=== PATIENT | female | born 1975 | race Caucasian/White ===

== ENCOUNTER 2019-05-13 12:29 | Inpatient (IN) | payer MEDICAID, SELFPAY ==
[2019-05-13 12:35] VITALS: BP 124/79; PULSE 85; RESP 16; TEMP 36.9; O2SAT 98; BMI 20.5
--- NOTE | 2019-05-13 12:40 | ECG_ITS ---
Measurements Intervals [place] Rate: 69 P: 50 CT: 126 QRS: 69 QRSD: 85 T: 42 QT: 409 QTc: 439 SINUS RHYTHM No previous ECG available for comparison Electronically Signed On 05-14-2019 9:01:07 CDT by Andreas Chowdary M.D. [email or web address]
--- NOTE | 2019-05-13 12:44 | ED_ITS ---
Entered by Lizy Lawrence, acting as scribe for Alyssa Caballero [place] May 13, 2019 12:29 HPI - Psych General: Chief Complaint: Psychiatric Symptoms Stated Complaint: mhe Time Seen by Provider: 05/13/19 12:38 Source: patient Mode of arrival: ambulatory Limitations: no limitations History of Present Illness: HPI Narrative: 44 yo Female presents to ED with complaints of darrel and suicidal ideation. Pt states that she has not been taking psychiatric medications because she didn't feel like her medications were correct before. Pt states that she has been thinking about killing herself recently. Pt states that she would like to come into the [facility] to get some help and get put on the correct medications. MD complaint: suicidal ideation Onset (ago): week(s) Duration: constant History of same: Yes Relieving factors: none Exacerbating factors: none Context: not taking psychiatric medications Associated psychiatric symptoms: suicidal ideation and other (manic episodes) Associated symptoms: Reports suicidal ideation and other (manic episodes) Treatments prior to arrival: none If self harm: admits thoughts of self harm Review of Systems General: Reports: other (negative unless marked) Const: Denies: fever, chills, body aches, fatigue, malaise or diaphoresis Eyes: Denies: change in vision or blurry vision ENMT: Denies: throat pain, painful swallowing, hoarseness, ear pain, ear discharge, Change in hearing or nasal discharge Card: Denies: chest pain, palpitations, irregular heart rhythm, syncope, pre- syncope, shortness of breath on exertion or shortness of breath when lying down Resp: Denies: shortness of breath, productive cough, non-productive cough, wheezing, coughing up blood or chest congestion GI: Denies: abdominal pain, nausea, vomiting, vomiting blood, coffee grounds in vomit, diarrhea, constipation, cramping, blood in stool or black tarry stool : Denies: flank pain, painful urination, urinary frequency, urinary urgency, decreased urine ouput, urinary incontinence or blood in urine Musc: Denies: neck pain, back pain, extremity pain, extremity swelling, joint pain, joint swelling, joint warmth or joint stiffness Skin/Breast: Denies: rash, skin tenderness or yellow skin Neuro: Denies: headache, numbness in extremities, weakness in extremities, changes in sensation, lack of coordination, difficulty walking, dizziness, vertigo or confusion Psych: Reports: suicidal ideation and other (manic episodes) Endo: Denies: excessive thirst, tired all the time, cold intolerance, excessive sweating, flushing or hot flashes Jacky/Lymph: Denies: easy bruising, easy bleeding, petechiae or enlarged lymph nodes All/Imm: Denies: hives, throat swelling, tongue swelling, facial swelling or acute wheezing PFSH ED PFSH: Medical History (Updated 05/13/19 @ 13:25 by Alyssa Caballero) Bipolar disorder Social History Smoking and tobacco status: current every day smoker Female Reproductive History: Date of last menstrual period: 04/28/19 Physical Exam Const: COMMON NORMALS: no apparent distress, oriented x3, no limitations, healthy appearing and well nourished EXAM LIMITATIONS: no altered mental status GENERAL APPEARANCE: cooperative, well kempt and well developed ORIENTATION/CONSCIOUSNESS: Yes awake HENMT: COMMON NORMALS: normocephalic, head/scalp atraumatic, hearing grossly normal bilaterally, external ears normal, EAC's normal, external nose normal and moist oral mucous membranes HEAD & SCALP: normal to inspection, normocephalic and atraumatic FACE & SINUS: normal facial exam and face symmetric NOSE: external nose normal and nares normal EXTERNAL EAR: Yes external ears normal EXTERNAL AUDITORY CANAL: EAC's normal MOUTH: oral and palatal mucosa normal and tongue normal Eye: COMMON NORMALS: PERRL, EOMs intact bilaterally, conjunctivae normal and no scleral icterus GENERAL EYE: normal appearance of both eyes and normal light reflex CONJUNCTIVA: Yes conjunctivae normal SCLERA: sclerae normal CORNEA: Yes corneas normal PUPIL: Yes PERRL DIRECT OPHTHALMOSCOPY: Yes normal light reflex Neck/C-Spine: COMMON NORMALS: full ROM, no lymphadenopathy, supple, no meningeal signs and no JVD GENERAL: Yes normal visual inspection and Yes trachea midline CERVICAL SPINE: Yes cervical ROM normal Chest: COMMONS NORMALS: inspection of chest normal and palpation of chest normal Resp: COMMON NORMALS: normal respiratory effort, no retractions, no use of accessory muscles and clear to auscultation bilaterally EFFORT & INSPECTION: Yes able to speak in complete sentences AUSCULTATION: clear to auscultation bilaterally Cardio: COMMON NORMALS: no JVD, regular rate, regular rhythm, S1 normal heart sound, S2 normal heart sound, no gallops, no clicks, no murmurs and no rub JUGULAR VENOUS DISTENTION: no JVD RATE: regular rate RHYTHM: regular rhythm HEART SOUNDS: S1 normal and S2 normal GI: COMMON NORMALS: soft to palpation, non-tender, no hepatosplenomegaly and no masses INSPECTION: Yes normal to inspection PALPATION: Yes soft and Yes no hepatosplenomegaly : COMMON NORMALS: Yes no CVA tenderness BLADDER/KIDNEY EXAM: Yes no CVA tenderness Back/Pelvis: COMMON NORMALS: no CVA tenderness, thoracic and lumbar spine normal to inspection, no thoracic nor lumbar tenderness and thoraco-lumbar ROM normal Extremity: COMMON NORMALS: normal to inspection, full ROM, normal capillary refill, no joint enlargement, no clubbing, cyanosis or edema and no calf tenderness Neuro: COMMON NORMALS: oriented x3, CN's II-XII intact bilaterally, moves all extremities, no focal motor deficits and no sensory deficits noted MENINGEAL SIGNS: Yes no meningeal signs Psych: COMMON NORMALS: mental status grossly normal, thought process normal, cooperative, affect normal, speech normal and activity/motor behavior normal APPEARANCE: Yes well kempt SPEECH: Yes normal speech THOUGHT PROCESS: normal thought process Skin: COMMON NORMALS: no rashes or lesions noted, skin turgor normal, no jaundice, no petechiae and no mottling GENERAL SKIN EXAM: no rashes or lesions noted and turgor normal MDM - Psych MDM Narrative: Medical decision making narrative: The case was reviewed with Dr. Potts, he agrees to admission for a voluntary evaluation for suicidal ideation. Lab Data: Labs: Lab Results 05/13/19 05/13/19 05/13/19 Range/Units 12:54 12:54 12:54 WBC 6.4 (4.0-10.0) 10^3/ uL RBC 4.16 (4.1-5.3) 10^6/u L Hgb 11.8 (11.5-15.3) g/dL Hct 36.9 L (37.0-47.0) % MCV 88.7 (81-99) fL MCH 28.4 (28.0-34.0) pg MCHC 32.0 (30.0-36.0) g/dL RDW 14.2 (12.1-15.1) % Plt Count 353 (130-400) 10^3/c mm MPV 10.2 (7.4-10.4) fL Neut % (Auto) 47.0 % Lymph % (Auto) 42.5 % Roane % (Auto) 8.3 % Eos % (Auto) 1.4 % Baso % (Auto) 0.8 % Neut # (Auto) 3.0 (1.8-7.7) 10^3/u L Lymph # (Auto) 2.7 (0.8-4.8) 10^3/u L Roane # (Auto) 0.5 (0.2-0.9) 10^3/u L Eos # (Auto) 0.1 (0.0-0.8) 10^3/u L Baso # (Auto) 0.1 (0.0-0.1) 10^3/u L Nucleated RBC % (a uto) 0 % Nucleated RBCs # 0.0 /100WBC Sodium 136 (136-145) mmol/L Potassium 4.4 (3.5-5.1) mmol/L Chloride 102 (98-107) mmol/L Carbon Dioxide 22 (22-29) mmol/L Anion Gap 16.4 (5-19) BUN 10 (6-20) mg/dL Creatinine 0.7 (0.5-0.9) mg/dL GFR Calculation 90.9 (90-130) mL/min Glucose 100 (65-115) mg/dL Calculated Osmolal ity 278 L (285-295) mOsm/k g Calcium 9.6 (8.5-10.5) mg/dL Total Bilirubin 0.4 (0.15-1.2) mg/dL AST 38 H (0-32) U/L ALT 42 H (0-33) U/L Alkaline Phosphata se 52 (35-105) IU/L Total Protein 7.8 (6.6-8.7) g/dL Albumin 4.1 (3.5-5.2) g/dL Globulin 3.7 (1.3-4.6) g/dL TSH 0.36 (0.27-4.20) uIU/ mL HCG, Qual (Negative) Salicylates < 0.3 L (3-10) mg/dL Acetaminophen < 5.0 L (10-30) ug/mL Phenytoin 0.8 L (10-20) ug/mL Valproic Acid 2.8 L (50-100) mcg/mL Carbamazepine 2.0 L (4.0-12.0) ug/mL [place] 0.1 L (0.6-1.2) mmol/L Ethyl Alcohol < 10 (0-10) mg/dL 05/13/19 Range/Units 13:19 WBC (4.0-10.0) 10^3/ uL RBC (4.1-5.3) 10^6/u L Hgb (11.5-15.3) g/dL Hct (37.0-47.0) % MCV (81-99) fL MCH (28.0-34.0) pg MCHC (30.0-36.0) g/dL RDW (12.1-15.1) % Plt Count (130-400) 10^3/c mm MPV (7.4-10.4) fL Neut % (Auto) % Lymph % (Auto) % Roane % (Auto) % Eos % (Auto) % Baso % (Auto) % Neut # (Auto) (1.8-7.7) 10^3/u L Lymph # (Auto) (0.8-4.8) 10^3/u L Roane # (Auto) (0.2-0.9) 10^3/u L Eos # (Auto) (0.0-0.8) 10^3/u L Baso # (Auto) (0.0-0.1) 10^3/u L Nucleated RBC % (a uto) % Nucleated RBCs # /100WBC Sodium (136-145) mmol/L Potassium (3.5-5.1) mmol/L Chloride (98-107) mmol/L Carbon Dioxide (22-29) mmol/L Anion Gap (5-19) BUN (6-20) mg/dL Creatinine (0.5-0.9) mg/dL GFR Calculation (90-130) mL/min Glucose (65-115) mg/dL Calculated Osmolal ity (285-295) mOsm/k g Calcium (8.5-10.5) mg/dL Total Bilirubin (0.15-1.2) mg/dL AST (0-32) U/L ALT (0-33) U/L Alkaline Phosphata se (35-105) IU/L Total Protein (6.6-8.7) g/dL Albumin (3.5-5.2) g/dL Globulin (1.3-4.6) g/dL TSH (0.27-4.20) uIU/ mL HCG, Qual Negative (Negative) Salicylates (3-10) mg/dL Acetaminophen (10-30) ug/mL Phenytoin (10-20) ug/mL Valproic Acid (50-100) mcg/mL Carbamazepine (4.0-12.0) ug/mL [place] (0.6-1.2) mmol/L Ethyl Alcohol (0-10) mg/dL EKG Data^: EKG 1: Attestation: I personally reviewed and interpreted this EKG as follows: EKG interpretation date: 05/13/19 EKG interpretation time: 13:22 Interpretation: Normal sinus rhythm at 69 beats a minute, normal intervals, no blocks. No acute changes. Discharge Plan Discharge Patient Disposition: Placed in Observation Admit Provider: Yohan Potts Clinical Impression: Suicidal ideation Condition: Stable Discharge Date/Time: 05/13/19 17:24 Coding Level of Care Code ED Welt Wheeler for Chg Fwd Exam Comprehensive The documentation recorded by the Melinda campbell Carmen, accurately reflects the service I personally performed and the decisions made by Ada joyner Eli N May 13, 2019 12:29
--- NOTE | 2019-05-13 13:12 | PC.PHAR ---
pt states she has been out of celexa,seroquel,and ativan for a month
[2019-05-13 13:14] LABS: Basophils # 0.1 10^3/uL (0.0-0.1); Basophils % 0.8 %; Eosinophils # 0.1 10^3/uL (0.0-0.8); Eosinophils % 1.4 %; Hematocrit 36.9 % (37.0-47.0); Hemoglobin 11.8 g/dL (11.5-15.3); Lymphocytes # 2.7 10^3/uL (0.8-4.8); Lymphocytes % 42.5 %; Mean Corpuscular Hemoglobin 28.4 pg (28.0-34.0); Mean Corpuscular Volume 88.7 fL (81-99); Mean Platelet Volume 10.2 fL (7.4-10.4); Monocytes # 0.5 10^3/uL (0.2-0.9); Monocytes % 8.3 %; Nucleated Red Blood Cells % 0 %; Platelet Count 353 10^3/cmm (130-400); Red Blood Count 4.16 10^6/uL (4.1-5.3); Red Cell Distribution Width 14.2 % (12.1-15.1); White Blood Count 6.4 10^3/uL (4.0-10.0)
[2019-05-13 13:26] LABS: Lithium 0.1 mmol/L (0.6-1.2)
[2019-05-13 13:38] LABS: Alanine Aminotransferase 42 U/L (0-33); Albumin Level 4.1 g/dL (3.5-5.2); Alkaline Phosphatase 52 IU/L (35-105); Anion Gap 16.4 (5-19); Aspartate Amino Transferase 38 U/L (0-32); Blood Urea Nitrogen 10 mg/dL (6-20); Calcium 9.6 mg/dL (8.5-10.5); Carbon Dioxide 22 mmol/L (22-29); Chloride 102 mmol/L (98-107); Globulin 3.7 g/dL (1.3-4.6); Glomerular Filtration Rate 90.9 mL/min (90-130); Glucose 100 mg/dL (65-115); Osmolality Calculated 278 mOsm/kg (285-295); Phenytoin Dilantin 0.8 ug/mL (10-20); Potassium 4.4 mmol/L (3.5-5.1); Sodium 136 mmol/L (136-145); Thyroid Stimulating Hormone 0.36 uIU/mL (0.27-4.20); Total Bilirubin 0.4 mg/dL (0.15-1.2); Total Protein 7.8 g/dL (6.6-8.7); Valproic Acid Level 2.8 mcg/mL (50-100)
[2019-05-13 13:41] LABS: Acetaminophen < 5.0 ug/mL (10-30); Alcohol Level < 10 mg/dL (0-10); Salicylate < 0.3 mg/dL (3-10)
[2019-05-13 14:03] LABS: HCG Qualitative Urine. Negative (Negative)
[2019-05-13 16:00] VITALS: BP 117/79; PULSE 67; RESP 15; TEMP 37.1; O2SAT 98
--- NOTE | 2019-05-13 16:04 | PC.NURSE ---
pateint sleeping quietly no problems at all
[2019-05-13 16:21] VITALS: BP 113/82; PULSE 81; RESP 18; TEMP 37; O2SAT 99
[2019-05-13 16:56] VITALS: BP 113/82; PULSE 81; RESP 18; TEMP 37; O2SAT 99
[2019-05-13] MEDS: hyDROXYzine 25 mg Capsule 50 MG PO (17:18)
--- NOTE | 2019-05-13 17:18 | PC.NURSE ---
Addendum entered by Roshni Cosby LPN 05/13/19 18:52: prn med effective no further c/o anxiety pt asleep in bed in room Original Note: PRN VISTARIL 50 MG GIVEN PO PER PT C/O INCREASED ANXIETY. PT SPECIFICALLY ASKING FOR ATIVAN WILL CONT TO MONITOR
[2019-05-13] MEDS: nicotine 2 mg Gum BUCCAL (18:02)
[2019-05-13] MEDS: OLANZapine ODT 5 MG TABLET PO (18:02)
--- NOTE | 2019-05-13 18:02 | PC.NURSE ---
PRN ZYPREXA ZIDUS 5 MG i FOR AGITATION, AGGRESSION AND VERBAL ALTERCATION WITH ANOTHER PATIENT.
[2019-05-13 19:03] LABS: Amphetamines Screen Urine Negative (Negative); Barbiturates Screen Urine Negative (Negative); Benzodiazepines Screen Urine Negative (Negative); Cocaine Screen Urine Negative (Negative); Opiate Screen Urine Negative (Negative); PCP Screen Urine Negative (Negative); THC Screen Urine Negative (Negative)
[2019-05-13 20:58] VITALS: BP 111/63; PULSE 76; RESP 22; TEMP 36.8; O2SAT 97
[2019-05-13 22:00] VITALS: BP 111/63; PULSE 76; RESP 22; TEMP 36.8; O2SAT 97
[2019-05-14 06:00] VITALS: BP 107/63; PULSE 64; RESP 17; TEMP 36.7; O2SAT 100
--- NOTE | 2019-05-14 10:48 | PM.NHP ---
Providers/Chief Complaint Admitting Physician: Yohan Potts MD Chief Complaint: mhe HPI [facility] History of Present Illness Tamie Mathew is a 44 year old female who presented to the emergency room reporting that she was suicidal and had been off of her medication. She endorsed that her medications had not been effective and so she had stopped taking them. She was admitted to the neuropsychiatric unit for definitive treatment. She presents as a willing patient but a poor historian. Most of her answers were some version of I do not know. We reviewed her charts and we discussed the risks benefits and alternatives of restarting medications based on her reports and she understood and agreed to proceed as is documented in the note. We started Seroquel 100 mg p.o. nightly which she reports has been extremely effective in stabilizing her. We also started or agreed to start Celexa 20 mg p.o. every morning. Given her propensity to answer I will no we reviewed her most recent psychiatric evaluation from an inpatient stay. She endorsed that the substance of it was accurate and represented to her reality at that time as she was denying any significant changes at this time. Per most recent [facility] [place]: History of Present Illness Date of Service: Oct 28, 2015 Chief Complaint: I don't care anymore HPI: Ms. Mathew is a 40-year-old female who is well known to a behavioral health services who was brought to the emergency department for worsening suicidal ideation in the context of recent family conflict. It appears that within the past 2 days associates had a conflict with her mother and her sister and they kicked me out of the house . Patient reports that she was doing fine until this incident, reporting good mood, but low appetite, but experiencing the usual life conflicts. She states that she chronically struggles with suicidal ideation. Patient does have a history of substance use and reports that she used amphetamines and opioids 2 days ago. She also reports that she drank some alcohol. She was quite vague about amounts. She does admit to intravenous drug use, has a diagnosis of hepatitis C, states that she was tested for HIV in September was negative. She smokes 3 cigarettes per day She denies any symptoms consistent with darrel, hypomania, psychosis. With regard to anxiety symptoms and she states I am too tired to care . She is hoping to get help with her suicidal ideation and also safely detox from her substances. Allergies: Coded Allergies: NAPROXEN (Unverified Allergy, Unknown, 10/18/13) Meds NPU Allergies Allergy/AdvReac Type Severity Reaction Status Date / Time lithium AdvReac Severe Unknown Verified 05/15/19 18:48 PFSH N[facility] PFSH: Medical History (Updated 06/04/19 @ 08:05 by Yohan Potts MD) Bipolar 1 disorder, mixed, moderate Bipolar disorder Family History (Updated 05/15/19 @ 09:22 by Kenneth Cooper) Denies family history of Dementia Psychiatric illness Suicide Social History Smoking and tobacco status: current every day smoker Mental Status Exam MSE Comments: This is a slender/underweight white female with adequate dress grooming and eye contact. No abnormal movements. Cooperative with exam in no acute distress. Speech was normal rate and volume mood described as manic affect slightly subdued. Thought process organized. Thought content: Patient denied any suicidal or homicidal ideation at this moment, there were no delusions reported or noted, she denies any auditory or visual hallucinations. Attention and concentration are intact and memory is unreliable but none were formally tested. She is alert and oriented x3. Insight and judgment are limited. Vitals/I&O/Wt Last Vital Signs Temp 99.1 F 05/16/19 16:32 Pulse 90 05/16/19 16:32 Resp 20 H 05/16/19 16:32 BP 111/65 05/16/19 16:32 Pulse Ox 96 05/16/19 16:32 Data NPU : 05/13/19 12:54 05/13/19 12:54 A&P Assessment and plan (1) Bipolar 1 disorder, mixed, moderate: This is a 44-year-old white female with history of bipolar disorder recently off of medication presenting to the emergency room with suicidal thoughts and desiring to be admitted in restart her medications. 1. Continue current medication. Except: 2. Start Celexa 20 mg p.o. every morning and Seroquel 100 mg p.o. nightly. 3. Encourage individual, group and milieu therapy. 4. Continue to 15-minute checks for safety. Status: Acute Involuntary Hold Information 96 Hour Hold: 96 Hour Involuntary Admission: No Attestations [facility] Medical Necessity Statement*: Inpatient hospitalization is medically necessary and the clinically appropriate intervention at this time. We will monitor medications and adjust as indicated. Likely length of stay 3-5 days. Coding Level of Care Code Acute Agricultural Sales Representative for Chg Fwd Diagnoses Bipolar 1 disorder, mixed, moderate F31.62
[2019-05-14 13:45] VITALS: BP 95/58; PULSE 77; RESP 16; TEMP 36.3; O2SAT 98
[2019-05-14 14:00] VITALS: BP 95/58; PULSE 77; RESP 16; TEMP 36.3; O2SAT 98
[2019-05-14] MEDS: citalopram 20 mg Tablet PO (17:55)
[2019-05-14] MEDS: OLANZapine ODT 5 MG TABLET PO (17:55)
--- NOTE | 2019-05-14 17:55 | PC.NURSE ---
Addendum entered by Lisset Ambrose LPN 05/14/19 18:46: medication effective. patient is lying in bed resting, respiration even and unlabored. Original Note: PRN ZYPREXA ZYDIS ZYPREXA ZYDIS 5MG PO PER PATIENT C/O AGITATION/ANXIETY. WILL CONTINUE TO MONITOR FOR MEDICATION EFFECTIVENESS.
[2019-05-14] MEDS: quetiapine 100 mg Tablet PO (20:28)
--- NOTE | 2019-05-14 20:28 | PC.NURSE ---
HS MED GIVEN, SLEEPING MED OFFERED BUT REFUSED AT THIS TIME.
[2019-05-14 21:53] VITALS: BP 86/51; PULSE 70; RESP 16; TEMP 36.8; O2SAT 99
[2019-05-15 06:00] VITALS: BP 104/72; PULSE 86; RESP 16; TEMP 36.8; O2SAT 95
--- NOTE | 2019-05-15 08:56 | PM.NHP ---
Providers/Chief Complaint Admitting Physician: Yohan Potts MD Primary Care Provider: Unknown Chief Complaint: mhe HPI NPU History of Present Illness Tamie Mathew is a 44 year old female with a known history of bipolar disorder. She complains of racing thoughts, flight of ideas, impulsiveness, decreased need for sleep agitation and suicidal ideation. The patient reports she was diagnosed with bipolar disorder (unknown type) ever since I was an adult. She was taking medications but stopped them because she didn't feel like they were helping her. When she is depressed she has no motivation, but calms reclusive, likes to sleep all the time and is afflicted with suicidal ideation. At times she has symptoms pertinent to darrel and depression and probably has mixed episodes. The patient has been thinking about killing herself recently. She seeks admission to get help and receive the correct medications. She says that quetiapine 100 mg p.o. nightly smooths out her mood swings and citalopram 40 mg p.o. daily is effective for her depressive episodes. She says the reason she quit is that she is not on Medicaid and cannot afford these medicines. She says she was tried on lithium long ago and developed an allergic reaction. She is not able at this time to clarify further. Review of Systems Narrative: General: Reports: other (negative unless marked) Const: Denies: fever, chills, body aches, fatigue, malaise or diaphoresis Eyes: Denies: change in vision or blurry vision ENMT: Denies: throat pain, painful swallowing, hoarseness, ear pain, ear discharge, Change in hearing or nasal discharge Card: Denies: chest pain, palpitations, irregular heart rhythm, syncope, pre-syncope, shortness of breath on exertion or shortness of breath when lying down Resp: Denies: shortness of breath, productive cough, non-productive cough, wheezing, coughing up blood or chest congestion GI: Denies: abdominal pain, nausea, vomiting, vomiting blood, coffee grounds in vomit, diarrhea, constipation, cramping, blood in stool or black tarry stool : Denies: flank pain, painful urination, urinary frequency, urinary urgency, decreased urine ouput, urinary incontinence or blood in urine Musc: Denies: neck pain, back pain, extremity pain, extremity swelling, joint pain, joint swelling, joint warmth or joint stiffness Skin/Breast: Denies: rash, skin tenderness or yellow skin Neuro: Denies: headache, numbness in extremities, weakness in extremities, changes in sensation, lack of coordination, difficulty walking, dizziness, vertigo or confusion Psych: Reports: suicidal ideation and other (manic episodes) Endo: Denies: excessive thirst, tired all the time, cold intolerance, excessive sweating, flushing or hot flashes Jacky/Lymph: Denies: easy bruising, easy bleeding, petechiae or enlarged lymph nodes All/Imm: Denies: hives, throat swelling, tongue swelling, facial swelling or acute wheezing. Meds NPU Home Medications Medication Instructions Recorded Confirmed Type diphenhydramine HCl [Benadryl] 50 mg PO BEDTIME PRN 05/13/19 05/13/19 History melatonin 10 mg PO BEDTIME PRN 05/13/19 05/13/19 History Allergies Allergy/AdvReac Type Severity Reaction Status Date / Time lithium AdvReac Severe Unknown Unverified 05/15/19 09:19 PFSH NPU PFSH: Medical History (Updated 05/15/19 @ 10:04 by Kenneth Cooper) Bipolar 1 disorder, mixed, moderate This is a longstanding diagnosis and her current crisis is the product of noncompliance with medications which she asserts are known to have stabilized her. Bipolar disorder Family History (Updated 05/15/19 @ 09:22 by Kenneth Cooper) Denies family history of Dementia Psychiatric illness Suicide Social History Smoking and tobacco status: current every day smoker Other Psychiatric History: Other Psychiatric History: Patient is unable to expand on her past history. To almost every question she answers, I do not know. NHANES Social Connection/Isolation: Are you now , , , , never or living with a partner?: In a typical week, how many times do you talk on the telephone with family, friends, or neighbors?: Three or More Times per Week (Patient lives with her mother and her 10- and 14-year-old children) How often do you get together with friends or relatives?: Three or More Times per Week Do you belong to any clubs or organizations such as quaker groups unions, fraternal or athletic groups, or school groups?: Decline to Answer Social isolation score (0-1 are the most socially isolated patients): 1 Social isolation score reviewed/action taken: Yes Mental Status Exam MSE Comments: This is a 44-year-old, thin, disheveled female who presents at her stated age. Mood is dysphoric and the patient reports suicidal ideation. Thought processes are scattered and speech is somewhat garbled and difficult to understand. It is pressured when she answers questions. At other times she says nothing. She makes no eye contact. Cognition: Patient Appearance: Disheveled/Poor Hygiene Level of Consciousness: Awake, Alert and Drowsy Attention Span Ability: Unable to Focus Level of Alertness: Alert, Sleepy, Unable to Remain Focused on Simple Task, Unable to Repeat Simple Word Forward and Backward and Unable to Repeat String of Integers Forward and Backward Patient Cognition Impaired: Yes (Her innate intelligence is not commensurate with her current performance, possibly reflecting her depressed, suicidal state.) Ability to Follow Directions: Fair Executive Function Ability: Unable to Hold Focus Patient Orientation (long list): Person, Place, Time, Name, Age, Birthday, Month and Year Comprehension Ability: Mild Impairment Memory Description: Intact and Working Intact Perception: None Receptive Language Skills Age Appropriate: Yes Hallucination Type: None Delusion Description: Not Present Thought Process: Disorganized and Flight of Ideas Thought Content: Flight of Ideas, Disorganized and Racing Anxiety: Anxiety Level: Experiencing a Lot of Symptoms and Sensations Precipitating Stress Factors: Environmental Anxiety Triggers: Loss of Coping Ability Affect: Mood Description: Guarded Affect Description: Guarded Depressive Symptoms: Changes in Appetite, Difficulty Concentrating, Difficulty Making Decisions, Hopelessness, Increased Fatigue, Loss of Energy, Loss of Interest in Activities, Low Self Esteem, Recurrent Thoughts of or Suicide, Sleeping More Than Usual and Unhappiness Behavior: Patient Behavior: Appropriate Attitude Description: Passive and Guarded Emotional State Description: Distressed and Sleepy Speech Pattern: Garbled Voice Loudness: Normal Restraint Use Risk: Mental Disorder and Suicidal Thoughts Vitals/I&O/Wt Last Vital Signs Temp 98.3 F 05/15/19 06:00 Pulse 86 05/15/19 06:00 Resp 16 05/15/19 06:00 BP 104/72 05/15/19 06:00 Pulse Ox 95 05/15/19 06:00 Weight last 48 hrs Weight 135 lb Physical Exam Narrative: EXAM NARRATIVE: Skin: Unremarkable Head: Normocephalic. There is no evidence of trauma. Eyes: Pupils equal round regular reactive to light and accommodation. ENT: No inflammation or drainage. Neck: Supple no bruits no thyromegaly. Chest: Clear to auscultation.. Heart: Normal sinus rhythm. Neurologic: No cerebellar, sensory or motor deficit noted. Data NPU : 05/13/19 12:54 05/13/19 12:54 A&P Assessment and plan (1) Bipolar 1 disorder, mixed, moderate: Patient has symptoms of suicidal ideation and manic symptoms. A mixed episode is at hand. The patient has known pharmacotherapy which she asserts has been effective in stabilizing her mood. It should be reinstated as described above. She should be involved in [facility] and healthcare social worker needs to effectuate follow-up care through our [facility] [place] clinic. If possible Medicaid application should be effectuated. Status: Acute Code(s): F31.62 - Bipolar disorder, current episode mixed, moderate (2) Suicidal ideation: This is an acute diagnosis which is the product of noncompliance with medications which she asserts are known to have stabilized her. The patient has known pharmacotherapy which she asserts has been effective in stabilizing her mood. It should be reinstated as described above. She should be involved in [facility] and healthcare social worker needs to effectuate follow-up care through our [facility] clinic. If possible Medicaid application should be effectuated. Status: Acute Code(s): R45.851 - Suicidal ideations Involuntary Hold Information 96 Hour Hold: 96 Hour Involuntary Admission: No Attestations NPU Medical Necessity Statement*: The patient is newly admitted with unstable mood disorder and suicidal ideation. I anticipate 5-7 midnights additional stay. Time Spent in Patient Care: Greater than 35 minutes (>than 50% of time spent in counselling and/or direct pt care on unit). Coding Level of Care Code Acute Silver Solderer for [facility] Fwd Diagnoses Bipolar 1 disorder, mixed, moderate F31.62 Suicidal ideation R45.851
[2019-05-15] MEDS: citalopram 20 mg Tablet PO (09:45)
[2019-05-15 14:00] VITALS: BP 106/59; PULSE 84; RESP 18; TEMP 36.8; O2SAT 98
[2019-05-15] MEDS: OLANZapine ODT 5 MG TABLET PO (18:26)
[2019-05-15] MEDS: nicotine 2 mg Gum BUCCAL (18:26)
--- NOTE | 2019-05-15 18:26 | PC.NURSE ---
PRN ZYPREXA ZYDIS ZYPREXA ZYDIS 5MG PO PER PT C/O AGITATION/ANXIETY. WILL CONTINUE TO MONITOR FOR MEDIATION EFFECTIVENESS.
[2019-05-15] MEDS: quetiapine 100 mg Tablet PO (20:08)
--- NOTE | 2019-05-15 20:11 | PC.NURSE ---
HS meds given at this time.
[2019-05-15 21:27] VITALS: BP 94/59; PULSE 83; RESP 19; TEMP 37.1; O2SAT 100
[2019-05-16 06:00] VITALS: BP 112/70; PULSE 74; RESP 18; TEMP 36.6
[2019-05-16] MEDS: citalopram 20 mg Tablet 40 MG PO (09:03)
[2019-05-16] MEDS: nicotine 2 mg Gum BUCCAL (09:18)
[2019-05-16] MEDS: hyDROXYzine 25 mg Capsule 50 MG PO (10:09)
--- NOTE | 2019-05-16 10:09 | PC.NURSE ---
PRN VISTARIL VISTARIL 50MG PO PER PT C/O ANXIETY. WILL CONTINUE TO MONITOR FOR MEDICATION EFFECTIVENESS.
[2019-05-16 14:00] VITALS: BP 111/65; PULSE 90; RESP 20; TEMP 37.3; O2SAT 96
--- NOTE | 2019-05-16 16:25 | PM.NDC ---
Diagnoses at Discharge Discharge Diagnosis (1) Bipolar 1 disorder, mixed, moderate: Status: Inactive Problem details: This is a longstanding diagnosis and her current crisis is the product of noncompliance with medications which she asserts are known to have stabilized her. (2) Suicidal ideation: Status: Resolved Reason for Visit Reason for Visit: Reason For Visit: [facility] Hospital Course Hospital Course This 44-year-old female came to us complaining of racing thoughts, flight of ideas, impulsiveness, decreased need for sleep agitation and suicidal ideation. The patient reports she was diagnosed with bipolar disorder (unknown type) ever since I was an adult. She was taking medications but stopped them because she didn't feel like they were helping her. When she is depressed she has no motivation, but calms reclusive, likes to sleep all the time and is afflicted with suicidal ideation. At times she has symptoms pertinent to darrel and depression and probably has mixed episodes. The patient has been thinking about killing herself recently. She seeks admission to get help and receive the correct medications. She says that quetiapine 100 mg p.o. nightly smooths out her mood swings and citalopram 40 mg p.o. daily is effective for her depressive episodes. She says the reason she quit is that she is not on Medicaid and cannot afford these medicines. She was profoundly obtunded and could hardly speak. She had obviously been on some intoxicant and was coming off of it. We do not have confirmation from her urine drug screen. She indicated that she had been on citalopram 40 mg p.o. daily and quetiapine 100 mg p.o. nightly, which was initiated immediately. This plus the absence of her suspected intoxicant yielded an overnight massive improvement. Her current mental status is within the normal range in all parameters and she denies suicidal or homicidal ideation, plan or intent. Involuntary Hold Information 96 Hour Hold: 96 Hour Involuntary Admission: No Mental Status Exam MSE Comments: This is a 44-year-old, thin, female who presents at her stated age. She is now organized and well-groomed. Mood is far brighter and the patient denies suicidal and homicidal ideation, plan or intent. Thought processes are organized and free of blocking, racing or looseness of association. Speech is of normal rate and volume, without dysarthria, aprosody or pressure. She is responsive to inquiry and makes good eye contact. Cognition: Level of Consciousness: Awake, Alert and no longer drowsy Attention Span Ability: Able to Focus Level of Alertness: Alert, without impairment. Patient Cognition Impaired: No (Her innate intelligence is now commensurate with her current performance.) Ability to Follow Directions: Good Executive Function Ability: Able to Hold Focus Patient Orientation (long list): Person, Place, Time, Name, Age, Birthday, Month and Year Comprehension Ability: No impairment Memory Description: Intact and Working Intact Perception: No impairment Receptive Language Skills Age Appropriate: Yes Hallucination Type: None Delusion Description: Not Present Thought Process: Organized and free of looseness of association, racing or blocking. Thought Content: No flight of ideas. Stream of thought is coherent. Anxiety: Calm and relaxed. Precipitating Stress Factors: Environmental Anxiety Triggers: Loss of Coping Ability Affect: Appropriate Affect Description: Euthymic Depressive Symptoms: None in evidence today Behavior: Appropriate Attitude Description: Cooperative and upbeat. Emotional State Description: Content and looking forward to a recovery meeting Speech Pattern: Normal rate and volume. Easily understandable. Restraint Use Risk: None Discharge Data Vitals: Last Vital Signs Temp 99.1 F 05/16/19 14:00 Pulse 90 05/16/19 14:00 Resp 20 H 05/16/19 14:00 BP 111/65 05/16/19 14:00 Pulse Ox 96 05/16/19 14:00 Discharge Plan Discharge Patient Disposition: Home, Self-Care Condition: Stable Prescriptions: New quetiapine 100 mg Tablet 100 mg PO BEDTIME Qty: 30 RF: 1 citalopram 20 mg Tablet 40 mg PO DAILY Qty: 60 RF: 1 Discontinued diphenhydramine HCl [Benadryl] 25 mg Capsule 50 mg PO BEDTIME PRN (Reason: Sleep) RF: 0 melatonin 10 mg Tablet 10 mg PO BEDTIME PRN (Reason: Sleep) RF: 0 Discharge Orders: Discharge Order (Routine); Ordered 05/16/19 Ordered By: Kenneth Cooper Discharge Diet: Usual diet Discharge Activity: Resume usual activity Patient Instructions: Quetiapine (By mouth), Citalopram (By mouth) Activity Restrictions/Additional Instructions: [facility] at [facility] [address] [facility]. [address] [address] walk-in hours 7:30 a.m.-2:30 p.m. go some time within the walk-in hours and request initial intake in order to get established with outpatient mental health services. Possible primary care services: [facility], [place] Address: [address] [place] [address], [address], [place] [address] Hours 8 a.m. -5 p.m., Sunday-Sunday Discharge Attestations NPU Time Spent in Discharge Care*: greater than 30 min Specific Discharge Activities: Specific discharge activities: educating patient, discussing with pcp/other providers, discussing with immigration case worker/social workers/dc planners, documenting/other paperwork and evaluating patient/reviewing data Time Spent in Smoking Cessation: Time spent discussing smoking cessation with patient: 3 to 10 minutes Status at Discharge: Cognitive status at discharge: cognitively intact, Behavioral status at discharge: cooperative, Functional status at discharge: independent ambulation Overall status at discharge: patient is back to baseline Coding Level of Care Code Acute Hospital Unit Clerk for [facility] Fwd Diagnoses Bipolar 1 disorder, mixed, moderate F31.62 Suicidal ideation R45.851
[2019-05-16 16:32] VITALS: BP 111/65; PULSE 90; RESP 20; TEMP 37.3; O2SAT 96
--- NOTE | 2019-07-05 11:24 | PM.PN ---
Subjective Subjective: Interval history: Patient called having run out of her medication asking if we get help her with a refill. Vitals/I&O/Wt Last Vital Signs Temp 99.1 F 05/16/19 16:32 Pulse 90 05/16/19 16:32 Resp 20 H 05/16/19 16:32 BP 111/65 05/16/19 16:32 Pulse Ox 96 05/16/19 16:32 Data : 05/13/19 12:54 05/13/19 12:54 A&P Additional A&P Information Patient called the unit and was running out of medication. Given the condition of the outpatient services in their inability to CV: Get her medications refilled fast enough we agreed to call in medication for her until the outpatient services can take over. Seroquel 100 mg by mouth daily at bedtime a 30 day supply with one refill. Celexa 40 mg by mouth every morning a 38 supply with 1 refill. Attestations Medical Necessity Statement*: There was no patient contact and patient denied any urgent needs other than her medications being refilled no need for inpatient services. Coding Level of Care Code Acute Highway Traffic Control Technician for [facility]
== END 2019-05-16 17:04 | disposition home or self-care (01) | DRG 885 ==
LOC: ER 13:25 → NP 15:11
PROVIDERS: Admitting Provider Psychiatry & Neurology Psychiatry; Emergency Provider Emergency Medicine; Visit Provider Psychiatry & Neurology Psychiatry
DX: F31.62 Bipolar disorder, current episode mixed, moderate (principal); R45.851 Suicidal ideations; F17.210 Nicotine dependence, cigarettes, uncomplicated
CPT/HCPCS: 12345; 36415; 80053; 80156; 80164; 80178; 80185; 80307; 81025; 84443; 85025; 93005; 99284; A9270

== ENCOUNTER 2019-09-09 09:27 | Emergency (ER) | payer MEDICAID, SELFPAY | END 2019-09-09 12:24 | disposition admitted as inpatient to this hospital (09) | LOC: ER 09-11 21:22 | PROVIDERS: Emergency Provider Physician Assistant | DX: R45.851 Suicidal ideations (principal); F31.89 Other bipolar disorder; F17.210 Nicotine dependence, cigarettes, uncomplicated | CPT/HCPCS: 36415; 80053; 80306; 80307; 84703; 85025; 99284; 99285 ==

== ENCOUNTER 2019-09-09 09:27 | Inpatient (IN) | payer MEDICAID, SELFPAY ==
[2019-09-09] VITALS (7 sets, daily range): BP systolic 100–134; BP diastolic 65–96; PULSE 71–85; RESP 14–18; TEMP 36.5–37; O2SAT 98–100; BMI 20.7
--- NOTE | 2019-09-09 09:35 | W.ED.PSYCH ---
HPI - Psych General: Chief Complaint: Psychiatric Symptoms Stated Complaint: ASKING TO GO TO NPU Time Seen by Provider: 09/09/19 09:35 Source: patient Mode of arrival: EMS Limitations: no limitations History of Present Illness: HPI Narrative: Patient is a 44-year-old female with a history of bipolar here for complaints of suicidal ideations and feelings of darrel. Patient tells me yesterday she got into an argument with her mother who has guardianship of her two children and is fearful that the mother will kick her out and she will not be able to see her kids. She tells me she has not slept over the past 2 days and feels extremely anxious and irritable. Patient has no specific plan for suicide. She denies homicidal ideations. She denies visual or auditory hallucinations. She denies drug or alcohol use. MD complaint: suicidal ideation and feels depressed Onset (ago): hour(s) History of same: Yes Context: significant life stressor Associated psychiatric symptoms: depression, suicidal ideation and racing thoughts Associated symptoms: Reports depression and suicidal ideation; Deny auditory hallucinations, visual hallucinations or homicidal ideation Treatments prior to arrival: none If self harm: admits thoughts of self harm Review of Systems Const: Denies: fever(s) or chills Card: Denies: chest pain, palpitations, lightheadedness or syncope Resp: Denies: dyspnea GI: Denies: abdominal pain, nausea, vomiting or diarrhea Skin/Breast: Denies: rash Neuro: Denies: headache(s) Psych: Reports: anxiety, depression, mood swings, irritability and suicidal ideation; Denies: visual hallucinations, auditory hallucinations or homicidal ideation [facility] PFSH: Medical History (Updated 09/09/19 @ 10:41 by JOCELYNN Hernandez) Bipolar 1 disorder, mixed, moderate Bipolar disorder Borderline personality disorder History of concussion Family History (Updated 05/15/19 @ 09:22 by Kenneth Cooper) Denies family history of Dementia Psychiatric illness Suicide Social History (Updated 09/09/19 @ 09:38 by Niesha Dill RN) Smoking and tobacco status: current every day smoker Current gender identity: Female Female Reproductive History: Date of last menstrual period: 09/09/19 Physical Exam Const: COMMON NORMALS: no acute distress, patient oriented x3, alert and well nourished GENERAL APPEARANCE: cooperative ORIENTATION/CONSCIOUSNESS: Yes oriented to person, Yes oriented to place and Yes oriented to time Resp: COMMON NORMALS: normal respiratory effort and clear to auscultation bilaterally AUSCULTATION: clear to auscultation bilaterally Cardio: COMMON NORMALS: regular rate and regular rhythm RATE: regular rate RHYTHM: regular rhythm Neuro: COMMON NORMALS: patient oriented x3 SENSORIUM/ORIENTATION: Yes alert, Yes oriented to person, Yes oriented to place and Yes oriented to time Psych: COMMON NORMALS: mental status grossly normal, Normal thought process present, cooperative, normal affect, speech normal and activity/motor behavior normal APPEARANCE: Yes grossly normal ATTITUDE: Yes calm ACTIVITY/MOTOR BEHAVIOR: Yes appropriate eye contact and No psychomotor agitation SPEECH: Yes normal speech MOOD & AFFECT: Yes euthymic mood THOUGHT PROCESS: Normal thought process present THOUGHT CONTENT: Yes Suicidality present ATTENTION/CONCENTRATION: Yes attention grossly intact and Yes concentration grossly intact MEMORY/COGNITION: Yes memory grossly intact and Yes cognition grossly intact INSIGHT: Good insight present (Psych) JUDGEMENT: Good judgement present (Psych) MDM - Psych Lab Data: Labs: Lab Results 09/09/19 09/09/19 09/09/19 Range/Units 09:45 09:45 09:45 WBC 10.8 H (4.0-10.0) 10^3/ uL RBC 4.12 (4.1-5.3) 10^6/u L Hgb 11.8 (11.5-15.3) g/dL Hct 37.1 (37.0-47.0) % MCV 90.0 (81-99) fL MCH 28.6 (28.0-34.0) pg MCHC 31.8 (30.0-36.0) g/dL RDW 14.0 (12.1-15.1) % Plt Count 384 (130-400) 10^3/c mm MPV 9.7 (7.4-10.4) fL Neut % (Auto) 77.1 % Lymph % (Auto) 17.2 % [place] % (Auto) 4.7 % Eos % (Auto) 0.2 % Baso % (Auto) 0.5 % Neut # (Auto) 8.4 H (1.8-7.7) 10^3/u L Lymph # (Auto) 1.9 (0.8-4.8) 10^3/u L [place] # (Auto) 0.5 (0.2-0.9) 10^3/u L Eos # (Auto) 0.0 (0.0-0.8) 10^3/u L Baso # (Auto) 0.1 (0.0-0.1) 10^3/u L Nucleated RBC % (a uto) 0 % Nucleated RBCs # 0.0 /100WBC Sodium 138 (136-145) mmol/L Potassium 3.8 (3.5-5.1) mmol/L Chloride 101 (98-107) mmol/L Carbon Dioxide 27 (22-29) mmol/L Anion Gap 13.8 (5-19) BUN 10 (6-20) mg/dL Creatinine 0.7 (0.5-0.9) mg/dL GFR Calculation 90.9 (90-130) mL/min Glucose 100 (65-115) mg/dL Calculated Osmolal ity 282 L (285-295) mOsm/k g Calcium 9.2 (8.5-10.5) mg/dL Total Bilirubin 0.6 (0.15-1.2) mg/dL AST 23 (0-32) U/L ALT 17 (0-33) U/L Alkaline Phosphata se 62 (35-105) IU/L Total Protein 7.8 (6.6-8.7) g/dL Albumin 4.4 (3.5-5.2) g/dL Globulin 3.4 (1.3-4.6) g/dL HCG, Qual Negative (Negative) Salicylates < 0.3 L (3-10) mg/dL Acetaminophen < 5.0 L (10-30) ug/mL Ethyl Alcohol < 10 (0-10) mg/dL Discharge Plan Discharge Patient Disposition: Admitted As Inpatient Clinical Impression: Bipolar 1 disorder, mixed, moderate, Suicidal ideation Condition: Stable Coding Level of Care Code ED Breaker Mechanic for [facility] Fwd Exam Expanded Problem Focused
--- NOTE | 2019-09-09 09:44 | PC.NURSE ---
Pt states upon assessment that she is having issues with her family and does not want to be at home, she states that she does however want to see her children and she is struggling with what to do. She states she was very manic last night and she began to have suicidal ideations.
[2019-09-09 09:52] LABS: Basophils # 0.1 10^3/uL (0.0-0.1); Basophils % 0.5 %; Eosinophils % 0.2 %; Hematocrit 37.1 % (37.0-47.0); Hemoglobin 11.8 g/dL (11.5-15.3); Lymphocytes # 1.9 10^3/uL (0.8-4.8); Lymphocytes % 17.2 %; Mean Corpuscular HGB Conc 31.8 g/dL (30.0-36.0); Mean Corpuscular Hemoglobin 28.6 pg (28.0-34.0); Mean Platelet Volume 9.7 fL (7.4-10.4); Monocytes # 0.5 10^3/uL (0.2-0.9); Monocytes % 4.7 %; Neutrophils # 8.4 10^3/uL (1.8-7.7); Neutrophils % 77.1 %; Nucleated Red Blood Cells % 0 %; Platelet Count 384 10^3/cmm (130-400); Red Blood Count 4.12 10^6/uL (4.1-5.3); White Blood Count 10.8 10^3/uL (4.0-10.0)
[2019-09-09 10:07] LABS: HCG, Serum Qual Negative (Negative)
[2019-09-09 10:13] LABS: Alanine Aminotransferase 17 U/L (0-33); Albumin Level 4.4 g/dL (3.5-5.2); Alkaline Phosphatase 62 IU/L (35-105); Anion Gap 13.8 (5-19); Aspartate Amino Transferase 23 U/L (0-32); Blood Urea Nitrogen 10 mg/dL (6-20); Calcium 9.2 mg/dL (8.5-10.5); Carbon Dioxide 27 mmol/L (22-29); Chloride 101 mmol/L (98-107); Globulin 3.4 g/dL (1.3-4.6); Glomerular Filtration Rate 90.9 mL/min (90-130); Glucose 100 mg/dL (65-115); Osmolality Calculated 282 mOsm/kg (285-295); Potassium 3.8 mmol/L (3.5-5.1); Sodium 138 mmol/L (136-145); Total Bilirubin 0.6 mg/dL (0.15-1.2); Total Protein 7.8 g/dL (6.6-8.7)
[2019-09-09 10:16] LABS: Acetaminophen < 5.0 ug/mL (10-30); Alcohol Level < 10 mg/dL (0-10); Salicylate < 0.3 mg/dL (3-10)
[2019-09-09 12:28] LABS: Amphetamines Screen Urine Negative (Negative); Barbiturates Screen Urine Negative (Negative); Benzodiazepines Screen Urine Negative (Negative); Cocaine Screen Urine Negative (Negative); Opiate Screen Urine Negative (Negative); PCP Screen Urine Negative (Negative); THC Screen Urine Positive (Negative)
[2019-09-09] MEDS: OLANZapine 5 mg ODT PO (13:19)
--- NOTE | 2019-09-09 13:19 | PC.NURSE ---
PRN ZYPREXA ZYDIS ZYPREXA ZYDIS 5MG PO PER PATIENT C/O ANXIETY. WILL CONTINUE TO MONITOR FOR MEDICATION EFFECTIVENESS.
--- NOTE | 2019-09-09 14:20 | PC.NURSE ---
PRN ZYPREXA ZYDIS FOLLOW UP MEDICATION EFFECTIVENESS. NO FURTHER C/O ANXIETY. PATIENT LYING IN BED RESTING, RESPIRATIONS EVEN AND UNLABORED.
[2019-09-09] MEDS: doxycycline 100 mg Tablet PO (18:13)
[2019-09-09] MEDS: gabapentin 300 mg Capsule PO (20:25)
[2019-09-09] MEDS: quetiapine 100 mg Tablet PO (20:25)
[2019-09-10 06:00] VITALS: BP 117/75; PULSE 57; RESP 17; TEMP 36.5; O2SAT 98
[2019-09-10] MEDS: BuSPIRONE 5 mg Tablet PO (08:47)
[2019-09-10] MEDS: doxycycline 100 mg Tablet PO (08:47)
[2019-09-10] MEDS: meloxicam 7.5 mg tablet PO (08:48)
[2019-09-10] MEDS: gabapentin 300 mg Capsule PO ×2 (08:48→15:56)
--- NOTE | 2019-09-10 13:04 | PM.NHP ---
Providers/Chief Complaint Admitting Physician: Matthew Knowles MD Chief Complaint: ASKING TO GO TO NPU HPI NPU History of Present Illness Chief complaint: History of present illness:Tamie Mathew is a 44 year old female who was admitted to the adult psychiatric unit with the following chief complaint:HPI Patient is a 44-year-old female with a history of bipolar here for complaints of suicidal ideations and feelings of darrel. Patient tells me yesterday she got into an argument with her mother who has guardianship of her two children and is fearful that the mother will kick her out and she will not be able to see her kids. She tells me she has not slept over the past 2 days and feels extremely anxious and irritable. Patient has no specific plan for suicide. She denies homicidal ideations. She denies visual or auditory hallucinations. She denies drug or alcohol use. Discharge Diagnosis (1) Bipolar 1 disorder, mixed, moderate: Status: Inactive Problem details: This is a longstanding diagnosis and her current crisis is the product of noncompliance with medications which she asserts are known to have stabilized her. (2) Suicidal ideation: Status: Resolved Discharge medications: citalopram 40 mg (2 x 20 mg) PO DAILY quetiapine 100 mg PO BEDTIME Mental health history: This is her second hospitalization this year. Her hospitalization on 05/14/2019 give these details.HPI Narrative: Patient is a 44-year-old female with a history of bipolar here for complaints of suicidal ideations and feelings of darrel. Patient tells me yesterday she got into an argument with her mother who has guardianship of her two children and is fearful that the mother will kick her out and she will not be able to see her kids. She tells me she has not slept over the past 2 days and feels extremely anxious and irritable. Patient has no specific plan for suicide. She denies homicidal ideations. She denies visual or auditory hallucinations. She denies drug or alcohol use. According to her subsequent outpatient assessment on 06/19/2019: Suicide Ideation for the Past Month Have you wished you were or wished you could go to sleep and not wake up?: Yes Have you actually had any thoughts of killing yourself? (e.g., ?I?ve thought about killing myself?): Yes If YES to 2, ask questions 3, 4, 5, and 6. If NO to 2, go directly to question 6 Have you been thinking about how you might do this? ?I thought about taking an overdose but I never made a specific plan as to when where or how I would actually do it and I would never go through with it : Yes ( I have in the past ) I thought about taking an overdose but I never made a specific plan as to when, where, or how I would actually do it....and I would never go through with it Have you had these thoughts and had some intention of acting on them? As opposed to ?I have the thoughts but I definitely will not do anything about them.?: Yes (overdosed recently) As opposed to I have the thoughts but I definitely will not do anything about them. Have you started to work out or worked out the details of how to kill yourself and do you intend to carry out this plan?: Yes Have you done anything, started to do anything, or prepared to do anything to end your life?: Yes How long ago did you do any of these?: Within the last three months? - Last Reconciled 06/19/19 by Lupe Mueller Social history: Legal history: She has 4 arrests in the past 6 years, all for theft. Today she states that it is her understanding that she will be likely remanded for senior living time at her next court date. Past medical history: Please see emergency room notes. Meds NPU Home Medications Medication Instructions Recorded Confirmed Last Taken Type citalopram 40 mg tablet 40 mg PO DAILY 30 Days #30 tab 07/07/19 09/09/19 09/08/19 Rx Seroquel 100 mg PO BEDTIME 09/09/19 09/09/19 09/08/19 History baclofen 5 mg PO BEDTIME PRN 09/09/19 09/09/19 Unknown History buspirone 5 mg PO DAILY 09/09/19 09/09/19 Unknown History doxycycline hyclate 100 mg PO BID 09/09/19 09/09/19 Unknown History gabapentin 300 mg PO TID 09/09/19 09/09/19 Unknown History ibuprofen 200 - 800 mg PO PRN 09/09/19 09/09/19 Unknown History meloxicam 7.5 mg PO DAILY 09/09/19 09/09/19 Unknown History Allergies Allergy/AdvReac Type Severity Reaction Status Date / Time lithium AdvReac Severe Unknown Verified 09/09/19 09:37 PFSH NPU PFSH: Medical History (Updated 09/09/19 @ 10:41 by JOCELYNN Hernandez) Bipolar 1 disorder, mixed, moderate Bipolar disorder Borderline personality disorder History of concussion Family History (Updated 05/15/19 @ 09:22 by Kenneth Cooper) Denies family history of Dementia Psychiatric illness Suicide Social History (Updated 09/09/19 @ 09:38 by Niesha Dill RN) Smoking and tobacco status: current every day smoker Current gender identity: Female Mental Status Exam MSE Comments: Mental Status Exam: The patient is alert and interpersonally engaged female appearing younger than her stated age. Gait is unremarkable with no focal neurological signs. She is believed to be a reliable informant to the best of her ability. Appearance: hygiene is fair; no gross neurological deficits., gait is unremarkable; AIMS=0 Speech: Speech is of normal rate and rhythm and easily understood. Thought processes: Thought processes are abstract. Judgment is adequate for safety. Associations: intact Psychotic processes: There is no indication of guarding or paranoia. There is no attention to the internal stimuli. Auditory and visual hallucinations are denied. Judgment: Insight is fair. Problem solving skills are adequate for safety. Orientation: The patient is oriented to person, place time and situation. Memory: no deficits noted in immediate, intermediate, or remote spheres. Attention: The patient is alert and interpersonally engaged. Language: Verbalizations are coherent. Fund of knowledge: Fund of knowledge is adequate. Affect/Mood: Affect is tearful with a depressed mood. She denied suicidal ideation Affective range constricted Psychosis: perception unimpaired except through cognitive distortion; reality testing intact. Vitals/I&O/Wt Last Vital Signs Temp 97.7 F 09/10/19 06:00 Pulse 57 L 09/10/19 06:00 Resp 17 09/10/19 06:00 BP 117/75 09/10/19 06:00 Pulse Ox 98 09/10/19 06:00 Weight last 48 hrs Weight 61.689 kg Data NPU : 09/09/19 09:45 09/09/19 09:45 A&P Additional A&P Information Diagnoses: Adjustment disorder with disturbance of mood Borderline personality disorder Bipolar disorder?by history Assessment: The patient has an established pattern of utilizing of the inpatient service for crisis intervention. This appears to be consistent with those past utilizations. No medication changes will be performed at this time. Treatment plan: Patient was admitted to the adult psychiatric unit where she was entered into the full array of individual and group therapies as part of the adult psychiatric unit protocol. Due to the psychiatric conditions and treatment listed in the Assessment and Plan - the patient requires continued hospitalization. Will provide a safe and therapeutic environment for patient.. Will continue inpatient treatment to allow for medication adjustment and monitoring. Will continue q15 min safety checks. Will continue Seroquel 100 mg at bedtime and citalopram 40 mg daily. And monitor for medication side effects. Monitor patient's mood, sleep, appetite, and behavior closely. Encourage patient to participate in individual and group therapeutic sessions on the bustillos. Estimated length of stay 5 days The expected benefits and potential side effects of patient's psychiatric medications were discussed with the patient. The patient understands and consents to treatment.CRITERIA FOR DISCHARGE: stable on medications and no longer an im Involuntary Hold Information 96 Hour Hold: 96 Hour Involuntary Admission: No Attestations NPU Medical Necessity Statement*: Patient will remain in the hospital 3-4 nights for acute stabilization and crisis. 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
[2019-09-10] MEDS: citalopram 20 mg Tablet 40 MG PO (13:47)
[2019-09-10] MEDS: LORazepam 0.5 mg Tablet PO (13:51)
--- NOTE | 2019-09-10 13:52 | PC.NURSE ---
PT NOTE: PATIENT GIVEN ATIVAN 0.5MG PRN FOR ANXIETY.
--- NOTE | 2019-09-10 15:59 | PM.NDC ---
Diagnoses at Discharge Discharge Diagnosis (1) Suicidal ideation: Status: Resolved (2) Borderline personality disorder: Status: Chronic (3) Adjustment disorder with mixed disturbance of emotions and conduct: Status: Resolved Reason for Visit Reason for Visit: ASKING TO GO TO NPU Brief History: History of present illness:Tamie Mathew is a 44 year old female who was admitted to the adult psychiatric unit with the following chief complaint:HPI Patient is a 44-year-old female with a history of bipolar here for complaints of suicidal ideations and feelings of darrel. Patient tells me yesterday she got into an argument with her mother who has guardianship of her two children and is fearful that the mother will kick her out and she will not be able to see her kids. She tells me she has not slept over the past 2 days and feels extremely anxious and irritable. Patient has no specific plan for suicide. She denies homicidal ideations. She denies visual or auditory hallucinations. She denies drug or alcohol use. Discharge Diagnosis (1) Bipolar 1 disorder, mixed, moderate: Status: Inactive Problem details: This is a longstanding diagnosis and her current crisis is the product of noncompliance with medications which she asserts are known to have stabilized her. (2) Suicidal ideation: Status: Resolved Discharge medications: citalopram 40 mg (2 x 20 mg) PO DAILY quetiapine 100 mg PO BEDTIME Mental health history: This is her second hospitalization this year. Her hospitalization on 05/14/2019 give these details.HPI Narrative: Patient is a 44-year-old female with a history of bipolar here for complaints of suicidal ideations and feelings of darrel. Patient tells me yesterday she got into an argument with her mother who has guardianship of her two children and is fearful that the mother will kick her out and she will not be able to see her kids. She tells me she has not slept over the past 2 days and feels extremely anxious and irritable. Patient has no specific plan for suicide. She denies homicidal ideations. She denies visual or auditory hallucinations. She denies drug or alcohol use. According to her subsequent outpatient assessment on 06/19/2019: Suicide Ideation for the Past Month Have you wished you were or wished you could go to sleep and not wake up?: Yes Have you actually had any thoughts of killing yourself? (e.g., ?I?ve thought about killing myself?): Yes If YES to 2, ask questions 3, 4, 5, and 6. If NO to 2, go directly to question 6 Have you been thinking about how you might do this? ?I thought about taking an overdose but I never made a specific plan as to when where or how I would actually do it and I would never go through with it : Yes ( I have in the past ) I thought about taking an overdose but I never made a specific plan as to when, where, or how I would actually do it....and I would never go through with it Have you had these thoughts and had some intention of acting on them? As opposed to ?I have the thoughts but I definitely will not do anything about them.?: Yes (overdosed recently) As opposed to I have the thoughts but I definitely will not do anything about them. Have you started to work out or worked out the details of how to kill yourself and do you intend to carry out this plan?: Yes Have you done anything, started to do anything, or prepared to do anything to end your life?: Yes How long ago did you do any of these?: Within the last three months? - Last Reconciled 06/19/19 by Lupe Mueller Social history: Legal history: She has 4 arrests in the past 6 years, all for theft. Today she states that it is her understanding that she will be likely remanded for care home time at her next court date. Past medical history: Please see emergency room notes. Hospital Course Hospital Course Patient was admitted to the adult psychiatridc unit and entered into the full array of individual and group psychotherapies. She also recieved an assessment and support from the social work service. She had 24 hourt supervision and support from trained psychiatric nursing personnel. She utilized these services to address her acute situation and came to an acceptable resolution. She was advised to remain in the hospital for further assessment and treatment. She demanded discharge against medical advice. She was not deemed to be an imminent danger to self orothers and was permitted to sign out against medical advice. Involuntary Hold Information 96 Hour Hold: 96 Hour Involuntary Admission: No Mental Status Exam MSE Comments: Mental Status Exam: The patient is alert and interpersonally engaged female appearing younger than her stated age. Gait is unremarkable with no focal neurological signs. She is believed to be a reliable informant to the best of her ability. Appearance: hygiene is fair; no gross neurological deficits., gait is unremarkable; AIMS=0 Speech: Speech is of normal rate and rhythm and easily understood. Thought processes: Thought processes are abstract. Judgment is adequate for safety. Associations: intact Psychotic processes: There is no indication of guarding or paranoia. There is no attention to the internal stimuli. Auditory and visual hallucinations are denied. Judgment: Insight is fair. Problem solving skills are adequate for safety. Orientation: The patient is oriented to person, place time and situation. Memory: no deficits noted in immediate, intermediate, or remote spheres. Attention: The patient is alert and interpersonally engaged. Language: Verbalizations are coherent. Fund of knowledge: Fund of knowledge is adequate. Affect/Mood: Affect is sad with a euthymic mood. She denied suicidal ideation Affective range constricted Psychosis: perception unimpaired except through cognitive distortion; reality testing intact. Discharge Data Vitals: Last Vital Signs Temp 97.7 F 09/10/19 06:00 Pulse 57 L 09/10/19 06:00 Resp 17 09/10/19 06:00 BP 117/75 09/10/19 06:00 Pulse Ox 98 09/10/19 06:00 Discharge Plan Discharge Patient Disposition: Left Against Medical Advice Condition: Stable Prescriptions: Continued citalopram 40 mg tablet 40 mg PO DAILY 30 Days Qty: 30 RF: 2 doxycycline hyclate 100 mg capsule 100 mg PO BID RF: 0 meloxicam 7.5 mg tablet 7.5 mg PO DAILY RF: 0 ibuprofen 200 mg Tablet 200 - 800 mg PO PRN RF: 0 gabapentin 300 mg capsule 300 mg PO TID RF: 0 baclofen 5 mg tablet 5 mg PO BEDTIME PRN (Reason: unknown) RF: 0 Seroquel 100 mg tablet 100 mg PO BEDTIME RF: 0 buspirone 15 mg tablet 5 mg PO DAILY RF: 0 Discharge Orders: Discharge Order (Routine); Ordered 09/10/19 Ordered By: Matthew Knowles Discharge Attestations NPU Time Spent in Discharge Care*: less than 30 min Status at Discharge: Cognitive status at discharge: cognitively intact, Behavioral status at discharge: cooperative, Coding Level of Care Code Acute Stock Unloader for [facility] Fwd Diagnoses Suicidal ideation R45.851 Borderline personality disorder F60.3 Adjustment disorder with mixed disturbance of emotions and conduct F43.25
[2019-09-10 16:35] VITALS: BP 117/75; PULSE 57; RESP 17; TEMP 36.5; O2SAT 98
== END 2019-09-10 17:20 | disposition home or self-care (01) | DRG 882 ==
LOC: ER 10:53 → NP 11:47
PROVIDERS: Physician Assistant; Admitting Provider Psychiatry & Neurology Psychiatry; Visit Provider Psychiatry & Neurology Psychiatry
DX: F43.25 Adjustment disorder with mixed disturbance of emotions and conduct (principal); R45.851 Suicidal ideations; F60.3 Borderline personality disorder; Z53.29 Procedure and treatment not carried out because of patient's decision for other reasons; F17.210 Nicotine dependence, cigarettes, uncomplicated; F31.62 Bipolar disorder, current episode mixed, moderate
CPT/HCPCS: 12345; 36415; 80053; 80306; 80307; 84703; 85025; 99284

== ENCOUNTER 2019-09-14 12:29 | Emergency (ER) | payer MEDICAID, SELFPAY ==
[2019-09-14 12:44] VITALS: BP 130/82; PULSE 88; RESP 18; TEMP 36.8; O2SAT 99; BMI 20.5
--- NOTE | 2019-09-14 12:54 | ED_ITS ---
HPI - Recheck/Abnormal Lab/Rx General: Chief Complaint: Recheck/Abnormal Lab/Rx Stated Complaint: needs meds Time Seen by Provider: 09/14/19 12:46 History of Present Illness: HPI narrative: Patient lost medication after last discharge, requesting refills on antibiotic for infected right pointer finger. Patient also requesting a prescription for lorazepam, buspirone, Celexa, Seroquel. Patient has a lot of situational stress and feels very anxious and unable to cope. Patient is not suicidal at this time states that she only feels anxious and has been out of her medication for 4 days. She is established at [facility] [place], and will call and make an appointment Sunday morning. MD complaint: medication refill request Onset/Timin Initial visit (ago): day(s) Context: ran out of medication Associated symptoms: none Review of Systems General: Reports: 10 or more systems reviewed and unremarkable except in HPI and below Psych: Reports: anxiety and mood swings PFS ED PFSH: Medical History (Updated 09/11/19 @ 00:00 by ) Bipolar 1 disorder, mixed, moderate Bipolar disorder Borderline personality disorder History of concussion Family History (Updated 05/15/19 @ 09:22 by Kenneth Cooper) Denies family history of Dementia Psychiatric illness Suicide Social History (Updated 09/09/19 @ 09:38 by Niesha Dill RN) Smoking and tobacco status: current every day smoker Current gender identity: Female Female Reproductive History: Date of last menstrual period: 09/09/19 Physical Exam Const: COMMON NORMALS: no acute distress and patient oriented x3 GENERAL APPEARANCE: anxious and disheveled NUTRITIONAL APPEARANCE: thin ORIENTATION/CONSCIOUSNESS: Yes awake HENMT: COMMON NORMALS: normocephalic, atraumatic and Normal external nose present HEAD & SCALP: normocephalic and atraumatic FACE & SINUS: normal facial exam and face symmetric NOSE: Normal external nose present Eye: COMMON NORMALS: Equal, round and reactive pupils present PUPIL: Yes Equal, round and reactive pupils present Neck/C-Spine: COMMON NORMALS: full ROM and no lymphadenopathy Lymph: LYMPHATIC: no lymphadenopathy noted and no lymphedema noted Chest: COMMONS NORMALS: normal inspection of the chest and normal palpation of entire chest wall Resp: COMMON NORMALS: normal respiratory effort, No retractions, No use of accessory muscles and clear to auscultation bilaterally AUSCULTATION: clear to auscultation bilaterally Cardio: COMMON NORMALS: regular rhythm, S1 normal heart sound present and S2 normal heart sound present RHYTHM: regular rhythm HEART SOUNDS: S1 normal heart sound present and S2 normal heart sound present GI: COMMON NORMALS: Normal to inspection, nondistended, normoactive bowel sounds present : COMMON NORMALS: Yes no CVA tenderness BLADDER/KIDNEY EXAM: Yes no CVA tenderness Back/Pelvis: COMMON NORMALS: no CVA tenderness Neuro: COMMON NORMALS: patient oriented x3 Psych: COMMON NORMALS: Normal thought process present and speech normal APPEARANCE: Yes unkempt ATTITUDE: Yes agitated ACTIVITY/MOTOR BEHAVIOR: Yes appropriate eye contact SPEECH: Yes normal speech THOUGHT PROCESS: Normal thought process present THOUGHT CONTENT: Yes Normal thought content present ATTENTION/CONCENTRATION: Yes attention grossly intact MEMORY/COGNITION: Yes memory grossly intact INSIGHT: Fair insight present (Psych) JUDGEMENT: Fair judgement present (Psych) Skin: SKIN IMAGES (FEMALE): 1. Cellulitis of pointer finger from unknown source. Course ED course: Discussed need for close follow-up with [facility] [place] regarding her antidepressants and lorazepam use, discussed importance of compliance of medication regimen to control overall anxiety. Patient agrees to make follow-up appointment with PCP regarding cellulitis of her pointer finger along with follow-up appointment with [facility] [place] as she was recently discharged from the Neuropsych Unit on 09-08. Patient is adamant she is not suicidal today just feels anxious since she has been out of her medication. Vital Signs: Vital signs: Vital Signs Temperature 98.2 F 09/14/19 12:44 Pulse Rate 88 09/14/19 12:44 Respiratory Rate 18 09/14/19 12:44 Blood Pressure 130/82 09/14/19 12:44 Pulse Oximetry 99 09/14/19 12:44 Discharge Plan Discharge Patient Disposition: Home, Self-Care Condition: Stable Prescriptions: New buspirone 5 mg tablet 5 mg PO DAILY Qty: 30 RF: 0 citalopram 40 mg tablet 40 mg PO DAILY Qty: 30 RF: 0 quetiapine [Seroquel] 100 mg tablet 100 mg PO .HS Qty: 30 RF: 0 amoxicillin-pot clavulanate [Augmentin] 875-125 mg tablet 1 tab PO Q8H 5 Days Qty: 15 RF: 0 No Action citalopram 40 mg tablet 40 mg PO DAILY 30 Days Qty: 30 RF: 2 doxycycline hyclate 100 mg capsule 100 mg PO BID RF: 0 meloxicam 7.5 mg tablet 7.5 mg PO DAILY RF: 0 ibuprofen 200 mg Tablet 200 - 800 mg PO PRN RF: 0 gabapentin 300 mg capsule 300 mg PO TID RF: 0 baclofen 5 mg tablet 5 mg PO BEDTIME PRN (Reason: unknown) RF: 0 Seroquel 100 mg tablet 100 mg PO BEDTIME RF: 0 buspirone 15 mg tablet 5 mg PO DAILY RF: 0 Discharge Orders: Discharge Order (Routine); Ordered 09/14/19 Ordered By: Kyung Alba Referrals: Reagan Pollack [Primary Care Provider] - Discharge Diet: Usual diet Patient Instructions: Generalized Anxiety Disorder (ED) Activity Restrictions/Additional Instructions: Follow up with [facility] [place] as discussed, 1 month of antidepressants refilled as requested and further refills will need to come from [facility] [place]. Coding Level of Care Code ED Group Insurance Specialist for [facility]
[2019-09-14] MEDS: amoxicillin-clav 875-125 mg Tablet 1 TAB PO (13:11)
[2019-09-14] MEDS: LORazepam 1 mg Tablet PO (13:11)
[2019-09-14] MEDS: citalopram 20 mg Tablet 40 MG PO (13:11)
== END 2019-09-14 13:33 | disposition home or self-care (01) ==
PROVIDERS: Emergency Provider Nurse Practitioner Family; PCP Family Medicine
DX: Z76.0 Encounter for issue of repeat prescription (principal); F17.210 Nicotine dependence, cigarettes, uncomplicated
CPT/HCPCS: 12345; 99281; 99283

== ENCOUNTER 2019-10-24 15:03 | Emergency (ER) | payer MEDICAID, SELFPAY ==
[2019-10-24 15:04] VITALS: BP 119/75; PULSE 107; RESP 32; TEMP 36.9; O2SAT 100; BMI 19.8
--- NOTE | 2019-10-24 15:07 | ECG_ITS ---
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 Measurements Intervals [place] Rate: 117 P: -14 AR: 121 QRS: 78 QRSD: 90 T: -77 QT: 339 QTc: 473 Interpretive Statements [address]US T[address] DEVIATION AND MODERATE T-WAVE ABNORMALITY, CONSIDER INFERIOR ISCHEMIA [-0.1+ mV T WAVE IN II/aVF] Compared to ECG 05/13/2019 13:22:15 T-wave abnormality now present Possible ischemia now present Sinus rhythm no longer present Electronically Signed On 10-25-2019 19:34:15 CDT by Luis Sanderson M.D. [email or web address]
--- NOTE | 2019-10-24 15:17 | ED_ITS ---
HPI - Psych General: Chief Complaint: Psychiatric Symptoms Stated Complaint: ANXIETY/ METH USE/ AGITATED Time Seen by Provider: 10/24/19 15:05 Source: patient Mode of arrival: ambulatory Limitations: no limitations History of Present Illness: HPI Narrative: Tamie is a 44-year-old female who comes in with multiple complaints. Primarily she states that she shot methamphetamines an hour before coming to the hospital and she believes she got some bad product. Patient states she feels uneasy all over, anxious and she is afraid she has infection in her bloodstream. She believes that she may have used a dirty needle. Patient wants to relax but cannot do so. She is asking for help with her anxiety. Patient is a limited historian secondary to her anxiety. Review of Systems General: Reports: Other (ROS incomplete secondary to patient's uncooperation) [facility] ED PFSH: Medical History Bipolar 1 disorder, mixed, moderate Bipolar disorder Borderline personality disorder History of concussion Family History Denies family history of Dementia Psychiatric illness Suicide Social History Smoking and tobacco status: current every day smoker Current gender identity: Female Female Reproductive History: Date of last menstrual period: 09/09/19 Physical Exam Const: COMMON NORMALS: patient oriented x3 GENERAL APPEARANCE: anxious HENMT: COMMON NORMALS: normocephalic, atraumatic, external ears normal, EAC's normal and Normal external nose present HEAD & SCALP: normal to inspection, normocephalic and atraumatic FACE & SINUS: normal facial exam and face symmetric NOSE: Normal external nose present and Normal nares present EXTERNAL EAR: Yes external ears normal EXTERNAL AUDITORY CANAL: EAC's normal MOUTH: Normal oral and palatal mucosa present, lip normal and tongue normal Eye: COMMON NORMALS: Equal, round and reactive pupils present and conjunctivae normal GENERAL EYE: appearance normal, both eyes and all related structures ALIGNMENT: Yes alignment normal PERIORBITAL: periorbital findings normal EYELID: eyelids normal CONJUNCTIVA: Yes conjunctivae normal SCLERA: sclerae normal PUPIL: Yes Equal, round and reactive pupils present Neck/C-Spine: COMMON NORMALS: full ROM, no lymphadenopathy, supple, no meningeal signs and no JVD GENERAL: Yes normal visual inspection and Yes trachea midline Chest: COMMONS NORMALS: normal inspection of the chest and normal palpation of entire chest wall Resp: COMMON NORMALS: normal respiratory effort, No retractions, No use of accessory muscles and clear to auscultation bilaterally EFFORT & INSPECTION: Yes able to speak in complete sentences and Yes symmetric chest movement AUSCULTATION: clear to auscultation bilaterally, no crackles, no rales, no rhonchi and no wheezes Cardio: COMMON NORMALS: no JVD, regular rate, regular rhythm, S1 normal heart sound present and S2 normal heart sound present RATE: regular rate RHYTHM: regular rhythm HEART SOUNDS: S1 normal heart sound present, S2 normal heart sound present, no click, no gallops, no murmurs, no rubs and abnormal split S2 GI: COMMON NORMALS: Soft to palpation and No hepatosplenomegaly present PALPATION: Yes Soft to palpation, No Tenderness to palpation present (GI), No Guarding due to palpation present (GI), No Rigid due to palpation, Yes No hepatosplenomegaly present, No Hernia present, No Palpable mass present and No Pulsatile mass present : COMMON NORMALS: Yes no CVA tenderness BLADDER/KIDNEY EXAM: Yes no CVA tenderness EXTERNAL FEMALE EXAM: No Hernia present Back/Pelvis: COMMON NORMALS: no CVA tenderness, thoracic and lumbar spine normal to inspection, no thoracic nor lumbar tenderness and thoraco-lumbar ROM normal Extremity: COMMON NORMALS: normal to inspection, full ROM, capillary refill normal, no joint enlargement, no clubbing, cyanosis or edema and no calf tenderness Neuro: COMMON NORMALS: patient oriented x3, CN's II-XII intact bilaterally, moves all extremities, no focal motor deficits and no sensory deficits noted MENINGEAL SIGNS: Yes no meningeal signs SPEECH: speech normal Psych: COMMON NORMALS: mental status grossly normal, denies homicidal ideation and denies suicidal ideation MOOD & AFFECT: Yes anxious, Yes tearful, Yes fearful and Yes expansive affect Skin: COMMON NORMALS: no rashes or lesions noted, turgor normal, no jaundice, no petechiae and no mottling GENERAL SKIN EXAM: no rashes or lesions noted and turgor normal MDM - Psych MDM Narrative: Medical decision making narrative: 2036 -patient is up, active, has walked the floors to and from the bathroom without any signs of impairment or ataxia. She is now much less anxious and shows no sign of methamphetamine toxicity. She is requesting to go home. She denies any homicidal or suicidal ideations or intention of harming herself with this. Patient states she uses meth quite often and admits she probably got some bad drugs. I will treat her for a UTI. I have informed her she needs to follow-up for recheck of this as well as her anemia. She agrees to return should her symptoms change or worsen. Patient declines any pelvic exam or further evaluation at this time. Lab Data: Attestation: I reviewed the patient's lab results. Labs: Lab Results 10/24/19 10/24/19 10/24/19 Range/Units 15:38 15:38 15:38 WBC Cancelled Corrected WBC Cancelled RBC Cancelled Hgb Cancelled Hct Cancelled MCV Cancelled MCH Cancelled MCHC Cancelled RDW Cancelled Plt Count Cancelled MPV Cancelled Gran % Cancelled Neut % (Auto) Cancelled Lymph % (Auto) Cancelled [place] % (Auto) Cancelled Eos % (Auto) Cancelled Baso % (Auto) Cancelled Neut # (Auto) Cancelled Lymph # (Auto) Cancelled [place] # (Auto) Cancelled Eos # (Auto) Cancelled Baso # (Auto) Cancelled Absolute Gran (aut o) Cancelled Nucleated RBC % (a uto) Cancelled Nucleated RBCs # Cancelled Sodium 135 L (136-145) mmol/L Potassium 3.3 L (3.5-5.1) mmol/L Chloride 99 (98-107) mmol/L Carbon Dioxide 20 L (22-29) mmol/L Anion Gap 19.3 H (5-19) BUN 11 (6-20) mg/dL Creatinine 0.8 (0.5-0.9) mg/dL GFR Calculation 77.9 L (90-130) mL/min Glucose 87 (65-115) mg/dL Calculated Osmolal ity 275 L (285-295) mOsm/k g Calcium 9.3 (8.5-10.5) mg/dL Magnesium (1.7-2.3) mg/dL Total Bilirubin 1.3 H (0.15-1.2) mg/dL AST 29 (0-32) U/L ALT 17 (0-33) U/L Alkaline Phosphata se 69 (35-105) IU/L Creatine Kinase 180 (26-192) U/L Troponin T Baselin e (0-10) ng/L Total Protein 7.7 (6.6-8.7) g/dL Albumin 4.2 (3.5-5.2) g/dL Globulin 3.5 (1.3-4.6) g/dL HCG, Qual Negative (Negative) Urine Color (Yellow) Urine Appearance (CLEAR) Urine pH (5-7) Ur Specific Gravit y (1.005-1.030) Urine Protein (Negative) Urine Glucose (UA) (Normal) Urine Ketones (Negative) Urine Blood (Negative) Urine Nitrate (Negative) Urine Bilirubin (NEGATIVE) Urine Urobilinogen (Negative) mg/dL Ur Leukocyte Shahnaz ase (Negative) Urine RBC (0-2) /hpf Urine WBC (0-5) /hpf Ur Squamous Epith Cells (0-5) Amorphous Sediment Urine Bacteria (NONE) 10/24/19 10/24/19 10/24/19 Range/Units 15:38 16:56 16:56 WBC 11.3 H Corrected WBC RBC 3.49 L Hgb 10.3 L Hct 31.7 L MCV 90.8 MCH 29.5 MCHC 32.5 RDW 14.3 Plt Count 290 MPV 9.9 Gran % Neut % (Auto) 95.3 Lymph % (Auto) 3.6 [place] % (Auto) 0.4 Eos % (Auto) 0.0 Baso % (Auto) 0.3 Neut # (Auto) 10.75 H Lymph # (Auto) 0.4 L [place] # (Auto) 0.0 L Eos # (Auto) 0.0 Baso # (Auto) 0.0 Absolute Gran (aut o) Nucleated RBC % (a uto) 0 Nucleated RBCs # 0.0 Sodium (136-145) mmol/L Potassium (3.5-5.1) mmol/L Chloride (98-107) mmol/L Carbon Dioxide (22-29) mmol/L Anion Gap (5-19) BUN (6-20) mg/dL Creatinine (0.5-0.9) mg/dL GFR Calculation (90-130) mL/min Glucose (65-115) mg/dL Calculated Osmolal ity (285-295) mOsm/k g Calcium (8.5-10.5) mg/dL Magnesium 1.5 L (1.7-2.3) mg/dL Total Bilirubin (0.15-1.2) mg/dL AST (0-32) U/L ALT (0-33) U/L Alkaline Phosphata se (35-105) IU/L Creatine Kinase (26-192) U/L Troponin T Baselin e (0-10) ng/L Total Protein (6.6-8.7) g/dL Albumin (3.5-5.2) g/dL Globulin (1.3-4.6) g/dL HCG, Qual Cancelled (Negative) Urine Color (Yellow) Urine Appearance (CLEAR) Urine pH (5-7) Ur Specific Gravit y (1.005-1.030) Urine Protein (Negative) Urine Glucose (UA) (Normal) Urine Ketones (Negative) Urine Blood (Negative) Urine Nitrate (Negative) Urine Bilirubin (NEGATIVE) Urine Urobilinogen (Negative) mg/dL Ur Leukocyte Shahnaz ase (Negative) Urine RBC (0-2) /hpf Urine WBC (0-5) /hpf Ur Squamous Epith Cells (0-5) Amorphous Sediment Urine Bacteria (NONE) 10/24/19 10/24/19 Range/Units 16:56 19:12 WBC Corrected WBC RBC Hgb Hct MCV MCH MCHC RDW Plt Count MPV Gran % Neut % (Auto) Lymph % (Auto) [place] % (Auto) Eos % (Auto) Baso % (Auto) Neut # (Auto) Lymph # (Auto) [place] # (Auto) Eos # (Auto) Baso # (Auto) Absolute Gran (aut o) Nucleated RBC % (a uto) Nucleated RBCs # Sodium (136-145) mmol/L Potassium (3.5-5.1) mmol/L Chloride (98-107) mmol/L Carbon Dioxide (22-29) mmol/L Anion Gap (5-19) BUN (6-20) mg/dL Creatinine (0.5-0.9) mg/dL GFR Calculation (90-130) mL/min Glucose (65-115) mg/dL Calculated Osmolal ity (285-295) mOsm/k g Calcium (8.5-10.5) mg/dL Magnesium (1.7-2.3) mg/dL Total Bilirubin (0.15-1.2) mg/dL AST (0-32) U/L ALT (0-33) U/L Alkaline Phosphata se (35-105) IU/L Creatine Kinase (26-192) U/L Troponin T Baselin e 6 (0-10) ng/L Total Protein (6.6-8.7) g/dL Albumin (3.5-5.2) g/dL Globulin (1.3-4.6) g/dL HCG, Qual (Negative) Urine Color Yellow (Yellow) Urine Appearance Sl cloudy A (CLEAR) Urine pH 5 (5-7) Ur Specific Gravit y 1.000 L (1.005-1.030) Urine Protein Neg (Negative) Urine Glucose (UA) Norm (Normal) Urine Ketones 1+ H (Negative) Urine Blood 2+ H (Negative) Urine Nitrate Negative (Negative) Urine Bilirubin Neg (NEGATIVE) Urine Urobilinogen Norm (Negative) mg/dL Ur Leukocyte Shahnaz ase 2+ H (Negative) Urine RBC 5-10 H (0-2) /hpf Urine WBC >100 H (0-5) /hpf Ur Squamous Epith Cells 25-40 H (0-5) Amorphous Sediment 1+ Urine Bacteria 1+ H (NONE) EKG Data^: EKG 1: Attestation: I personally reviewed and interpreted this EKG as follows: EKG interpretation date: 10/24/19 EKG interpretation time: 15:42 Interpretation: Sinus tachycardia 117 beats a minute, nonspecific ST and T wave changes present. EKG 2: Attestation: I personally reviewed and interpreted this EKG as follows: EKG interpretation date: 10/24/19 EKG interpretation time: 19:31 Interpretation: Normal sinus rhythm at 98 beats a minute, normal axis, no acute ST-T wave changes, Discharge Plan Discharge Prescriptions: No Action Unable to Assess RF: 0 Coding Level of Care Code ED Cloth Printing Inspector for Chg Fwd Exam Comprehensive
--- NOTE | 2019-10-24 15:33 | PC.NURSE ---
Upon entering patients room for assessment, patient demanded a 4th blanket and socks, informed her a blanket would be provided in a moment. Tried to proceed with assessment interview and IV insertion. Patient would not answer questions and proceeded to demand more blankets and xanax. Attempted an IV for lorazepam and IV fluids, patient was non compliant, yelled several profanity, moaned, and extremely restless activity.
[2019-10-24] MEDS: LORazepam 2 mg/mL INJ 1 mL IVP (15:58)
[2019-10-24] MEDS: sodium chloride 0.9% 1,000 ML 999 ML IV ×2 (15:58→18:23)
[2019-10-24 16:12] LABS: Alanine Aminotransferase 17 U/L (0-33); Albumin Level 4.2 g/dL (3.5-5.2); Alkaline Phosphatase 69 IU/L (35-105); Aspartate Amino Transferase 29 U/L (0-32); Blood Urea Nitrogen 11 mg/dL (6-20); Calcium 9.3 mg/dL (8.5-10.5); Carbon Dioxide 20 mmol/L (22-29); Chloride 99 mmol/L (98-107); Creatine Phosphokinase 180 U/L (26-192); Globulin 3.5 g/dL (1.3-4.6); Glomerular Filtration Rate 77.9 mL/min (90-130); Glucose 87 mg/dL (65-115); Osmolality Calculated 275 mOsm/kg (285-295); Sodium 135 mmol/L (136-145); Total Bilirubin 1.3 mg/dL (0.15-1.2); Total Protein 7.7 g/dL (6.6-8.7)
[2019-10-24 16:13] LABS: Anion Gap 19.3 (5-19); Potassium 3.3 mmol/L (3.5-5.1)
[2019-10-24 16:24] LABS: HCG, Serum Qual Negative (Negative)
[2019-10-24 17:07] LABS: Basophils % 0.3 %; Hematocrit 31.7 % (37.0-47.0); Hemoglobin 10.3 g/dL (11.5-15.3); Lymphocytes # 0.4 10^3/uL (0.8-4.8); Lymphocytes % 3.6 %; Mean Corpuscular HGB Conc 32.5 g/dL (30.0-36.0); Mean Corpuscular Hemoglobin 29.5 pg (28.0-34.0); Mean Corpuscular Volume 90.8 fL (81-99); Mean Platelet Volume 9.9 fL (7.4-10.4); Monocytes % 0.4 %; Neutrophils # 10.75 10^3/uL (1.8-7.7); Neutrophils % 95.3 %; Nucleated Red Blood Cells % 0 %; Platelet Count 290 10^3/cmm (130-400); Red Blood Count 3.49 10^6/uL (4.1-5.3); Red Cell Distribution Width 14.3 % (12.1-15.1); White Blood Count 11.3 10^3/uL (4.0-10.0)
[2019-10-24 17:31] LABS: Magnesium 1.5 mg/dL (1.7-2.3)
--- NOTE | 2019-10-24 17:58 | ECG_ITS ---
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 Measurements Intervals [place] Rate: 98 P: 22 HI: 114 QRS: 76 QRSD: 77 T: 45 QT: 373 QTc: 476 Interpretive Statements SINUS RHYTHM WITH SHORT HI INTERVAL ST DEVIATION AND MODERATE T-WAVE ABNORMALITY, CONSIDER INFERIOR ISCHEMIA [-0.1+ mV T WAVE IN II/aVF] Compared to ECG 10/24/2019 15:42:14 Short HI interval now present Sinus tachycardia no longer present T-wave abnormality still present Possible ischemia still present Electronically Signed On 10-25-2019 19:30:23 CDT by Luis Sanderson M.D. [id number]
[2019-10-24] MEDS: cefTRIAXone 1,000 MG in sodium chloride 0.9% (plus) 50 ML 100 MG IV (18:24)
[2019-10-24 18:25] VITALS: BP 120/75; PULSE 104; RESP 24
[2019-10-24 18:29] LABS: Troponin(5th) Baseline 6 ng/L (0-10)
[2019-10-24 19:20] VITALS: BP 115/73; PULSE 98; RESP 18; O2SAT 97
--- NOTE | 2019-10-24 19:20 | PC.NURSE ---
Patient up and ambulated to [facility]- urine sample obtained.
[2019-10-24 19:37] LABS: Bilirubin Urine Neg (NEGATIVE); Blood Urine 2+ (Negative); Glucose Urine UA Norm (Normal); Ketones Urine 1+ (Negative); Leukocyte Esterase Urine 2+ (Negative); Nitrate Urine Negative (Negative); Protein Urine Neg (Negative); Urine Color Yellow (Yellow); Urobilinogen Urine Norm (Negative); pH Urine 5 (5-7)
[2019-10-24 19:38] LABS: Add Urine Culture? No; Amorphous Sediment Urine 1+; Bacteria Urine 1+; Squamous Epithelial Cell Urine 25-40 (0-5); WBC Urine >100 /hpf (0-5)
[2019-10-24 20:59] VITALS: BP 108/74; PULSE 64; RESP 16; O2SAT 98
[2019-10-24 22:45] LABS: Troponin 5 2HR Delta 0 ABS# (0-10)
--- NOTE | 2019-10-27 09:42 | PC.NURSE ---
Contact made with pt and notified of [place] infection and need for further treatment.
== END 2019-10-24 21:06 | disposition home or self-care (01) ==
PROVIDERS: Emergency Provider Emergency Medicine; PCP Family Medicine
DX: F41.9 Anxiety disorder, unspecified (principal); F17.210 Nicotine dependence, cigarettes, uncomplicated
CPT/HCPCS: 12345; 80053; 81001; 82550; 83735; 84484; 84703; 85025; 87491; 87591; 87661; 93005; 96365; 96366; 96367; 96375; 96376; 99285; J0696; J2060; J3480; J7030

== ENCOUNTER 2023-07-19 12:21 | Inpatient (IN) | payer BC, MEDICAID, SELFPAY ==
[2023-07-19 12:31] VITALS: BP 127/73; PULSE 75; RESP 18; TEMP 36.8; O2SAT 100
--- NOTE | 2023-07-19 12:38 | ECG_ITS ---
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 Measurements Intervals [place] Rate: 81 P: 70 [place]: 146 QRS: 73 QRSD: 85 T: -29 QT: 403 QTc: 470 Interpretive Statements SINUS RHYTHM WITH FREQUENT VENTRICULAR PREMATURE COMPLEXES LEFT VENTRICULAR HYPERTROPHY AND ST-T CHANGE [VOLTAGE CRITERIA PLUS ST/T ABNORMALITY] Compared to ECG 10/24/2019 19:31:57 Ventricular premature complex(es) now present Left ventricular hypertrophy now present ST (T wave) deviation now present Short [place] interval no longer present T-wave abnormality no longer present Possible ischemia no longer present Electronically Signed On 07-20-2023 0:06:47 CDT by Sally Meredith M.D. [id number]
[2023-07-19 12:59] LABS: Basophils # 0.1 10^3/uL (0.0-0.1); Basophils % 1.1 %; Eosinophils % 0.2 %; Hematocrit 37.9 % (36-47); Lymphocytes # 1.8 10^3/uL (0.8-4.8); Lymphocytes % 38.5 %; Mean Corpuscular HGB Conc 32.7 g/dL (30-55); Mean Corpuscular Hemoglobin 30.3 pg (27-33); Mean Corpuscular Volume 92.7 fl (85-98); Mean Platelet Volume 9.7 fL (7.4-10.4); Monocytes # 0.4 10^3/uL (0.2-0.9); Monocytes % 7.7 %; Neutrophils # 2.38 10^3/uL (1.8-7.7); Neutrophils % 52.3 %; Nucleated Red Blood Cells % 0 %; Platelet Count 334 10^3/cmm (157-399); Red Blood Count 4.09 10^6/uL (3.85-5.65); Red Cell Distribution Width 14.4 % (12.1-15.1); White Blood Count 4.55 10^3/uL (3.29-11.43)
[2023-07-19 13:06] LABS: HCG Qualitative Urine. Negative (Negative)
[2023-07-19 13:20] LABS: Alanine Aminotransferase 31 U/L (0-33); Albumin Level 3.9 g/dL (3.5-5.2); Alcohol Level 101 mg/dL (0-10); Alkaline Phosphatase 71 U/L (35-105); Anion Gap 14.1 (5-19); Aspartate Amino Transferase 32 U/L (0-32); Blood Urea Nitrogen 6 mg/dL (6-20); Calcium 8.6 mg/dL (8.5-10.5); Carbon Dioxide 22 mmol/L (22-29); Chloride 102 mmol/L (98-107); Creatinine Clr Calc Pharmacy 113.7412; Globulin 3.2 g/dL (1.3-4.6); Glomerular Filtration Rate 106.7 mL/min (90-130); Glucose 109 mg/dL (65-115); Osmolality Calculated 278 mOsm/kg (285-295); Potassium 3.1 mmol/L (3.5-5.1); Salicylate 0.9 mg/dL (3-10); Sodium 135 mmol/L (136-145); Total Bilirubin 0.8 mg/dL (0.15-1.2); Total Protein 7.1 g/dL (6.6-8.7)
[2023-07-19 13:21] LABS: Acetaminophen < 5.0 ug/mL (10-30)
[2023-07-19 13:22] LABS: Bilirubin Urine Neg (Negative); Blood Urine Neg (Negative); Glucose Urine UA Norm (Normal); Ketones Urine Negative (Negative); Leukocyte Esterase Urine Negative (Negative); Nitrate Urine Negative (Negative); Protein Urine Neg (Negative); Urine Appearance Clear (CLEAR); Urine Color Colorless (Yellow); Urobilinogen Urine Norm (Negative); pH Urine 6.5 (5-7)
[2023-07-19 13:24] LABS: Amphetamines Screen Urine Positive (Negative); Barbiturates Screen Urine Negative (Negative); Benzodiazepines Screen Urine Negative (Negative); Cocaine Screen Urine Negative (Negative); Opiate Screen Urine Negative (Negative); PCP Screen Urine Negative (Negative); THC Screen Urine Positive (Negative)
[2023-07-19 13:25] LABS: Bacteria Urine TRACE /hpf; RBC Urine RARE /hpf (0-2); Renal Epithelial Cells Urine RARE /hpf; Squamous Epithelial Cell Urine 0-4 /hpf (0-5); WBC Urine RARE /hpf (0-5)
[2023-07-19 13:26] LABS: Add Urine Culture? No
--- NOTE | 2023-07-19 14:08 | ED.C_ITS ---
HPI - Psych 2 General: Chief Complaint: Psychiatric Symptoms Stated Complaint: SI Time Seen by Provider: 07/19/23 12:37 History of Present Illness: Patient with history of bipolar disorder, borderline personality disorder and tobacco dependence and methamphetamine abuse who presents to the emergency room with suicidal thoughts. She says she has been drinking and doing some methamphetamine recently and today she started having suicidal thoughts. She said she would take a fentanyl overdose if she could find some. She is requesting admission to the psychiatric unit. Review of Systems 2 Narrative: Constitutional symptoms: Negative except as documented in HPI. Skin symptoms: Negative except as documented in HPI. Eye symptoms: Negative except as documented in HPI. ENMT symptoms: Negative except as documented in HPI. Respiratory symptoms: Negative except as documented in HPI. Cardiovascular symptoms: Negative except as documented in HPI. Gastrointestinal symptoms: Negative except as documented in HPI. Genitourinary symptoms: Negative except as documented in HPI. Musculoskeletal symptoms: Negative except as documented in HPI. Neurologic symptoms: Negative except as documented in HPI. Psychiatric symptoms: Negative except as documented in HPI. Endocrine symptoms: Negative except as documented in HPI. PFSH ED 2 PFSH: Medical History (Updated 07/19/23 @ 14:15 by Cierra Emerson MD) History of concussion Borderline personality disorder Bipolar 1 disorder, mixed, moderate Bipolar disorder Family History Denies family history of Dementia Psychiatric illness Suicide Social History Smoking and tobacco/nicotine status: current every day tobacco/nicotine user Current gender identity: Female Physical Exam 2 Narrative: EXAM NARRATIVE: General: Alert, no acute distress. Skin: Warm, dry. Head: Normocephalic, atraumatic. Neck: Supple, trachea midline. Eye: Extraocular movements are intact. Ears, nose, mouth and throat: mucosa moist. Cardiovascular: Regular, Normal peripheral perfusion. Respiratory: Lungs are clear to auscultation, respirations are non-labored, breath sounds are equal, Symmetrical chest wall expansion. Gastrointestinal: Soft, Nontender, Non distended, Normal bowel sounds. Musculoskeletal: Normal ROM, no deformity. Neurological: Alert and oriented, No focal neurological deficit observed. Psychiatric: Cooperative, patient endorses suicidal thoughts. Course 2 Vital Signs: Vital signs: Vital Signs Temperature 98.2 F 07/19/23 12:31 Pulse Rate 75 07/19/23 12:31 Respiratory Rate 18 07/19/23 12:31 Blood Pressure 127/73 07/19/23 12:31 Pulse Oximetry 100 07/19/23 12:31 Oxygen Delivery Me thod Room Air 07/19/23 12:31 MDM - Psych Medical Decision Making Differential diagnosis: Patient with reported depression and suicidal ideation. concerns for infection, alcohol intoxication, cardiac issues or other medical problems prior to psychiatric admission. Workup: labwork, ekg ordered to evaluate the pathologies and to clear the patient medically prior to psychiatric admission Lab review: - Medically cleared. - EKG shows no ischemic changes. - Blood alcohol level is 100, as well as salicylate and Tylenol. - Drug screen is positive for methamphetamine and marijuana - No signs of infection, urinalysis clear and white count is not elevated - No anemia. - BUN and creatinine are within normal limits. Consultation: I spoke with Dr. Sood on-call for psychiatry who agrees to admission. Assessment and plan: Suicidal ideation Depression Alcohol abuse Methamphetamine abuse -Admission to neuropsychiatric unit for continued evaluation and treatment. - All imaging and lab work were reviewed and interpreted personally by myself, the ER physician - Evaluation and treatment of this problem were appropriate in the emergency setting Lab Data 07/19/23 12:48 07/19/23 12:48 Laboratory Results WBC 4.55 10^3/uL (3.29-11.43) 07/19/23 12:48 RBC 4.09 10^6/uL (3.85-5.65) 07/19/23 12:48 Hgb 12.40 g/dL (11.27-16.99) 07/19/23 12:48 Hct 37.9 % (36-47) 07/19/23 12:48 MCV 92.7 fl (85-98) 07/19/23 12:48 MCH 30.3 pg (27-33) 07/19/23 12:48 MCHC 32.7 g/dL (30-55) 07/19/23 12:48 RDW 14.4 % (12.1-15.1) 07/19/23 12:48 Plt Count 334 10^3/cmm (157-399) 07/19/23 12:48 MPV 9.7 fL (7.4-10.4) 07/19/23 12:48 Neut % (Auto) 52.3 % 07/19/23 12:48 Lymph % (Auto) 38.5 % 07/19/23 12:48 [place] % (Auto) 7.7 % 07/19/23 12:48 Eos % (Auto) 0.2 % 07/19/23 12:48 Baso % (Auto) 1.1 % 07/19/23 12:48 Neut # (Auto) 2.38 10^3/uL (1.8-7.7) 07/19/23 12:48 Lymph # (Auto) 1.8 10^3/uL (0.8-4.8) 07/19/23 12:48 [place] # (Auto) 0.4 10^3/uL (0.2-0.9) 07/19/23 12:48 Eos # (Auto) 0.0 10^3/uL (0.0-0.8) 07/19/23 12:48 Baso # (Auto) 0.1 10^3/uL (0.0-0.1) 07/19/23 12:48 Nucleated RBC % (auto) 0 % 07/19/23 12:48 Nucleated RBCs # 0.0 /100WBC 07/19/23 12:48 Sodium 135 mmol/L (136-145) L 07/19/23 12:48 Potassium 3.1 mmol/L (3.5-5.1) L 07/19/23 12:48 Chloride 102 mmol/L (98-107) 07/19/23 12:48 Carbon Dioxide 22 mmol/L (22-29) 07/19/23 12:48 Anion Gap 14.1 (5-19) 07/19/23 12:48 BUN 6 mg/dL (6-20) 07/19/23 12:48 Creatinine 0.6 mg/dL (0.5-0.9) 07/19/23 12:48 GFR Calculation 106.7 mL/min (90-130) 07/19/23 12:48 Glucose 109 mg/dL (65-115) 07/19/23 12:48 Calculated Osmolality 278 mOsm/kg (285-295) L 07/19/23 12:48 Calcium 8.6 mg/dL (8.5-10.5) 07/19/23 12:48 Total Bilirubin 0.8 mg/dL (0.15-1.2) 07/19/23 12:48 AST 32 U/L (0-32) 07/19/23 12:48 ALT 31 U/L (0-33) 07/19/23 12:48 Alkaline Phosphatase 71 U/L (35-105) 07/19/23 12:48 Total Protein 7.1 g/dL (6.6-8.7) 07/19/23 12:48 Albumin 3.9 g/dL (3.5-5.2) 07/19/23 12:48 Globulin 3.2 g/dL (1.3-4.6) 07/19/23 12:48 HCG, Qual Negative (Negative) 07/19/23 12:50 Urine Color Colorless (Yellow) 07/19/23 12:50 Urine Appearance Clear (CLEAR) 07/19/23 12:50 Urine pH 6.5 (5-7) 07/19/23 12:50 Ur Specific [place] 1.010 (1.005-1.030) 07/19/23 12:50 Urine Protein Neg (Negative) 07/19/23 12:50 Urine Glucose (UA) Norm (Normal) 07/19/23 12:50 Urine Ketones Negative (Negative) 07/19/23 12:50 Urine Blood Neg (Negative) 07/19/23 12:50 Urine Nitrate Negative (Negative) 07/19/23 12:50 Urine Bilirubin Neg (Negative) 07/19/23 12:50 Urine Urobilinogen Norm mg/dL (Negative) 07/19/23 12:50 Ur Leukocyte Esterase Negative (Negative) 07/19/23 12:50 Urine RBC Rare /hpf (0-2) 07/19/23 12:50 Urine WBC Rare /hpf (0-5) 07/19/23 12:50 Ur Squamous Epith Cells 0-4 /hpf (0-5) H 07/19/23 12:50 Ur Renal Epithelial Cell Rare /hpf 07/19/23 12:50 Amorphous Sediment Not Reportable 07/19/23 12:50 Urine Bacteria Trace /hpf (NONE) 07/19/23 12:50 Urine Mucus None /hpf 07/19/23 12:50 Salicylates 0.9 mg/dL (3-10) L 07/19/23 12:48 Urine Opiates Screen Negative ng/mL (Negative) 07/19/23 12:50 Acetaminophen < 5.0 ug/mL (10-30) L 07/19/23 12:48 Ur Barbiturates Screen Negative ng/mL (Negative) 07/19/23 12:50 Ur Phencyclidine Scrn Negative ng/mL (Negative) 07/19/23 12:50 Ur Amphetamines Screen Positive ng/mL (Negative) H 07/19/23 12:50 U Benzodiazepines Scrn Negative ng/mL (Negative) 07/19/23 12:50 Urine Cocaine Screen Negative ng/mL (Negative) 07/19/23 12:50 U Marijuana (THC) Screen Positive ng/mL (Negative) H 07/19/23 12:50 Ethyl Alcohol 101 mg/dL (0-10) H 07/19/23 12:48 No radiology studies performed this visit Discharge Plan Discharge Patient Disposition: Admitted As Inpatient Clinical Impression: Suicidal ideation, Depression, Alcohol abuse, Methamphetamine abuse Condition: Stable Coding Level of Care Code ED Benefits Counselor for Joshua Powell
[2023-07-19 15:46] VITALS: BP 110/73; PULSE 82; RESP 20; TEMP 36.6; O2SAT 98
[2023-07-19 16:00] VITALS: BP 110/73; PULSE 82; RESP 20; TEMP 36.6; O2SAT 98
--- NOTE | 2023-07-19 17:03 | PC.NURSE ---
ADMIT NOTE PT ADMITTED THROUGH THE EMERGENCY DEPARTMENT. PT CAME WITH A COMPLAINT OF SI AND HI. PT STATES THAT SHE HAS BEEN SUICIDAL FOR ABOUT A PREMA H. PT STATES THAT HER PLAN WAS TO OVERDOSE ON F[place]. PT CONTINUES TO ENDORSE SI HOWEVER, DOES NOT HAVE A PLAN FOR THE UNIT. PT AGREES TO COME TO STAFF IF SI WORSENS OR SHE FINDS A PLAN. PT STATES THAT SHE WAS HI TOWARDS HER ROOMMATE BUT DID NOT HAVE A PLAN TO HURT THE ROOMMATE JUST THOUGHTS. PT ENDORSES EXTENSIVE SUBSTANCE ABUSE. PT ETOH WAS 101 AND PT WAS POSITIVE FOR AMPHETAMINES AND THC. PT WAS COOPERATIVE WITH ASSESSMENT.
[2023-07-19 20:00] VITALS: BP 128/79; PULSE 75; RESP 16; TEMP 36.5; O2SAT 99
[2023-07-19] MEDS: hyDROXYzine 25 mg Capsule 50 MG PO (23:51)
[2023-07-19] MEDS: trazodone 50 mg Tablet PO (23:51)
[2023-07-19 23:59] VITALS: BP 126/78; PULSE 65; RESP 16; TEMP 36.7; O2SAT 98
[2023-07-20 04:00] VITALS: BP 122/81; PULSE 70; RESP 16; TEMP 36.6; O2SAT 97
[2023-07-20 08:00] VITALS: BP 121/76; PULSE 67; RESP 17; TEMP 36.3; O2SAT 98
[2023-07-20] MEDS: folic acid 1 mg Tablet PO (08:26)
[2023-07-20] MEDS: thiamine 100 mg Tablet PO (08:26)
[2023-07-20] MEDS: multivitamin therapeutic Tablet 1 TAB PO (08:26)
--- NOTE | 2023-07-20 11:57 | W.PM.NPUH&PS ---
Providers/Chief Complaint Admitting Physician: Philip Sood MD Primary Care Provider: Talita Leon MD Chief Complaint: SI HPI NPU History of Present Illness Tamie Mathew is a 48 year old female who presented to the emergency department with the following report: Chief Complaint: Psychiatric Symptoms Stated Complaint: SI Time Seen by Provider: 07/19/23 12:37 History of Present Illness: Patient with history of bipolar disorder, borderline personality disorder and tobacco dependence and methamphetamine abuse who presents to the emergency room with suicidal thoughts. She says she has been drinking and doing some methamphetamine recently and today she started having suicidal thoughts. She said she would take a fentanyl overdose if she could find some. She is requesting admission to the psychiatric unit. She was admitted to the neuropsychiatric unit for definitive treatment of those issues. She presents today known to the neuropsychiatric unit from past hospitalizations including 1 in September 2019 as well as May 2019. An excerpt of her last discharge summary is included below for context. She presented today with the following report: Chief complaint Patient reports feeling suicidal, struggling with mood, anxiety, and depression. Reports a recent freak out that led to the consultation. History of the present complaint The patient reported a history of homelessness, with the last stable housing situation being a few months ago, facilitated by a friend. The patient disclosed a relapse into substance use, specifically alcohol, which seemed to disrupt this stable living situation. The patient has not been attending outpatient treatment and has had inconsistent medication use due to theft. The patient reported feeling suicidal and experiencing heightened anxiety and depression. The patient expressed a desire to enter rehab and believes that resuming medication and sobriety will improve their situation. The patient has been taking Wellbutrin intermittently, but more regularly in the last few months when they were off the streets. The patient's mood at the time of the consultation was described as pretty depressed , but they denied any current thoughts of self-harm, harm to others, paranoia, or hallucinations. The patient reported sleeping all day. The patient has been in inpatient treatment a couple of times since 2019. Mental health history Patient has a history of addiction, specifically alcohol. Has been in and out of inpatient treatment at [facility] in [place]. Has been on Wellbutrin, which seemed to help with symptoms, but medication use has been inconsistent due to theft. Social history Patient has been homeless for a significant period, with brief periods of stable housing. Recently, patient was staying with a friend, which provided some stability, but started using again. Per her 09/10/2019 [facility] inpatient psychiatric discharge summary: Discharge Diagnosis (1) Suicidal ideation: Status: Resolved (2) Borderline personality disorder: Status: Chronic (3) Adjustment disorder with mixed disturbance of emotions and conduct: Status: Resolved Reason for Visit Reason for Visit: ASKING TO GO TO NPU Brief History: History of present illness:Tamie Mathew is a 44 year old female who was admitted to the adult psychiatric unit with the following chief complaint:HPI Patient is a 44-year-old female with a history of bipolar here for complaints of suicidal ideations and feelings of darrel. Patient tells me yesterday she got into an argument with her mother who has guardianship of her two children and is fearful that the mother will kick her out and she will not be able to see her kids. She tells me she has not slept over the past 2 days and feels extremely anxious and irritable. Patient has no specific plan for suicide. She denies homicidal ideations. She denies visual or auditory hallucinations. She denies drug or alcohol use. Discharge Diagnosis (1) Bipolar 1 disorder, mixed, moderate: Status: Inactive Problem details: This is a longstanding diagnosis and her current crisis is the product of noncompliance with medications which she asserts are known to have stabilized her. (2) Suicidal ideation: Status: Resolved Discharge medications: citalopram 40 mg (2 x 20 mg) PO DAILY quetiapine 100 mg PO BEDTIME Mental health history: This is her second hospitalization this year. Her hospitalization on 05/14/2019 give these details.HPI Narrative: Patient is a 44-year-old female with a history of bipolar here for complaints of suicidal ideations and feelings of darrel. Patient tells me yesterday she got into an argument with her mother who has guardianship of her two children and is fearful that the mother will kick her out and she will not be able to see her kids. She tells me she has not slept over the past 2 days and feels extremely anxious and irritable. Patient has no specific plan for suicide. She denies homicidal ideations. She denies visual or auditory hallucinations. She denies drug or alcohol use. According to her subsequent outpatient assessment on 06/19/2019: Suicide Ideation for the Past Month Have you wished you were or wished you could go to sleep and not wake up?: Yes Have you actually had any thoughts of killing yourself? (e.g., ?I?ve thought about killing myself?): Yes If YES to 2, ask questions 3, 4, 5, and 6. If NO to 2, go directly to question 6 Have you been thinking about how you might do this? ?I thought about taking an overdose but I never made a specific plan as to when where or how I would actually do it and I would never go through with it : Yes ( I have in the past ) I thought about taking an overdose but I never made a specific plan as to when, where, or how I would actually do it....and I would never go through with it Have you had these thoughts and had some intention of acting on them? As opposed to ?I have the thoughts but I definitely will not do anything about them.?: Yes (overdosed recently) As opposed to I have the thoughts but I definitely will not do anything about them. Have you started to work out or worked out the details of how to kill yourself and do you intend to carry out this plan?: Yes Have you done anything, started to do anything, or prepared to do anything to end your life?: Yes How long ago did you do any of these?: Within the last three months? - Last Reconciled 06/19/19 by Lupe Mueller Social history: Legal history: She has 4 arrests in the past 6 years, all for theft. Today she states that it is her understanding that she will be likely remanded for [facility] time at her next court date. Past medical history: Please see emergency room notes. Hospital Course Patient was admitted to the adult psychiatridc unit and entered into the full array of individual and group psychotherapies. She also recieved an assessment and support from the social work service. She had 24 hourt supervision and support from trained psychiatric nursing personnel. She utilized these services to address her acute situation and came to an acceptable resolution. She was advised to remain in the hospital for further assessment and treatment. She demanded discharge against medical advice. She was not deemed to be an imminent danger to self orothers and was permitted to sign out against medical advice. Meds NPU Home Medications Medication Instructions Recorded Confirmed Last Taken Type bupropion HCl 300 mg 24 hr tablet, 300 mg PO DAILY 07/19/23 07/19/23 Unknown History extended release citalopram 40 mg tablet 40 mg PO DAILY 07/19/23 07/19/23 Unknown History flaxseed oil 1,000 mg capsule 1,000 mg PO DAILY 07/19/23 07/19/23 Unknown History multivitamin 1 tab PO DAILY 07/19/23 07/19/23 Unknown History quetiapine 100 mg tablet 100 mg PO BEDTIME 07/19/23 07/19/23 Unknown History thiamine HCl (vitamin B1) 50 mg 50 mg PO DAILY 07/19/23 07/19/23 Unknown History tablet (Vitamin B-1) Allergies Allergy/AdvReac Type Severity Reaction Status Date / Time lithium AdvReac Severe Unknown Verified 09/09/19 09:37 [facility] NPU PFSH: Medical History (Updated 07/20/23 @ 14:58 by Yohan Potts MD) History of concussion Borderline personality disorder Bipolar 1 disorder, mixed, moderate Bipolar disorder Family History Denies family history of Dementia Psychiatric illness Suicide Social History Smoking and tobacco/nicotine status: unknown if used tobacco/nicotine Current gender identity: Female Mental Status Exam MSE Comments: This is a slender/underweight white female in hospital scrubs with poor grooming and eye contact. No abnormal movements except for psychomotor retardation. Cooperative with exam in moderate distress. Speech was decreased rate and volume. Mood described as depressed, affect congruent and slightly subdued. Thought process organized. Thought content: Patient denied any suicidal or homicidal ideation at this moment, there were no delusions reported or noted, she denies any auditory or visual hallucinations. Patient reports feeling suicidal, anxious, and depressed. No current thoughts of self-harm or harm to others. No signs of paranoia or hallucinations. Reports feeling pretty depressed today. Attention and concentration are intact and memory is somewhat reliable but none were formally tested. She is alert and oriented x3. Insight and judgment are limited. Impulse control is impaired. Plan Restart Wellbutrin medication. Assist patient in finding stable housing with the help of the social work team. Encourage patient to enter rehab and resume sobriety. Monitor patient's mood and suicidal ideation closely. ICD-10 codes (2) - Suicidal ideations [R45.851] - Other specified problems related to primary support group [Z63.8] Vitals/I&O/Wt Last Vital Signs Temp 97.4 F L 07/20/23 08:00 Pulse 67 07/20/23 08:00 Resp 17 07/20/23 08:00 BP 121/76 07/20/23 08:00 Pulse Ox 98 07/20/23 08:00 O2 Del Method Room Air 07/20/23 08:00 Weight last 48 hrs Weight 61.235 kg Data NPU 07/19/23 12:48 07/19/23 12:48 A&P Assessment and plan (1) Borderline personality disorder: (2) Adjustment disorder with mixed disturbance of emotions and conduct: (3) Suicidal ideation: (4) Depression: (5) Methamphetamine use disorder, severe: (6) Alcohol use disorder, severe, dependence: (7) Opioid use disorder, severe, dependence: Plan This is a 48-year-old white female with history of addiction and mental health challenges who presented reporting she is struggling with homelessness, addiction, and mental health issues including depression and anxiety. Recent return to substance use has exacerbated these issues. 1. Continue current medication. 2. Encourage individual, group and milieu therapy. 3. Continue to 15-minute checks for safety. 4. Encourage sober living treatment after discharge at the highest level care to which she is willing to commit. Involuntary Hold Information 96 Hour Hold: 96 Hour Involuntary Admission: No Attestations NPU Medical Necessity Statement*: Inpatient hospitalization is medically necessary and the clinically appropriate intervention at this time. We will monitor medications and make changes as indicated. Likely length of stay 3-5 days. Time Spent in Patient Care: Greater than 35 minutes (>than 50% of time spent in counselling and/or direct pt care on unit). Coding Level of Care Code Acute Code for g Fwd Diagnoses Borderline personality disorder F60.3 Adjustment disorder with mixed disturbance of emotions and conduct F43.25 Suicidal ideation R45.851 Depression F32.A Methamphetamine use disorder, severe F15.20 Alcohol use disorder, severe, dependence F10.20 Opioid use disorder, severe, dependence F11.20
[2023-07-20 12:00] VITALS: BP 111/70; PULSE 80; RESP 16; TEMP 36.6; O2SAT 98
[2023-07-20 16:00] VITALS: BP 119/72; PULSE 69; RESP 17; TEMP 36.8; O2SAT 99
--- NOTE | 2023-07-20 18:23 | PC.NURSE ---
NEW ORDERS RECEIVED FROM DR. HERNANDES TO RESTART CELEXA 40 MG PO DAILY AND WELBUTRIN XL 300MG PO DAILY TO START IN THE AM. PT EDUCATED AND VERBALIZED UNDERSTANDING,
[2023-07-20 20:00] VITALS: BP 99/67; PULSE 77; RESP 16; TEMP 36.6; O2SAT 99
[2023-07-20] MEDS: trazodone 50 mg Tablet PO (21:58)
[2023-07-20] MEDS: hyDROXYzine 25 mg Capsule 50 MG PO (21:58)
[2023-07-21] VITALS: BP 119/71; PULSE 61; RESP 16; O2SAT 100
[2023-07-21 04:00] VITALS: BP 107/64; PULSE 62; RESP 16; O2SAT 99
--- NOTE | 2023-07-21 07:19 | P.NPUPN_ITS ---
Subjective NPU 2 Subjective: Patient presented today reporting that she is feeling really no different. She reports she took her medication and feels about the same. We had a long conversation about expectations and that medications do not create solutions immediately. We discussed her giving it time given the likely limited adherence that she was having outpatient. We also discussed the impact of active addiction. She reports that she is feeling growing interest in going to rehab and we discussed working with the social work team on Sunday to move in that direction. She denied any side effects of the medication. Mental Status Exam 2 MSE Comments: This is a slender/underweight white female in hospital scrubs with poor grooming and eye contact. No abnormal movements except for psychomotor retardation. Cooperative with exam in moderate distress. Speech was decreased rate and volume. Mood described as depressed, not feeling any better, affect congruent and slightly subdued. Thought process organized. Thought content: Patient denied any suicidal or homicidal ideation at this moment, there were no delusions reported or noted, she denies any auditory or visual hallucinations. Patient reports feeling suicidal, anxious, and depressed. No current thoughts of self-harm or harm to others. No signs of paranoia or hallucinations. Reports feeling pretty depressed today. Attention and concentration are intact and memory is somewhat reliable but none were formally tested. She is alert and oriented x3. Insight and judgment are limited. Impulse control is impaired. Vitals/I&O/Wt Last Vital Signs Temp 97.9 F 07/20/23 20:00 Pulse 62 07/21/23 04:00 Resp 16 07/21/23 04:00 BP 107/64 07/21/23 04:00 Pulse Ox 99 07/21/23 04:00 O2 Del Method Room Air 07/20/23 16:00 Weight last 48 hrs Weight 61.235 kg Data NPU 07/19/23 12:48 07/19/23 12:48 A&P Assessment and plan (1) Borderline personality disorder: (2) Adjustment disorder with mixed disturbance of emotions and conduct: (3) Suicidal ideation: (4) Depression: (5) Methamphetamine use disorder, severe: (6) Alcohol use disorder, severe, dependence: (7) Opioid use disorder, severe, dependence: Plan This is a 48-year-old white female with history of addiction and mental health challenges who presented reporting she is struggling with homelessness, addiction, and mental health issues including depression and anxiety. Recent return to substance use has exacerbated these issues. 1. Continue current medication. 2. Encourage individual, group and milieu therapy. 3. Continue to 15-minute checks for safety. 4. Encourage sober living treatment after discharge at the highest level care to which she is willing to commit. Involuntary Hold Information 2 96 Hour Hold: 96 Hour Involuntary Admission: No Attestations NPU 2 Medical Necessity Statement*: Inpatient hospitalization is medically necessary and the clinically appropriate intervention at this time. We will monitor medications and make changes as indicated. Likely length of stay 3-5 days. Time Spent in Patient Care: Greater than 35 minutes (>than 50% of time spent in counselling and/or direct pt care on unit) . Coding Level of Care Code Acute Code for [facility] Fwd Diagnoses Borderline personality disorder F60.3 Adjustment disorder with mixed disturbance of emotions and conduct F43.25 Suicidal ideation R45.851 Depression F32.A Methamphetamine use disorder, severe F15.20 Alcohol use disorder, severe, dependence F10.20 Opioid use disorder, severe, dependence F11.20
[2023-07-21 08:00] VITALS: BP 109/71; PULSE 84; RESP 16; O2SAT 99
[2023-07-21] MEDS: multivitamin therapeutic Tablet 1 TAB PO (09:25)
[2023-07-21] MEDS: citalopram 20 mg Tablet 40 MG PO (09:25)
[2023-07-21] MEDS: folic acid 1 mg Tablet PO (09:25)
[2023-07-21] MEDS: thiamine 100 mg Tablet PO (09:25)
[2023-07-21] MEDS: buPROPion XL (24 HR) 300 mg Tablet PO (09:26)
[2023-07-21 12:00] VITALS: BP 113/72; PULSE 78; RESP 16; O2SAT 98
--- NOTE | 2023-07-21 17:33 | PC.NURSE ---
Patient taken off of CIWA at [address] Potts order.
[2023-07-21 19:53] VITALS: BP 110/58; PULSE 84; RESP 16; TEMP 36.9; O2SAT 99
[2023-07-21] MEDS: trazodone 50 mg Tablet PO (20:13)
[2023-07-21] MEDS: hyDROXYzine 25 mg Capsule 50 MG PO (20:13)
[2023-07-21 22:09] VITALS: RESP 16
[2023-07-22 06:00] VITALS: BP 111/73; PULSE 71; RESP 16; TEMP 36.7; O2SAT 98
[2023-07-22] MEDS: multivitamin therapeutic Tablet 1 TAB PO (08:36)
[2023-07-22] MEDS: thiamine 100 mg Tablet PO (08:37)
[2023-07-22] MEDS: buPROPion XL (24 HR) 300 mg Tablet PO (08:37)
[2023-07-22] MEDS: citalopram 20 mg Tablet 40 MG PO (08:37)
[2023-07-22] MEDS: folic acid 1 mg Tablet PO (08:37)
[2023-07-22 13:25] VITALS: BP 104/63; PULSE 81; RESP 16; TEMP 36.8; O2SAT 98
[2023-07-22] MEDS: nicotine 2 mg Gum BUCCAL (13:51)
--- NOTE | 2023-07-22 14:18 | P.NPUPN_ITS ---
Subjective NPU 2 Subjective: Patient presented today reporting that she is feeling better. She was less isolative per staff reports and direct observation. She reported finally coming out of her somnolent slump and feeling more optimistic. We did discuss the risks, vet alternatives of starting Seroquel 50 mg p.o. nightly. She did endorse a continued interest in considering sober living treatment and we discussed the social work team being back tomorrow to move that agenda forward. She denied any side effects to medications. Mental Status Exam 2 MSE Comments: * This is a slender/underweight white female in hospital scrubs with improving grooming and eye contact. No abnormal movements except for mild and resolving psychomotor retardation. Cooperative with exam in moderate distress. Speech was decreased rate and volume. Mood described as starting to feel better, affect congruent and brighter. Thought process organized. Thought content: Patient denied any suicidal or homicidal ideation at this moment, there were no delusions reported or noted, she denies any auditory or visual hallucinations. Attention and concentration are intact and memory is more reliable but none were formally tested. She is alert and oriented x3. Insight and judgment are improving. Impulse control is limited but improving. Vitals/I&O/Wt Last Vital Signs Temp 98.2 F 07/22/23 13:25 Pulse 81 07/22/23 13:25 Resp 16 07/22/23 13:25 BP 104/63 07/22/23 13:25 Pulse Ox 98 07/22/23 13:25 O2 Del Method Room Air 07/22/23 06:00 Weight last 48 hrs Weight 62.868 kg Data NPU 07/19/23 12:48 07/19/23 12:48 A&P Assessment and plan (1) Borderline personality disorder: (2) Adjustment disorder with mixed disturbance of emotions and conduct: (3) Suicidal ideation: (4) Depression: (5) Methamphetamine use disorder, severe: (6) Alcohol use disorder, severe, dependence: (7) Opioid use disorder, severe, dependence: Plan This is a 48-year-old white female with history of addiction and mental health challenges who presented reporting she is struggling with homelessness, addiction, and mental health issues including depression and anxiety. Recent return to substance use has exacerbated these issues. 1. Continue current medication. Add Seroquel 50 mg p.o. nightly. 2. Encourage individual, group and milieu therapy. 3. Continue to 15-minute checks for safety. 4. Encourage sober living treatment after discharge at the highest level care to which she is willing to commit. Involuntary Hold Information 2 96 Hour Hold: 96 Hour Involuntary Admission: No Attestations NPU 2 Medical Necessity Statement*: Inpatient hospitalization is medically necessary and the clinically appropriate intervention at this time. We will monitor medications and make changes as indicated. Likely length of stay 2-4 days. Coding Level of Care Code Acute Code for [facility] Fwd Diagnoses Borderline personality disorder F60.3 Adjustment disorder with mixed disturbance of emotions and conduct F43.25 Suicidal ideation R45.851 Depression F32.A Methamphetamine use disorder, severe F15.20 Alcohol use disorder, severe, dependence F10.20 Opioid use disorder, severe, dependence F11.20
[2023-07-22] MEDS: hyDROXYzine 25 mg Capsule 50 MG PO (15:29)
[2023-07-22] MEDS: OLANZapine 5 mg ODT PO (19:13)
[2023-07-22 20:04] VITALS: BP 104/63; PULSE 78; RESP 16; TEMP 36.7; O2SAT 96
[2023-07-23 06:00] VITALS: BP 120/75; PULSE 62; RESP 16; TEMP 36.6; O2SAT 99
[2023-07-23] MEDS: nicotine 2 mg Gum BUCCAL (08:48)
[2023-07-23] MEDS: multivitamin therapeutic Tablet 1 TAB PO (08:48)
[2023-07-23] MEDS: buPROPion XL (24 HR) 300 mg Tablet PO (08:48)
[2023-07-23] MEDS: citalopram 20 mg Tablet 40 MG PO (08:49)
[2023-07-23] MEDS: thiamine 100 mg Tablet PO (08:49)
[2023-07-23] MEDS: folic acid 1 mg Tablet PO (08:49)
[2023-07-23] MEDS: hyDROXYzine 25 mg Capsule 50 MG PO (08:51)
[2023-07-23] MEDS: OLANZapine 5 mg ODT PO (12:32)
[2023-07-23 14:00] VITALS: BP 101/62; PULSE 74; RESP 18; TEMP 36.7; O2SAT 98
--- NOTE | 2023-07-23 18:02 | P.NPUPN_ITS ---
Subjective NPU 2 Subjective: Patient presented today reporting that she is feeling optimistic still but had a rough day. Staff report of some struggles with low frustration tolerance and this was witnessed on direct observation. She reports continued commitment to her recovery and finding a sober living program that we will accept her. She has significant concerns about any interim. Between discharge and going to rehab. She denied any side effects to the medication. Mental Status Exam 2 MSE Comments: * This is a slender/underweight white female in hospital scrubs with improving grooming and eye contact. No abnormal movements except for mild and resolving psychomotor retardation. Cooperative with exam in moderate distress. Speech was decreased rate and volume. Mood described as still feeling better, but today was a bit of a setback, affect congruent. Thought process organized. Thought content: Patient denied any suicidal or homicidal ideation at this moment, there were no delusions reported or noted, she denies any auditory or visual hallucinations. Attention and concentration are intact and memory is more reliable but none were formally tested. She is alert and oriented x3. Insight and judgment are improving. Impulse control is limited but improving. Vitals/I&O/Wt Last Vital Signs Temp 98.0 F 07/23/23 14:00 Pulse 74 07/23/23 14:00 Resp 18 07/23/23 14:00 BP 101/62 07/23/23 14:00 Pulse Ox 98 07/23/23 14:00 O2 Del Method Room Air 07/23/23 14:00 Weight last 48 hrs Weight 62.868 kg Data NPU 07/19/23 12:48 07/19/23 12:48 A&P Assessment and plan (1) Borderline personality disorder: (2) Adjustment disorder with mixed disturbance of emotions and conduct: (3) Suicidal ideation: (4) Depression: (5) Methamphetamine use disorder, severe: (6) Alcohol use disorder, severe, dependence: (7) Opioid use disorder, severe, dependence: Plan This is a 48-year-old white female with history of addiction and mental health challenges who presented reporting she is struggling with homelessness, addiction, and mental health issues including depression and anxiety. Recent return to substance use has exacerbated these issues. 1. Continue current medication. Added Seroquel 50 mg p.o. nightly. 2. Encourage individual, group and milieu therapy. 3. Continue to 15-minute checks for safety. 4. Encourage sober living treatment after discharge at the highest level care to which she is willing to commit. Involuntary Hold Information 2 96 Hour Hold: 96 Hour Involuntary Admission: No Attestations NPU 2 Medical Necessity Statement*: Inpatient hospitalization is medically necessary and the clinically appropriate intervention at this time. We will monitor medications and make changes as indicated. Likely length of stay 2-3 days. Coding Level of Care Code Acute Code for [facility] Fwd Diagnoses Borderline personality disorder F60.3 Adjustment disorder with mixed disturbance of emotions and conduct F43.25 Suicidal ideation R45.851 Depression F32.A Methamphetamine use disorder, severe F15.20 Alcohol use disorder, severe, dependence F10.20 Opioid use disorder, severe, dependence F11.20
[2023-07-23 20:03] VITALS: BP 103/65; PULSE 76; RESP 15; TEMP 36.8; O2SAT 100
[2023-07-23] MEDS: quetiapine 25 mg Tablet 50 MG PO (21:35)
[2023-07-24 06:00] VITALS: BP 112/67; PULSE 73; RESP 17; TEMP 36.8; O2SAT 96
[2023-07-24] MEDS: nicotine 2 mg Gum BUCCAL ×2 (08:38→15:27)
[2023-07-24] MEDS: citalopram 20 mg Tablet 40 MG PO (08:38)
[2023-07-24] MEDS: thiamine 100 mg Tablet PO (08:38)
[2023-07-24] MEDS: multivitamin therapeutic Tablet 1 TAB PO (08:38)
[2023-07-24] MEDS: buPROPion XL (24 HR) 300 mg Tablet PO (08:38)
[2023-07-24] MEDS: folic acid 1 mg Tablet PO (08:38)
[2023-07-24] MEDS: hyDROXYzine 25 mg Capsule 50 MG PO ×2 (08:40→15:27)
[2023-07-24 14:00] VITALS: BP 111/74; PULSE 79; RESP 18; TEMP 37.2; O2SAT 98
[2023-07-24] MEDS: OLANZapine 5 mg ODT PO ×2 (14:22→23:48)
--- NOTE | 2023-07-24 18:03 | P.NPUPN_ITS ---
Subjective NPU 2 Subjective: Patient presented today reporting that she is feeling better than yesterday. She reports working with the social work team on multiple options for sober living treatment. She talked about discharge and the possibility of going to some events related to her grandchildren. We had a long discussion about success rates when going directly to rehab versus going home first. We discussed concerns about her not going directly to the rehab and she reports her mother was also expressing the same concern. She has an interview with one of the places tomorrow and we agreed that after that we can start looking at what a safe and sober discharge with presentation to the rehab with continued sobriety would look like. She denied any side effects to medications. Mental Status Exam 2 MSE Comments: * This is a slender/underweight white female in hospital scrubs with improving grooming and eye contact. No abnormal movements except for mild and resolving psychomotor retardation. Cooperative with exam in distress. Speech was decreased rate and volume. Mood described as still feeling better, affect congruent. Thought process organized. Thought content: Patient denied any suicidal or homicidal ideation at this moment, there were no delusions reported or noted, she denies any auditory or visual hallucinations. Attention and concentration are intact and memory is more reliable but none were formally tested. She is alert and oriented x3. Insight and judgment are improving. Impulse control is limited but improving. Vitals/I&O/Wt Last Vital Signs Temp 99.0 F 07/24/23 14:00 Pulse 79 07/24/23 14:00 Resp 18 07/24/23 14:00 BP 111/74 07/24/23 14:00 Pulse Ox 98 07/24/23 14:00 O2 Del Method Room Air 07/24/23 14:00 Data NPU 07/19/23 12:48 07/19/23 12:48 A&P Assessment and plan (1) Borderline personality disorder: (2) Adjustment disorder with mixed disturbance of emotions and conduct: (3) Suicidal ideation: (4) Depression: (5) Methamphetamine use disorder, severe: (6) Alcohol use disorder, severe, dependence: (7) Opioid use disorder, severe, dependence: Plan This is a 48-year-old white female with history of addiction and mental health challenges who presented reporting she is struggling with homelessness, addiction, and mental health issues including depression and anxiety. Recent return to substance use has exacerbated these issues. 1. Continue current medication. Added Seroquel 50 mg p.o. nightly. 2. Encourage individual, group and milieu therapy. 3. Continue to 15-minute checks for safety. 4. Encourage sober living treatment after discharge at the highest level care to which she is willing to commit. Involuntary Hold Information 2 96 Hour Hold: 96 Hour Involuntary Admission: No Attestations NPU 2 Medical Necessity Statement*: Inpatient hospitalization is medically necessary and the clinically appropriate intervention at this time. We will monitor medications and make changes as indicated. Likely length of stay 1-3 days. Coding Level of Care Code Acute Code for [facility] Fwd Diagnoses Borderline personality disorder F60.3 Adjustment disorder with mixed disturbance of emotions and conduct F43.25 Suicidal ideation R45.851 Depression F32.A Methamphetamine use disorder, severe F15.20 Alcohol use disorder, severe, dependence F10.20 Opioid use disorder, severe, dependence F11.20
[2023-07-24 19:41] VITALS: BP 110/65; PULSE 73; RESP 20; TEMP 36.7; O2SAT 98
[2023-07-24] MEDS: quetiapine 25 mg Tablet 50 MG PO (21:43)
[2023-07-24] MEDS: trazodone 50 mg Tablet PO (21:43)
[2023-07-25 06:00] VITALS: BP 96/48; PULSE 69; RESP 16; TEMP 36.4; O2SAT 100
[2023-07-25] MEDS: nicotine 2 mg Gum BUCCAL ×3 (07:50→16:33)
[2023-07-25] MEDS: folic acid 1 mg Tablet PO (07:50)
[2023-07-25] MEDS: buPROPion XL (24 HR) 300 mg Tablet PO (07:50)
[2023-07-25] MEDS: multivitamin therapeutic Tablet 1 TAB PO (07:50)
[2023-07-25] MEDS: citalopram 20 mg Tablet 40 MG PO (07:50)
[2023-07-25] MEDS: thiamine 100 mg Tablet PO (07:50)
--- NOTE | 2023-07-25 07:57 | PC.NURSE ---
During morning assessment, patient stated that she is doing really good. Patient denies SI, HI, AVH, depression, and anxiety. Patient friendly and cooperative during assessment.
[2023-07-25] MEDS: OLANZapine 5 mg ODT PO (12:28)
--- NOTE | 2023-07-25 12:28 | PC.NURSE ---
Patient reports anxiety, appears anxious and tremulous. Administered zyprexa 5mg ODT to patient. Will continue to monitor
--- NOTE | 2023-07-25 12:45 | P.NPUPN_ITS ---
Subjective NPU 2 Subjective: Patient presented today reporting that she is feeling better. She was excited about the fact that her interview went well and she was excepted for inpatient rehab at [facility] on Sunday. We discussed the plan to support that bed date. She denied any side effects of the medications and reports that she is looking forward to and committed to beginning her recovery inpatient on Sunday. Mental Status Exam 2 MSE Comments: * This is a slender/underweight white female in hospital scrubs with improving grooming and eye contact. No abnormal movements except for mild and resolving psychomotor retardation. Cooperative with exam in distress. Speech was decreased rate and volume. Mood described as still feeling better, affect congruent. Thought process organized. Thought content: Patient denied any suicidal or homicidal ideation at this moment, there were no delusions reported or noted, she denies any auditory or visual hallucinations. Attention and concentration are intact and memory is more reliable but none were formally tested. She is alert and oriented x3. Insight and judgment are improving. Impulse control is limited but improving. Vitals/I&O/Wt Last Vital Signs Temp 97.5 F L 07/25/23 06:00 Pulse 69 07/25/23 06:00 Resp 16 07/25/23 06:00 BP 96/48 07/25/23 06:00 Pulse Ox 100 07/25/23 06:00 O2 Del Method Room Air 07/25/23 06:00 Data NPU 07/19/23 12:48 07/19/23 12:48 A&P Assessment and plan (1) Borderline personality disorder: (2) Adjustment disorder with mixed disturbance of emotions and conduct: (3) Suicidal ideation: (4) Depression: (5) Methamphetamine use disorder, severe: (6) Alcohol use disorder, severe, dependence: (7) Opioid use disorder, severe, dependence: Plan This is a 48-year-old white female with history of addiction and mental health challenges who presented reporting she is struggling with homelessness, addiction, and mental health issues including depression and anxiety. Recent return to substance use has exacerbated these issues. 1. Continue current medication. Added Seroquel 50 mg p.o. nightly. 2. Encourage individual, group and milieu therapy. 3. Continue to 15-minute checks for safety. 4. Encourage sober living treatment after discharge at the highest level care to which she is willing to commit. Plan for discharge to [facility] on Sunday. Involuntary Hold Information 2 96 Hour Hold: 96 Hour Involuntary Admission: No Attestations NPU 2 Medical Necessity Statement*: Inpatient hospitalization is medically necessary and the clinically appropriate intervention at this time. We will monitor medications and make changes as indicated. Likely length of stay 2 days. Coding Level of Care Code Acute Code for g Fwd Diagnoses Borderline personality disorder F60.3 Adjustment disorder with mixed disturbance of emotions and conduct F43.25 Suicidal ideation R45.851 Depression F32.A Methamphetamine use disorder, severe F15.20 Alcohol use disorder, severe, dependence F10.20 Opioid use disorder, severe, dependence F11.20
[2023-07-25 14:00] VITALS: BP 102/67; PULSE 77; RESP 16; TEMP 36.8; O2SAT 96
[2023-07-25] MEDS: neomycin-poly-bacitracin oint 28 gm 1 APPLIC TOPICAL (14:47)
[2023-07-25] MEDS: hyDROXYzine 25 mg Capsule 50 MG PO ×2 (14:47→21:25)
[2023-07-25 20:57] VITALS: BP 102/65; PULSE 71; RESP 17; TEMP 36.4; O2SAT 98
[2023-07-25] MEDS: quetiapine 25 mg Tablet 50 MG PO (21:24)
[2023-07-25] MEDS: trazodone 50 mg Tablet PO (21:25)
[2023-07-26 06:00] VITALS: BP 102/61; PULSE 62; RESP 16; TEMP 36.6; O2SAT 100
[2023-07-26] MEDS: thiamine 100 mg Tablet PO (08:34)
[2023-07-26] MEDS: folic acid 1 mg Tablet PO (08:34)
[2023-07-26] MEDS: citalopram 20 mg Tablet 40 MG PO (08:34)
[2023-07-26] MEDS: multivitamin therapeutic Tablet 1 TAB PO (08:34)
[2023-07-26] MEDS: buPROPion XL (24 HR) 300 mg Tablet PO (08:35)
[2023-07-26] MEDS: nicotine 2 mg Gum BUCCAL (08:39)
--- NOTE | 2023-07-26 11:58 | P.NPUPN_ITS ---
Subjective NPU 2 Subjective: Patient presented today reporting that she is feeling excited about discharge tomorrow. She was inquiring about how she was going to get there as her mother is Dr. Hatch give her a ride and I assured her that the social work team is working on transportation and either we will transport her there or they will pick her up. She reports that she is feeling good from the standpoint of the medications and denied any side effects. She reports that she is committed to her recovery and we discussed the plan for discharge in the morning. Mental Status Exam 2 MSE Comments: This is a slender/underweight white female in hospital scrubs with improving grooming and eye contact. No abnormal movements except for mild psychomotor agitation. Cooperative with exam in no acute distress. Speech was slightly increased rate and normal volume. Mood described as feeling excited/manic, affect congruent and energetic. Thought process organized. Thought content: Patient denied any suicidal or homicidal ideation at this moment, there were no delusions reported or noted, she denies any auditory or visual hallucinations. Attention and concentration are intact and memory is more reliable but none were formally tested. She is alert and oriented x3. Insight and judgment are improving. Impulse control is limited but improving. Vitals/I&O/Wt Last Vital Signs Temp 97.8 F 07/26/23 06:00 Pulse 62 07/26/23 06:00 Resp 16 07/26/23 06:00 BP 102/61 07/26/23 06:00 Pulse Ox 100 07/26/23 06:00 O2 Del Method Room Air 07/25/23 14:00 Data NPU 07/19/23 12:48 07/19/23 12:48 A&P Assessment and plan (1) Borderline personality disorder: (2) Adjustment disorder with mixed disturbance of emotions and conduct: (3) Suicidal ideation: (4) Depression: (5) Methamphetamine use disorder, severe: (6) Alcohol use disorder, severe, dependence: (7) Opioid use disorder, severe, dependence: Plan This is a 48-year-old white female with history of addiction and mental health challenges who presented reporting she is struggling with homelessness, addiction, and mental health issues including depression and anxiety. Recent return to substance use has exacerbated these issues. 1. Continue current medication. Added Seroquel 50 mg p.o. nightly. 2. Encourage individual, group and milieu therapy. 3. Continue to 15-minute checks for safety. 4. Encourage sober living treatment after discharge at the highest level care to which she is willing to commit. Plan for discharge to [facility] tomorrow 07/27/2023. Involuntary Hold Information 2 96 Hour Hold: 96 Hour Involuntary Admission: No Attestations NPU 2 Medical Necessity Statement*: Inpatient hospitalization is medically necessary and the clinically appropriate intervention at this time. We will monitor medications and make changes as indicated. Likely length of stay 1 day. Coding Level of Care Code Acute Code for g Fwd Diagnoses Borderline personality disorder F60.3 Adjustment disorder with mixed disturbance of emotions and conduct F43.25 Suicidal ideation R45.851 Depression F32.A Methamphetamine use disorder, severe F15.20 Alcohol use disorder, severe, dependence F10.20 Opioid use disorder, severe, dependence F11.20
[2023-07-26] MEDS: OLANZapine 5 mg ODT PO (12:46)
[2023-07-26 13:21] VITALS: BP 96/56; PULSE 96; RESP 17; TEMP 36.6; O2SAT 100
[2023-07-26 19:46] VITALS: BP 100/62; PULSE 80; RESP 18; TEMP 36.8; O2SAT 98
[2023-07-26] MEDS: quetiapine 25 mg Tablet 50 MG PO (21:04)
[2023-07-26] MEDS: trazodone 50 mg Tablet PO (21:04)
--- NOTE | 2023-07-26 22:35 | DCPLANNER ---
Pt. family brought in items for pt. to take upon discharge. per nurse senior insight manager, theses items are to remain in visitors waiting area in view of camera due to pts discharge following morning.
[2023-07-27 06:00] VITALS: BP 96/62; PULSE 99; RESP 18; TEMP 37.1; O2SAT 97
--- NOTE | 2023-07-27 07:12 | W.PM.NPUDCS ---
Diagnoses at Discharge Discharge Diagnosis (1) Borderline personality disorder: Status: Chronic (2) Adjustment disorder with mixed disturbance of emotions and conduct: Status: Resolved (3) Suicidal ideation: Status: Acute (4) Depression: Status: Acute (5) Methamphetamine use disorder, severe: Status: Acute (6) Alcohol use disorder, severe, dependence: Status: Acute (7) Opioid use disorder, severe, dependence: Status: Acute Reason for Visit Reason for Visit: SI Involuntary Hold Information 96 Hour Hold: 96 Hour Involuntary Admission: No Mental Status Exam MSE Comments: This is a slender/underweight white female in hospital scrubs with improving grooming and eye contact. No abnormal movements except for mild psychomotor agitation. Cooperative with exam in no acute distress. Speech was slightly increased rate and normal volume. Mood described as feeling excited/manic, affect congruent and energetic. Thought process organized. Thought content: Patient denied any suicidal or homicidal ideation at this moment, there were no delusions reported or noted, she denies any auditory or visual hallucinations. Attention and concentration are intact and memory is more reliable but none were formally tested. She is alert and oriented x3. Insight and judgment are improving. Impulse control is limited but improving. Discharge Data Studies Completed and Pending: Laboratory Results WBC 4.55 10^3/uL (3.2 9-11.43) 07/19/23 12:48 RBC 4.09 10^6/uL (3.8 5-5.65) 07/19/23 12:48 Hgb 12.40 g/dL (11.27 -16.99) 07/19/23 12:48 Hct 37.9 % (36-47) 07/19/23 12:48 MCV 92.7 fl (85-98) 07/19/23 12:48 MCH 30.3 pg (27-33) 07/19/23 12:48 MCHC 32.7 g/dL (30-55) 07/19/23 12:48 RDW 14.4 % (12.1-15.1 ) 07/19/23 12:48 Plt Count 334 10^3/cmm (157 -399) 07/19/23 12:48 MPV 9.7 fL (7.4-10.4) 07/19/23 12:48 Neut % (Auto) 52.3 % 07/19/23 12:48 Lymph % (Auto) 38.5 % 07/19/23 12:48 [place] % (Auto) 7.7 % 07/19/23 12:48 Eos % (Auto) 0.2 % 07/19/23 12:48 Baso % (Auto) 1.1 % 07/19/23 12:48 Neut # (Auto) 2.38 10^3/uL (1.8 -7.7) 07/19/23 12:48 Lymph # (Auto) 1.8 10^3/uL (0.8- 4.8) 07/19/23 12:48 [place] # (Auto) 0.4 10^3/uL (0.2- 0.9) 07/19/23 12:48 Eos # (Auto) 0.0 10^3/uL (0.0- 0.8) 07/19/23 12:48 Baso # (Auto) 0.1 10^3/uL (0.0- 0.1) 07/19/23 12:48 Nucleated RBC % (a uto) 0 % 07/19/23 12:48 Nucleated RBCs # 0.0 /100WBC 07/19/23 12:48 Sodium 135 mmol/L (136-1 45) L 07/19/23 12:48 Potassium 3.1 mmol/L (3.5-5 .1) L 07/19/23 12:48 Chloride 102 mmol/L (98-10 7) 07/19/23 12:48 Carbon Dioxide 22 mmol/L (22-29) 07/19/23 12:48 Anion Gap 14.1 (5-19) 07/19/23 12:48 BUN 6 mg/dL (6-20) 07/19/23 12:48 Creatinine 0.6 mg/dL (0.5-0. 9) 07/19/23 12:48 GFR Calculation 106.7 mL/min (90- 130) 07/19/23 12:48 Glucose 109 mg/dL (65-115 ) 07/19/23 12:48 Calculated Osmolal ity 278 mOsm/kg (285- 295) L 07/19/23 12:48 Calcium 8.6 mg/dL (8.5-10 .5) 07/19/23 12:48 Total Bilirubin 0.8 mg/dL (0.15-1 .2) 07/19/23 12:48 AST 32 U/L (0-32) 07/19/23 12:48 ALT 31 U/L (0-33) 07/19/23 12:48 Alkaline Phosphata se 71 U/L (35-105) 07/19/23 12:48 Total Protein 7.1 g/dL (6.6-8.7 ) 07/19/23 12:48 Albumin 3.9 g/dL (3.5-5.2 ) 07/19/23 12:48 Globulin 3.2 g/dL (1.3-4.6 ) 07/19/23 12:48 HCG, Qual Negative (Negati ve) 07/19/23 12:50 Urine Color Colorless (Yello w) 07/19/23 12:50 Urine Appearance Clear (CLEAR) 07/19/23 12:50 Urine pH 6.5 (5-7) 07/19/23 12:50 Ur Specific Gravit y 1.010 (1.005-1.0 30) 07/19/23 12:50 Urine Protein Neg (Negative) 07/19/23 12:50 Urine Glucose (UA) Norm (Normal) 07/19/23 12:50 Urine Ketones Negative (Negati ve) 07/19/23 12:50 Urine Blood Neg (Negative) 07/19/23 12:50 Urine Nitrate Negative (Negati ve) 07/19/23 12:50 Urine Bilirubin Neg (Negative) 07/19/23 12:50 Urine Urobilinogen Norm mg/dL (Negat sergio) 07/19/23 12:50 Ur Leukocyte Shahnaz ase Negative (Negati ve) 07/19/23 12:50 Urine RBC Rare /hpf (0-2) 07/19/23 12:50 Urine WBC Rare /hpf (0-5) 07/19/23 12:50 Ur Squamous Epith Cells 0-4 /hpf (0-5) H 07/19/23 12:50 Ur Renal Epithelia l Cell Rare /hpf 07/19/23 12:50 Amorphous Sediment Not Reportable 07/19/23 12:50 Urine Bacteria Trace /hpf (NONE) 07/19/23 12:50 Urine Mucus None /hpf 07/19/23 12:50 Salicylates 0.9 mg/dL (3-10) L 07/19/23 12:48 Urine Opiates Scre en Negative ng/mL (N egative) 07/19/23 12:50 Acetaminophen < 5.0 ug/mL (10-3 0) L 07/19/23 12:48 Ur Barbiturates Sc reen Negative ng/mL (N egative) 07/19/23 12:50 Ur Phencyclidine S crn Negative ng/mL (N egative) 07/19/23 12:50 Ur Amphetamines Sc reen Positive ng/mL (N egative) H 07/19/23 12:50 U Benzodiazepines Scrn Negative ng/mL (N egative) 07/19/23 12:50 Urine Cocaine Scre en Negative ng/mL (N egative) 07/19/23 12:50 U Marijuana (THC) Screen Positive ng/mL (N egative) H 07/19/23 12:50 Ethyl Alcohol 101 mg/dL (0-10) H 07/19/23 12:48 Vitals: Last Vital Signs Temp 98.8 F 07/27/23 06:00 Pulse 99 07/27/23 06:00 Resp 18 07/27/23 06:00 BP 96/62 07/27/23 06:00 Pulse Ox 97 07/27/23 06:00 O2 Del Method Room Air 07/26/23 13:21 Discharge Plan Discharge Patient Disposition: Home Condition: Stable Prescriptions: New trazodone 50 mg Tablet 50 mg PO BEDTIME PRN (Reason: Sleep) 30 Days Qty: 30 1RF Vitamin B-1 (mononitrate) 100 mg Tablet 100 mg PO DAILY 30 Days Qty: 30 1RF Continued multivitamin Tablet 1 tab PO DAILY flaxseed oil 1,000 mg Capsule 1,000 mg PO DAILY Rx Instructions: administer with a meal citalopram 40 mg tablet 40 mg PO DAILY 30 Days Qty: 30 1RF quetiapine 100 mg tablet 100 mg PO BEDTIME 30 Days Qty: 30 1RF bupropion HCl 300 mg tablet extended release 24 hr 300 mg PO DAILY 30 Days Qty: 30 1RF Discontinued thiamine HCl (vitamin B1) [Vitamin B-1] 50 mg Tablet 50 mg PO DAILY Discharge Orders: Discharge Order (Routine); Ordered 07/27/23 Ordered By: Yohan Potts Referrals: [facility] [Other] - 07/27/23 12:00 pm (Admission day) [employer] [Other] Talita Leon MD [Primary Care Provider] - Discharge Diet: Regular Discharge Activity: Resume usual activity Patient Instructions: Opioid Safety Discharge Attestations NPU Time Spent in Discharge Care*: less than 30 min Specific Discharge Activities: Specific discharge activities: educating patient, discussing with medical case manager/social workers/dc planners, documenting/other paperwork and evaluating patient/reviewing data Status at Discharge: Cognitive status at discharge: cognitively intact, Behavioral status at discharge: cooperative, Coding Level of Care Code Acute Code for Chg Fwd Diagnoses Borderline personality disorder F60.3 Adjustment disorder with mixed disturbance of emotions and conduct F43.25 Suicidal ideation R45.851 Depression F32.A Methamphetamine use disorder, severe F15.20 Alcohol use disorder, severe, dependence F10.20 Opioid use disorder, severe, dependence F11.20
[2023-07-27] MEDS: nicotine 2 mg Gum BUCCAL (07:49)
[2023-07-27 08:05] VITALS: BP 96/62; PULSE 99; RESP 18; TEMP 37.1; O2SAT 97
[2023-07-27] MEDS: citalopram 20 mg Tablet 40 MG PO (08:31)
[2023-07-27] MEDS: folic acid 1 mg Tablet PO (08:31)
[2023-07-27] MEDS: multivitamin therapeutic Tablet 1 TAB PO (08:31)
[2023-07-27] MEDS: thiamine 100 mg Tablet PO (08:31)
[2023-07-27] MEDS: buPROPion XL (24 HR) 300 mg Tablet PO (08:31)
--- NOTE | 2023-07-27 08:38 | PC.NURSE ---
Report called to nurse Citlali yung [facility] at [phone].
== END 2023-07-27 09:11 | DRG 881 ==
LOC: ER 14:15 → NP 15:37
PROVIDERS: Admitting Provider Psychiatry & Neurology Psychiatry; Emergency Provider Emergency Medicine; PCP Family Medicine; Visit Provider Psychiatry & Neurology Psychiatry
DX: F32.A Depression, unspecified (principal); R45.851 Suicidal ideations; F11.20 Opioid dependence, uncomplicated; Z59.00 Homelessness unspecified; F41.9 Anxiety disorder, unspecified; F60.3 Borderline personality disorder; F43.20 Adjustment disorder, unspecified; F15.10 Other stimulant abuse, uncomplicated; F10.20 Alcohol dependence, uncomplicated; Z72.0 Tobacco use
CPT/HCPCS: 36415; 80053; 80306; 80307; 81001; 81025; 85025; 93005; 97150; 97165; 99285

== ENCOUNTER 2024-04-12 10:52 | Emergency (ER) | payer BC, MEDICAID, SELFPAY ==
[2024-04-12 10:53] VITALS: BP 140/65; PULSE 99; RESP 18; TEMP 36.8; O2SAT 93; BMI 19.2
--- NOTE | 2024-04-12 10:59 | ECG_ITS ---
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[id number] Requested By: Brandt Clements Order Number: [id number] Kerrie MD: JENNIFER EVERETT Measurements Intervals [place] Rate: 95 P: 81 [place]: 142 QRS: 81 QRSD: 81 T: 66 QT: 356 QTc: 448 Interpretive Statements SINUS RHYTHM VOLTAGE CRITERIA FOR LVH [MEETS CRITERIA IN ONE OF: R(aVL), S(V1), R(V5), R(V5/V6)+S(V1)] ST DEVIATION AND MODERATE T-WAVE ABNORMALITY, CONSIDER LATERAL ISCHEMIA [-0.1+ mV T-WAVE IN I/aVL/V5/V6] INTERPRETATION BASED ON A DEFAULT AGE OF 40 YEARS Compared to ECG 07/19/2023 13:49:39 T-wave abnormality now present Possible ischemia now present Ventricular premature complex(es) no longer present ST (T wave) deviation no longer present Electronically Signed On 04-13-2024 20:59:35 SPOT WELDER LINE by JENNIFER EVERETT [email or web address]
--- NOTE | 2024-04-12 11:15 | XRR_ITS ---
PROCEDURE INFORMATION: Exam: XR Chest Exam date and time: 04/12/2024 11:31 AM Age: 49 years old Clinical indication: Cough; Additional info: Cough, chest tightness TECHNIQUE: Imaging protocol: Radiologic exam of the chest. Views: 1 view. COMPARISON: No relevant prior studies available. FINDINGS: Lungs: Small cluster of nodules peripheral right upper lobe. Pleural spaces: Unremarkable. No pleural effusion. No pneumothorax. Heart/Mediastinum: Cardiomediastinal silhouette is unremarkable. Bones/joints: Unremarkable. XR/XR chest 1V portable [id number] IMPRESSION: Small cluster of nodules peripheral right upper lobe. Concerning for infectious (including atypical) versus inflammatory etiology. Recommend imaging follow-up to resolution. Lungs are otherwise clear.
--- NOTE | 2024-04-12 11:19 | W.ED.URI ---
HPI - URI/Sore Throat General: Chief Complaint: Upper Respiratory Infection Stated Complaint: cough/conjestion Time Seen by Provider: 04/12/24 11:09 History of Present Illness: 49-year-old female presents with some chest tightness discomfort, body aches generalized malaise that started yesterday. Patient presents today because she feels like she is having quite a bit of tightness with that. She does have a history of smoking and has been unable to smoke. He gets worse with cough. Associated symptoms: Reports chills and chest pain (Tightness); Deny abdominal pain, nausea or vomiting Related Data Home Medications ?Medication ?Instructions ?Recorded ?Confirmed flaxseed oil 1,000 mg capsule 1,000 mg PO DAILY 07/19/23 04/12/24 multivitamin 1 tab PO DAILY 07/19/23 04/12/24 quetiapine 100 mg tablet 100 mg PO BID 04/12/24 04/12/24 Previous Rx's ?Medication ?Instructions ?Recorded bupropion HCl 300 mg 24 hr tablet, 300 mg PO DAILY 30 days #30 tabs 07/27/23 extended release citalopram 40 mg tablet 40 mg PO DAILY 30 days #30 tabs 07/27/23 albuterol sulfate 90 mcg/actuation 2 inh inhalation 6XD PRN shortness 04/12/24 aerosol inhaler (Ventolin HFA) of breath or wheezing #8.5 grams oseltamivir 75 mg capsule (Tamiflu) 75 mg PO Q12H 5 days #10 caps 04/12/24 Allergies Allergy/AdvReac Type Severity Reaction Status Date / Time lithium AdvReac Severe Unknown Verified 09/09/19 09:37 Review of Systems Const: Reports: chills, body aches, fatigue and malaise Card: Reports: chest pain (Tightness) Resp: Reports: non-productive cough, pain on inspiration and chest congestion GI: Denies: abdominal pain, nausea or vomiting : Denies: flank pain or difficulty voiding Skin/Breast: Denies: rash PFSH ED PFSH: Medical History Psychiatric care Alcohol abuse History of concussion Borderline personality disorder Bipolar 1 disorder, mixed, moderate Bipolar disorder Family History Denies family history of Dementia Psychiatric illness Suicide Social History Smoking and tobacco/nicotine status: unknown if used tobacco/nicotine Current gender identity: Female Physical Exam Const: COMMON NORMALS: no acute distress, patient oriented x3 and healthy appearing Resp: EFFORT & INSPECTION: Yes able to speak in complete sentences and No respiratory distress AUSCULTATION: no wheezes and diminished lung sounds (Mild) diffuse Cardio: COMMON NORMALS: regular rate and regular rhythm RATE: regular rate RHYTHM: regular rhythm Extremity: COMMON NORMALS: normal to inspection, full ROM and capillary refill normal Neuro: COMMON NORMALS: patient oriented x3 and no focal motor deficits Course Vital Signs: Vital signs: Vital Signs Temperature 98.3 F 04/12/24 10:53 Pulse Rate 99 04/12/24 12:45 Respiratory Rate 18 04/12/24 11:26 Blood Pressure 132/85 04/12/24 12:45 Pulse Oximetry 94 04/12/24 12:45 Oxygen Delivery Me thod Room Air 04/12/24 11:26 MDM - URI/Sore Throat Medical Decision Making Patient is positive for influenza A. I will provide her Tamiflu since she has some underlying respiratory issues. Also prescribe her Ventolin to help with her feeling of shortness of breath and decreased breath sounds that she likely has some underlying reactive airway or COPD based on her smoking history. Patient's x-ray shows a possible early pneumonia or viral changes likely due to her positive influenza. Patient is stable and discharged home. Lab Data Radiology Impressions Chest X-Ray 04/12/24 11:15 IMPRESSION: Small cluster of nodules peripheral right upper lobe. Concerning for infectious (including atypical) versus inflammatory etiology. Recommend imaging follow-up to resolution. Lungs are otherwise clear. Laboratory Results Coronavirus (PCR) Negative (Negative) 04/12/24 11:05 Influenza A (PCR) Positive (Negative) 04/12/24 11:05 Influenza Type B (PCR) Negative (Negative) 04/12/24 11:05 RSV (PCR) Negative (Negative) 04/12/24 11:05 All radiology interpretation(s) finalized by discharge Discharge Plan Discharge Patient Disposition: Home Clinical Impression: Influenza Condition: Stable Prescriptions: New oseltamivir [Tamiflu] 75 mg capsule 75 mg PO Q12H 5 Days Qty: 10 0RF albuterol sulfate [Ventolin HFA] 90 mcg/actuation HFA aerosol inhaler 2 inh inhalation 6XD PRN (Reason: shortness of breath or wheezing) Qty: 8.5 0RF No Action multivitamin Tablet 1 tab PO DAILY flaxseed oil 1,000 mg Capsule 1,000 mg PO DAILY Rx Instructions: administer with a meal citalopram 40 mg tablet 40 mg PO DAILY 30 Days Qty: 30 1RF bupropion HCl 300 mg tablet extended release 24 hr 300 mg PO DAILY 30 Days Qty: 30 1RF quetiapine 100 mg tablet 100 mg PO BID Discharge Orders: Discharge ED (Routine); Ordered 04/12/24 Ordered By: Brandt Clements Referrals: Talita Leon MD [Primary Care Provider] - Discharge Diet: Usual diet Discharge Activity: Increase activity as tolerated Patient Instructions: Influenza (DC), Opioid Safety, Pain Management Activity Restrictions/Additional Instructions: Tylenol or ibuprofen as needed for body aches, fever and discomfort. You may use inhaler every 4-6 hours as needed for shortness of breath, follow-up with your primary care provider in about a week if symptoms or not starting to improve. Stand Alone Forms: Work/School Release Print Language: Scottish Coding Level of Care Code ED Quality Analyst/Technical Writer for Joshua Powell
[2024-04-12 11:26] VITALS: PULSE 89; RESP 18; O2SAT 96
[2024-04-12] MEDS: ipratropium-albuterol 3 mL Neb INHALATION (11:29)
[2024-04-12 11:56] LABS: Covid PCR NEGATIVE (Negative); Influenza A POSITIVE (Negative); Influenza B NEGATIVE (Negative); Respiratory Syncytial Virus Ce NEGATIVE (Negative)
[2024-04-12 12:45] VITALS: BP 132/85; PULSE 99; O2SAT 94
== END 2024-04-12 12:47 | disposition home or self-care (01) ==
PROVIDERS: Emergency Provider Student in an Organized Health Care Education/Training Program; PCP Family Medicine
DX: J10.1 Influenza due to other identified influenza virus with other respiratory manifestations (principal); Z11.52 Encounter for screening for COVID-19
CPT/HCPCS: 71045; 87637; 93005; 94640; 99284

== ENCOUNTER → 2024-04-14 14:37 | Outpatient (BNVA) | payer BC, SELFPAY | PROVIDERS: PCP Family Medicine; Visit Provider Psychiatry & Neurology Psychiatry | DX: F11.20 Opioid dependence, uncomplicated (principal); Z79.899 Other long term (current) drug therapy | CPT/HCPCS: 80307 ==

== ENCOUNTER → 2024-04-17 15:47 | Outpatient (BNVA) | payer BC, SELFPAY | PROVIDERS: PCP Family Medicine; Visit Provider Registered Nurse Neonatal Intensive Care | DX: R39.9 Unspecified symptoms and signs involving the genitourinary system (principal) | CPT/HCPCS: 81000 ==

== ENCOUNTER → 2024-05-06 09:46 | Outpatient (BNVA) | payer BC, SELFPAY | PROVIDERS: PCP Family Medicine; Visit Provider Registered Nurse Neonatal Intensive Care | DX: Z20.2 Contact with and (suspected) exposure to infections with a predominantly sexual mode of transmission (principal) | CPT/HCPCS: 87491; 87591; 87661 ==

== ENCOUNTER 2024-05-07 21:36 | Inpatient (IN) | payer BC, SELFPAY ==
[2024-05-07 21:37] VITALS: BP 115/61; PULSE 86; RESP 18; TEMP 36.7; O2SAT 98; BMI 28.1
--- NOTE | 2024-05-07 21:58 | PC.NURSE ---
Belongings were inventoried with security at this time
[2024-05-07 22:07] LABS: Bilirubin Urine Negative (Negative); Blood Urine Negative (Negative); Glucose Urine UA Negative (Normal); Ketones Urine Negative (Negative); Leukocyte Esterase Urine Trace (Negative); Nitrate Urine Negative (Negative); Protein Urine Negative (Negative); Specific Gravity, Urine 1.005 (1.005-1.030); Urine Appearance Clear (CLEAR); Urine Color Yellow (Yellow); pH Urine 5.5 (5-7)
[2024-05-07 22:12] LABS: Basophils # 0.1 10^3/uL (0.0-0.1); Basophils % 0.7 %; Eosinophils % 0.4 %; Hematocrit 38.1 % (36-47); Lymphocytes # 3.1 10^3/uL (0.8-4.8); Lymphocytes % 43.2 %; Mean Corpuscular HGB Conc 33.9 g/dL (30-55); Mean Corpuscular Hemoglobin 29.3 pg (27-33); Mean Corpuscular Volume 86.6 fl (85-98); Mean Platelet Volume 9.6 fL (7.4-10.4); Monocytes # 0.7 10^3/uL (0.2-0.9); Monocytes % 9.7 %; Neutrophils # 3.29 10^3/uL (1.8-7.7); Neutrophils % 45.9 %; Nucleated Red Blood Cells % 0 %; Platelet Count 342 10^3/cmm (157-399); Red Cell Distribution Width 12.7 % (12.1-15.1); White Blood Count 7.18 10^3/uL (3.29-11.43)
[2024-05-07 22:13] LABS: Amphetamines Screen Urine Positive (Negative); Barbiturates Screen Urine Negative (Negative); Benzodiazepines Screen Urine Negative (Negative); Cocaine Screen Urine Negative (Negative); Opiate Screen Urine Negative (Negative); PCP Screen Urine Negative (Negative); THC Screen Urine Positive (Negative)
--- NOTE | 2024-05-07 22:27 | ED.C_ITS ---
HPI - Psych 2 General: Chief Complaint: Psychiatric Symptoms Stated Complaint: behavioral Time Seen by Provider: 05/07/24 21:51 History of Present Illness: Patient brought in by EMS after being found unresponsive in a avila at [facility]. She states she is having suicidal ideation and she use drugs that was laced with fentanyl and alcohol. She says she has plans on jumping out in front of a car or overdosing. Patient has been here before last time being 07/27/2023, per chart review it appears patient does see Dr. Tim Guajardo through [facility]. Related Data Home Medications ?Medication ?Instructions ?Recorded ?Confirmed flaxseed oil 1,000 mg capsule 1,000 mg PO DAILY 04/17/24 multivitamin 1 tab PO DAILY 07/19/2304/05 Previous Rx's ?Medication ?Instructions ?Recorded albuterol sulfate 90 mcg/actuation 2 inh inhalation 6X D PRN shortness 04/12/24 aerosol inhaler (Ventolin HFA) of breath or wheezing # 8.5 grams buprenorphine 8 mg-naloxone 2 mg 1 film sublingual RUKHSANA LY #30 ea 04/14/24 sublingual film bupropion HCl 300 mg 24 hr tablet, 300 mg PO DAILY 30 days #30 tabs 04/14/24 extended release citalopram 40 mg tablet 40 mg PO DAILY 30 days #30 t abs 04/14/24 quetiapine 100 mg tablet 100 mg PO .HS #30 tabs 04/14 fluconazole 150 mg tablet 150 mg PO Q3D 2 doses #2 tab s 04/17/24 Allergies Allergy/AdvReac Type Severity Reaction Status Date / Time lithium AdvReac Severe Unknown Verified 05/07/24 21:44 Review of Systems 2 General: Reports: 10 or more systems reviewed and unremarkable except in HPI and below PFSH ED 2 PFSH: Medical History Psychiatric care Alcohol abuse History of concussion Borderline personality disorder Bipolar 1 disorder, mixed, moderate Bipolar disorder Family History Denies family history of Dementia Psychiatric illness Suicide Social History Smoking and tobacco/nicotine status: current every day tobacco/nicotine user Current gender identity: Female Female Reproductive History: Date of last menstrual period: 05/07/24 Physical Exam 2 Const: COMMON NORMALS: no acute distress, average body habitus, patient oriented x3, no limitations, healthy appearing, alert and well nourished HENMT: COMMON NORMALS: normocephalic, atraumatic, hearing grossly normal bilaterally, external ears normal, Normal external nose present, moist oral mucous membranes and oropharynx normal HEAD & SCALP: normocephalic and atraumatic NOSE: Normal external nose present EXTERNAL EAR: Yes external ears normal Neck/C-Spine: COMMON NORMALS: no JVD Chest: COMMONS NORMALS: normal inspection of the chest and normal palpation of entire chest wall Resp: COMMON NORMALS: normal respiratory effort, No retractions, No use of accessory muscles and clear to auscultation bilaterally AUSCULTATION: clear to auscultation bilaterally Cardio: COMMON NORMALS: no JVD, regular rate, regular rhythm, S1 normal heart sound present, S2 normal heart sound present, No gallops present (Cardio), No clicks present (Cardio), No murmurs present (Cardio) and No rub (Cardio) R ATE: regular rate RHYTHM: regular rhythm HEART SOUNDS: S1 normal heart sound present and S2 normal heart sound present GI: COMMON NORMALS: Normal to inspection, nondistended, normoactive bowel sounds present, Soft to palpation, non-tender, No hepatosplenomegaly present and no masses PALPATION: Yes Soft to palpation and Yes No hepatosplenomegaly present Neuro: COMMON NORMALS: patient oriented x3 SENSORIUM/ORIENTATION: Yes alert Course 2 Vital Signs: Vital signs: Vital Signs Temperature 98.1 F 05/07/24 21:37 Pulse Rate 86 05/07/24 21:37 Respiratory Rate 18 05/07/24 21:37 Blood Pressure 115/61 05/07/24 21:37 Pulse Oximetry 98 05/07/24 21:37 Oxygen Delivery Me thod Room Air 05/07/24 21:37 MDM - Psych Medical Decision Making Patient was cleared medically through the ER, potassium 3.1, urine drug screen showed amphetamines and THC. Dr. Potts was notified and he accepted the patient to [facility] for further evaluation treatment. Medical Records I reviewed the patient's medical records. Lab Data I reviewed the patient's lab results. 05/07/24 22:00 05/07/24 22:00 Laboratory Results WBC 7.18 10^3/uL (3.29-11.43) 05/07/24 22:00 RBC 4.40 10^6/uL (3.85-5.65) 05/07/24 22:00 Hgb 12.90 g/dL (11.27-16.99) 05/07/24 22:00 Hct 38.1 % (36-47) 05/07/24 22:00 MCV 86.6 fl (85-98) 05/07/24 22:00 MCH 29.3 pg (27-33) 05/07/24 22:00 MCHC 33.9 g/dL (30-55) 05/07/24 22:00 RDW 12.7 % (12.1-15.1) 05/07/24 22:00 Plt Count 342 10^3/cmm (157-399) 05/07/24 22:00 MPV 9.6 fL (7.4-10.4) 05/07/24 22:00 Neut % (Auto) 45.9 % 05/07/24 22:00 Lymph % (Auto) 43.2 % 05/07/24 22:00 [place] % (Auto) 9.7 % 05/07/24 22:00 Eos % (Auto) 0.4 % 05/07/24 22:00 Baso % (Auto) 0.7 % 05/07/24 22:00 Neut # (Auto) 3.29 10^3/uL (1.8-7.7) 05/07/24 22:00 Lymph # (Auto) 3.1 10^3/uL (0.8-4.8) 05/07/24 22:00 [place] # (Auto) 0.7 10^3/uL (0.2-0.9) 05/07/24 22:00 Eos # (Auto) 0.0 10^3/uL (0.0-0.8) 05/07/24 22:00 Baso # (Auto) 0.1 10^3/uL (0.0-0.1) 05/07/24 22:00 Nucleated RBC % (auto) 0 % 05/07/24 22:00 Nucleated RBCs # 0.0 /100WBC 05/07/24 22:00 Sodium 138 mmol/L (136-145) 05/07/24 22:00 Potassium 3.1 mmol/L (3.5-5.1) L 05/07/24 22:00 Chloride 101 mmol/L (98-107) 05/07/24 22:00 Carbon Dioxide 21 mmol/L (22-29) L 05/07/24 22:00 Anion Gap 19.1 (5-19) H 05/07/24 22:00 BUN 10 mg/dL (6-20) 05/07/24 22:00 Creatinine 0.6 mg/dL (0.5-0.9) 05/07/24 22:00 GFR Calculation 106.3 mL/min (90-130) 05/07/24 22:00 Glucose 97 mg/dL (65-115) 05/07/24 22:00 Calculated Osmolality 285 mOsm/kg (285-295) 05/07/24 22:00 Calcium 9.5 mg/dL (8.5-10.5) 05/07/24 22:00 Total Bilirubin 1.1 mg/dL (0.15-1.2) 05/07/24 22:00 AST 45 U/L (0-32) H 05/07/24 22:00 ALT 33 U/L (0-33) 05/07/24 22:00 Alkaline Phosphatase 85 U/L (35-105) 05/07/24 22:00 Total Protein 7.8 g/dL (6.6-8.7) 05/07/24 22:00 Albumin 4.2 g/dL (3.5-5.2) 05/07/24 22:00 Globulin 3.6 g/dL (1.3-4.6) 05/07/24 22:00 Urine Color Yellow (Yellow) 05/07/24 21:56 Urine Appearance Clear (CLEAR) 05/07/24 21:56 Urine pH 5.5 (5-7) 05/07/24 21:56 Ur Specific [place] 1.005 (1.005-1.030) 05/07/24 21:56 Urine Protein Negative (Negative) 05/07/24 21:56 Urine Glucose (UA) Negative (Normal) 05/07/24 21:56 Urine Ketones Negative (Negative) 05/07/24 21:56 Urine Blood Negative (Negative) 05/07/24 21:56 Urine Nitrate Negative (Negative) 05/07/24 21:56 Urine Bilirubin Negative (Negative) 05/07/24 21:56 Urine Urobilinogen 1.0 mg/dL (Negative) 05/07/24 21:56 Ur Leukocyte Esterase Trace (Negative) A 05/07/24 21:56 Urine RBC 0-4 /hpf (0-2) H 05/07/24 21:56 Urine WBC 0-4 /hpf (0-5) H 05/07/24 21:56 Ur Squamous Epith Cells 0-4 /hpf (0-5) H 05/07/24 21:56 Amorphous Sediment Not Reportable 05/07/24 21:56 Urine Bacteria Trace /hpf (NONE) 05/07/24 21:56 Salicylates 0.5 mg/dL (3-10) L 05/07/24 22:00 Urine Opiates Screen Negative ng/mL (Negative) 05/07/24 21:56 Acetaminophen < 5.0 ug/mL (10-30) L 05/07/24 22:00 Ur Barbiturates Screen Negative ng/mL (Negative) 05/07/24 21:56 Ur Phencyclidine Scrn Negative ng/mL (Negative) 05/07/24 21:56 Ur Amphetamines Screen Positive ng/mL (Negative) H 05/07/24 21:56 U Benzodiazepines Scrn Negative ng/mL (Negative) 05/07/24 21:56 Urine Cocaine Screen Negative ng/mL (Negative) 05/07/24 21:56 U Marijuana (THC) Screen Positive ng/mL (Negative) H 05/07/24 21:56 Ethyl Alcohol < 10 mg/dL (0-10) 05/07/24 22:00 All radiology interpretation(s) finalized by discharge Discharge Plan Discharge Patient Disposition: Admitted As Inpatient Clinical Impression: Suicidal ideation, Polysubstance abuse Condition: Stable Coding Level of Care Code ED Signal System Testing Maintainer for Joshua Powell
[2024-05-07 22:32] LABS: Add Urine Microscopic? YES; Bacteria Urine TRACE /hpf; RBC Urine 0-4 /hpf (0-2); Squamous Epithelial Cell Urine 0-4 /hpf (0-5); UA Manual Slide Review YES; UA Slide Review UA Slide Review Perf; WBC Urine 0-4 /hpf (0-5)
[2024-05-07 22:35] LABS: Alanine Aminotransferase 33 U/L (0-33); Albumin Level 4.2 g/dL (3.5-5.2); Alkaline Phosphatase 85 U/L (35-105); Anion Gap 19.1 (5-19); Aspartate Amino Transferase 45 U/L (0-32); Blood Urea Nitrogen 10 mg/dL (6-20); Calcium 9.5 mg/dL (8.5-10.5); Carbon Dioxide 21 mmol/L (22-29); Chloride 101 mmol/L (98-107); Creatinine Clr Calc Pharmacy 124.6531; Globulin 3.6 g/dL (1.3-4.6); Glomerular Filtration Rate 106.3 mL/min (90-130); Glucose 97 mg/dL (65-115); Osmolality Calculated 285 mOsm/kg (285-295); Potassium 3.1 mmol/L (3.5-5.1); Salicylate 0.5 mg/dL (3-10); Sodium 138 mmol/L (136-145); Total Bilirubin 1.1 mg/dL (0.15-1.2); Total Protein 7.8 g/dL (6.6-8.7)
[2024-05-07 22:38] LABS: Acetaminophen < 5.0 ug/mL (10-30); Alcohol Level < 10 mg/dL (0-10)
--- NOTE | 2024-05-07 23:05 | PC.NURSE ---
96 Hour Involuntary Hold Patient Rights have been reviewed with the patient and a copy of the same has been given to her. [employer] Representative Carlin Stout was present at the bedside at the time of presentation of Rights.
[2024-05-08] VITALS (7 sets, daily range): BP systolic 98–125; BP diastolic 60–84; PULSE 76–93; RESP 14–18; TEMP 36.6–37; O2SAT 94–100
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
[2024-05-08] MEDS: multivitamin therapeutic Tablet 1 TAB PO (08:43)
[2024-05-08] MEDS: buPROPion XL (24 HR) 300 mg Tablet PO (08:43)
[2024-05-08] MEDS: citalopram 20 mg Tablet 40 MG PO (08:43)
--- NOTE | 2024-05-08 08:57 | PC.NURSE ---
when this instructor physical education was administering scheduled buprenorphine sublingual film 4mg/1mg as pt was taking one film pt was refusing second film. pt then stated she would take the next one later. informed pt that she would be offered two at the next scheduled time for administration.
[2024-05-08] MEDS: buprenorphine-naloxone 4-1 mg Film 1 EACH SUBLINGUAL (10:13)
--- NOTE | 2024-05-08 14:23 | PC.NURSE ---
pt up at nurses station yelling and cussing at staff demanding to use her phone, so that she can call who she needs to call right now. pt has be resting all morning. pt demanding to leave facility because the police told her she didnt have to stay very long, attempted to explain pt that she was on a 96 hour hold and that it was up to the doctor when pt left. attempts to descalate pt unsuccessful by this staff member do to pt inablilty to quit talking chargeback specialist finally instructed pt that the phone would be charged but if we could find a hospice music therapy for the phone.
[2024-05-08] MEDS: OLANZapine 5 mg ODT PO (15:12)
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
[2024-05-08] MEDS: quetiapine 100 mg Tablet PO (21:07)
[2024-05-09 06:00] VITALS: BP 104/66; PULSE 85; RESP 16; TEMP 37.1; O2SAT 98
[2024-05-09] MEDS: buPROPion XL (24 HR) 300 mg Tablet PO (08:46)
[2024-05-09] MEDS: buprenorphine-naloxone 4-1 mg Film 2 EACH SUBLINGUAL (08:46)
[2024-05-09] MEDS: citalopram 20 mg Tablet 40 MG PO (08:46)
[2024-05-09] MEDS: OLANZapine 5 mg ODT PO (08:46)
[2024-05-09] MEDS: multivitamin therapeutic Tablet 1 TAB PO (08:46)
[2024-05-09 14:00] VITALS: BP 103/62; PULSE 89; RESP 16; TEMP 36.8; O2SAT 95
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
[2024-05-09] MEDS: quetiapine 100 mg Tablet PO (20:20)
[2024-05-09 20:50] VITALS: BP 95/54; PULSE 65; RESP 16; TEMP 36.4; O2SAT 99
[2024-05-10 06:00] VITALS: BP 95/59; PULSE 53; RESP 16; O2SAT 96
[2024-05-10] MEDS: multivitamin therapeutic Tablet 1 TAB PO (10:43)
[2024-05-10] MEDS: buPROPion XL (24 HR) 300 mg Tablet PO (10:44)
[2024-05-10] MEDS: citalopram 20 mg Tablet 40 MG PO (10:44)
[2024-05-10] MEDS: OLANZapine 5 mg ODT PO (12:44)
--- NOTE | 2024-05-10 13:34 | PC.NURSE ---
pt refused buprenorphine and naloxone sublingual film 4mg/1mg film x 2 today.
[2024-05-10 14:00] VITALS: BP 103/60; PULSE 63; RESP 15; TEMP 36.4; O2SAT 97
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
[2024-05-10] MEDS: quetiapine 100 mg Tablet PO (20:29)
[2024-05-10 21:06] VITALS: BP 136/80; PULSE 69; RESP 16; TEMP 36.9; O2SAT 100
[2024-05-11 06:00] VITALS: BP 86/61; PULSE 65; RESP 18; TEMP 36.6; O2SAT 98; BMI 28.2
[2024-05-11] MEDS: citalopram 20 mg Tablet 40 MG PO (07:53)
[2024-05-11] MEDS: buPROPion XL (24 HR) 300 mg Tablet PO (07:53)
[2024-05-11] MEDS: multivitamin therapeutic Tablet 1 TAB PO (08:21)
[2024-05-11 14:00] VITALS: BP 116/74; PULSE 70; RESP 16; TEMP 37; O2SAT 97
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
--- NOTE | 2024-05-11 16:59 | PC.NURSE ---
Pt. stayed to herself the majority of the shift today. No issues or problems.
[2024-05-11 20:13] VITALS: BP 105/57; PULSE 68; RESP 16; TEMP 36.8; O2SAT 97
[2024-05-11] MEDS: quetiapine 100 mg Tablet 150 MG PO (20:46)
[2024-05-12 06:00] VITALS: BP 119/73; PULSE 72; RESP 18; TEMP 36.5; O2SAT 95
[2024-05-12] MEDS: buPROPion XL (24 HR) 300 mg Tablet PO (08:14)
[2024-05-12] MEDS: multivitamin therapeutic Tablet 1 TAB PO (08:14)
[2024-05-12] MEDS: citalopram 20 mg Tablet 40 MG PO (08:14)
[2024-05-12] MEDS: buprenorphine-naloxone 4-1 mg Film 2 EACH SUBLINGUAL (08:15)
[2024-05-12] MEDS: OLANZapine 5 mg ODT PO ×2 (09:27→16:19)
[2024-05-12] MEDS: hyDROXYzine 25 mg Capsule 50 MG PO (12:38)
[2024-05-12 14:00] VITALS: BP 115/76; PULSE 87; RESP 16; TEMP 37.1; O2SAT 98
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
[2024-05-12] MEDS: quetiapine 100 mg Tablet 200 MG PO (19:38)
[2024-05-12 20:03] VITALS: BP 123/59; PULSE 83; RESP 18; TEMP 36.7; O2SAT 95
[2024-05-13 06:00] VITALS: BP 101/63; PULSE 77; RESP 17; TEMP 36.4; O2SAT 97
[2024-05-13] MEDS: hyDROXYzine 25 mg Capsule 50 MG PO ×2 (06:36→17:41)
[2024-05-13] MEDS: polyethylene glycol 3350 Pkt 17 gm PO (08:02)
[2024-05-13] MEDS: buPROPion XL (24 HR) 300 mg Tablet PO (08:02)
[2024-05-13] MEDS: buprenorphine-naloxone 4-1 mg Film 2 EACH SUBLINGUAL (08:02)
[2024-05-13] MEDS: citalopram 20 mg Tablet 40 MG PO (08:02)
[2024-05-13] MEDS: multivitamin therapeutic Tablet 1 TAB PO (08:02)
[2024-05-13] MEDS: nicotine 2 mg Gum BUCCAL (08:09)
--- NOTE | 2024-05-13 09:27 | PC.NURSE ---
This nurse talked with staff at [facility] who was able to verify that patient has a bed available until tomorrow night at 1159pm.
[2024-05-13] MEDS: OLANZapine 5 mg ODT PO ×2 (11:57→21:08)
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
[2024-05-13 14:00] VITALS: BP 95/60; PULSE 74; RESP 18; TEMP 36.6; O2SAT 99
[2024-05-13] MEDS: metroNIDAZOLE 500 MG Tablet PO (17:41)
[2024-05-13 20:00] VITALS: BP 102/62; PULSE 88; RESP 18; TEMP 36.7; O2SAT 96
[2024-05-13] MEDS: trazodone 50 mg Tablet PO (21:08)
[2024-05-13] MEDS: clindamycin 150 mg Capsule 300 MG PO (21:08)
[2024-05-13] MEDS: quetiapine 100 mg Tablet 200 MG PO (21:08)
[2024-05-13] MEDS: diphenhydrAMINE 50 mg Capsule PO (21:19)
[2024-05-14] MEDS: diphenhydrAMINE 50 mg Capsule PO (00:35)
[2024-05-14] MEDS: OLANZapine 5 mg ODT PO ×2 (03:41→08:53)
[2024-05-14 06:00] VITALS: BP 113/76; PULSE 75; RESP 17; TEMP 36.9; O2SAT 99
[2024-05-14] MEDS: nicotine 2 mg Gum BUCCAL ×2 (06:37→08:53)
[2024-05-14] MEDS: polyethylene glycol 3350 Pkt 17 gm PO (08:52)
[2024-05-14] MEDS: citalopram 20 mg Tablet 40 MG PO (08:53)
[2024-05-14] MEDS: clindamycin 150 mg Capsule 300 MG PO (08:53)
[2024-05-14] MEDS: buprenorphine-naloxone 4-1 mg Film 2 EACH SUBLINGUAL (08:53)
[2024-05-14] MEDS: buPROPion XL (24 HR) 300 mg Tablet PO (08:53)
[2024-05-14] MEDS: multivitamin therapeutic Tablet 1 TAB PO (08:53)
[2024-05-14] MEDS: hyDROXYzine 25 mg Capsule 50 MG PO (08:57)
[2024-05-14] MEDS: hydrocortisone 1% cream 28 gm 1 APPLIC TOPICAL (08:58)
--- NOTE | 2024-05-14 10:41 | P.NPUDS_ITS ---
Diagnoses at Discharge Discharge Diagnosis (1) Unspecified psychosis: Status: Acute (2) Depression, unspecified: Status: Acute (3) Borderline personality disorder: Status: Chronic (4) Adjustment disorder with mixed disturbance of emotions and conduct: Status: Resolved (5) Suicidal ideation: Status: Resolved (6) Methamphetamine use disorder, severe: Status: Acute (7) Alcohol use disorder, severe, dependence: Status: Acute (8) Opioid use disorder, severe, dependence: Status: Acute Reason for Visit Reason for Visit: behavioral Brief History: History of Present Illness Tamie Mathew is a 49 year old female who presented to the emergency department with the following report: Chief Complaint: Psychiatric Symptoms Stated Complaint: behavioral Time Seen by Provider: 05/07/24 21:51 History of Present Illness: Patient brought in by EMS after being found unresponsive in a avila at [facility]. She states she is having suicidal ideation and she use drugs that was laced with fentanyl and alcohol. She says she has plans on jumping out in front of a car or overdosing. Patient has been here before last time being 07/27/2023, per chart review it appears patient does see Dr. Tim Guajardo through [facility]. She was admitted to the neuropsychiatric unit for definitive treatment of those issues. She is known to [facility] through inpatient and outpatient services with her psychiatric evaluation and April of this year with Dr. Guajardo. She was last seen here inpatient in July of last year and an excerpt of that note is included below for context. She presents today reporting that she is not been taking her medication and has been struggling with her addiction. S he is very poor historian and was essentially unable to really answer questions and what she did say was hard to understand as she was lying in bed. We discussed the risk benefits and alternatives of restarting her medication and looking at possible options for sober living facilities. At this point she was ambivalent and was reporting that maybe someone had put something in her drink or something which is the reason why she tested positive and was found unresponsive. Per her 07/27/2023 [facility] inpatient psychiatric discharge summary: Discharge Diagnosis (1) Borderline personality disorder: Status: Chronic (2) Adjustment disorder with mixed distu rbance of emotions and conduct: Status: Resolved (3) Suicidal ideation: Status: Resolved (4) Depression: Status: Acute (5) Methamphetamine use disorder, severe : Status: Acute (6) Alcohol use disorder, severe, depend ence: Status: Acute (7) Opioid use disorder, severe, depende nce: Status: Acute Reason for Visit Reason for Visit: SI Brief History: History of Present Illness Tamie Mathew is a 48 year old female who presented to the emergency d [facility] with the following report: Chief Complaint: Psychiatric Symptoms Stated Complaint: SI Time Seen by Provider: 07/19/23 12:37 History of Present Illness: Patient with history of bipolar disorder, borderline personality disorder and tobacco dependence and methamphetamine abuse who presents to the emergency room with suicidal thoughts. She says she has been drinking and doing some me thamphetamine recently and today she started having suicidal thoughts. She said she would take a fentanyl overdose if she could find some. She is requesting admission to the psychiatric unit. She was admitted to the neuropsychiatric unit for definitive treatment of those issues. She presents today known to the neuropsychiatric unit from past hospitalizations including 1 in September 2019 as well as May 2019. An excerpt of her last discharge summary is included below for context. She presented today with the following report: Chief complaint Patient reports feeling suicidal, struggling with mood, anxiety, and depression. Reports a recent freak out that led to the consultation. History of the present complaint The patient reported a history of homelessness, with the last stable housing situation being a few months ago, facilitated by a friend. The patient disclosed a relapse into substance use, specifically alcohol, which seemed to disrupt this stable living situation. The patient has not been attending outpatient treatment and has had inconsistent medication use due to theft. The patient reported feeling suicidal and experiencing heightened anxiety and depression. The patient expressed a desire to enter rehab and believes that resuming medication and sobriety will improve their situation. The patient has been taking Wellbutrin intermittently, but more regularly in the last few months when they were off the streets. The patient's mood at the time of the consultation was described as pretty depressed , but they denied any current thoughts of self-harm, harm to others, paranoia, or hallucinations. The patient reported sleeping all day. The patient has been in inpatient treatment a couple of times since 2019. Mental health history Patient has a history of addiction, specifically alcohol. Has been in and out of inpatient treatment at the [facility] in [place]. Has been on Wellbutrin, which seemed to help with symptoms, but medication use has been inconsistent due to theft. Social history Patient has been homeless for a significant period, with brief periods of stable housing. Recently, patient was staying with a friend, which provided some stability, but started using again. Per her 09/10/2019 [facility] inpatient psychiatric discharge summary: Discharge Diagnosis (1) Suicidal ideation: Status: Resolved (2) Borderline personality disorder: Status: Chronic (3) Adjustment disorder with mixed distu rbance of emotions and conduct: Status: Resolved Reason for Visit Reason for Visit: ASKING TO GO TO NPU Brief History: History of present illness:Tamie Mathew is a 44 year old female who was admitted to the adult psychiatric unit with the following chief complaint:HPI Patient is a 44-year-old female with a history of bipolar here for complaints of suicidal ideations and feelings of darrel. Patient tells me yesterday she got into an argument with her mother who has guardianship of her two children and is fearful that the mother will kick her out and she will not be able to see her kids. She tells me she has not slept over the past 2 days and feels extremely anxious and irritable. Patient has no specific plan for suicide. She denies homicidal ideations. She denies visual or auditory hallucinations. She denies drug or alcohol use. Discharge Diagnosis (1) Bipolar 1 disorder, mixed, moderate: Status: Inactive Problem details: This is a longstanding diagnosis and her current crisis is the product of noncompliance with medications which she asserts are known to have stabilized her. (2) Suicidal ideation: Status: Resolved Discharge medications: citalopram 40 mg (2 x 20 mg) PO DAILY quetiapine 100 mg PO BEDTIME Mental health history: This is her second hospitalization this year. Her hospitalization on 05/14/2019 give these details.HPI Narrative: Patient is a 44-year-old female with a history of bipolar here for complaints of suicidal ideations and feelings of darrel. Patient tells me yesterday she got into an argument with her mother who has guardianship of her two children and is fearful that the mother will kick her out and she will not be able to see her kids. She tells me she has not slept over the past 2 days and feels extremely anxious and irritable. Patient has no specific plan for suicide. She denies homicidal ideations. She denies visual or auditory hallucinations. She denies drug or alcohol use. According to her subsequent outpatient assessment on 06/19/2019: Suicide Ideation for the Past Month Have you wished you were or wished you could go to sleep and not wake up?: Yes Have you actually had any thoughts of killing yourself? (e.g., ?I?ve thought about killing myself?): Yes If YES to 2, ask questions 3, 4, 5, and 6. If NO to 2, go directly to question 6 Have you been thinking about how you might do this? ?I thought about taking an overdose but I never made a specific plan as to when where or how I would actually do it and I would never go through with it : Yes ( I have in the past ) I thought about taking an overdose but I never made a specific plan as to when, where, or how I would actually do it....and I would never go through with it Have you had these thoughts and had some intention of acting on them? As opposed to ?I have the thoughts but I definitely will not do anything about them.?: Yes (overdosed recently) As opposed to I have the thoughts but I definitely will not do anything about them. Have you started to work out or worked out the details of how to kill yourself and do you intend to carry out this plan?: Yes Have you done anything, started to do anything, or prepared to do anything to end your life?: Yes How long ago did you do any of these?: Within the last three months? - Last Reconciled 06/19/19 by Lpue Mueller Social history: Legal history: She has 4 arrests in the past 6 years, all for theft. Today she states that it is her understanding that she will be likely remanded for long-term time at her next court date. Past medical history: Please see emergency room notes. Hospital Course Patient was admitted to the adult psychiatridc unit and entered into the full array of individual and group psychotherapies. She also recieved an assessment and support from the social work service. She had 24 hourt supervision and support from trained psychiatric nursing personnel. She utilized these services to address her acute situation and came to an acceptable resolution. She was advised to remain in the hospital for further assessment and treatment. She demanded discharge against medical advice. She was not deemed to be an imminent danger to self orothers and was permitted to sign out against medical advice. Hospital Course She slowly acclimated to the individual, group and milieu therapies provided. She presented with active addiction and mental health challenges. We continued her medication but did add Seroquel which was titrated to 100 mg p.o. nightly. She had a robust response to the medication. She worked with the social work team to find appropriate outpatient services and appointments as well as sober living treatment which led to identifying an inpatient facility which we were able to directly discharge her to.. She had significant improvement and was able to contract for safety outside of the hospital, prior to discharge. During the hospitalization, patient had routine laboratory studies which were within normal limits except for few outliers. Additionally there was a general medical evaluation which was also within normal limits and revealed no new acute proc esses. Discharge Summary: At the time of discharge, she denied psychosis or lethality. Mood and anxiety were well managed. Patient endorsed a plan to avoid all drugs of abuse and follow-up with the aftercare recommendations of the treatment team. Patient was evaluated and deemed to be absent credible lethality, and had achieved the maximum benefit from an inpatient hospitalization, so was discharged. Hospital Course Hospital Course During the hospitalization, the patient had routine laboratory studies which were within normal limits except for a few outliers.? Additionally, there was a general medical evaluation which was also within normal limits and revealed no new acute processes.? At the time of discharge, lethality was denied and psychosis was resolving.? Mood and anxiety were well managed.? The patient endorsed a plan to avoid all drugs of abuse and follow up with the aftercare recommendations of the treatment team.? The patient was evaluated and deemed to be absent credible lethality and had achieved the maximum benefit from an inpatient hospitalization, and so was discharged. The patient was restarted on her outpatient medications including buprenorphine, wellbutrin xl, celexa and seroquel. Seroquel was increased to 200mg at discharge and celexa was increased to 40mg at the time of discharge. She was agreeable witih going to [facility] for placement. Involuntary Hold Information Hold Status: Legal Status: 96 Hour Hold Date/Time Hold Expires: 05/13/24 @ 21:36 96 Hour Hold: 96 Hour Involuntary Admission: No Mental Status Exam MSE Comments: This is a slender/underweight white female in hospital scrubs with improving grooming and eye contact who appeared older than her stated age. No abnormal involuntary motor movements were appreciated. She was cooperative with exam in no acute distress. Speech was normal in rate, and productivity with normal volume. Mood described as better. Affect was mood congruent and irritable. Thought process was linear. Thought content: Patient denied any suicidal or homicidal ideation at this moment, there were no delusions reported or noted, she denies any auditory or visual hallucinations. She was less hypervigilant today with no paranoia noted. No current thoughts of self-harm or harm to others. Attention and concentration are limited and memory is somewhat unreliable but none were formally tested. She is alert and oriented x person and place and time. Her insight is poor. Her judgment is fair. Her impulse control was fair. Discharge Data Studies Completed and Pending: Laboratory Results WBC 7.18 10^3/uL (3.2 9-11.43) 05/07/24 22:00 RBC 4.40 10^6/uL (3.8 5-5.65) 05/07/24 22:00 Hgb 12.90 g/dL (11.27 -16.99) 05/07/24 22:00 Hct 38.1 % (36-47) 05/07/24 22:00 MCV 86.6 fl (85-98) 05/07/24 22:00 MCH 29.3 pg (27-33) 05/07/24 22:00 MCHC 33.9 g/dL (30-55) 05/07/24 22:00 RDW 12.7 % (12.1-15.1 ) 05/07/24 22:00 Plt Count 342 10^3/cmm (157 -399) 05/07/24 22:00 MPV 9.6 fL (7.4-10.4) 05/07/24 22:00 Neut % (Auto) 45.9 % 05/07/24 22:00 Lymph % (Auto) 43.2 % 05/07/24 22:00 Curry % (Auto) 9.7 % 05/07/24 22:00 Eos % (Auto) 0.4 % 05/07/24 22:00 Baso % (Auto) 0.7 % 05/07/24 22:00 Neut # (Auto) 3.29 10^3/uL (1.8 -7.7) 05/07/24 22:00 Lymph # (Auto) 3.1 10^3/uL (0.8- 4.8) 05/07/24 22:00 Curry # (Auto) 0.7 10^3/uL (0.2- 0.9) 05/07/24 22:00 Eos # (Auto) 0.0 10^3/uL (0.0- 0.8) 05/07/24 22:00 Baso # (Auto) 0.1 10^3/uL (0.0- 0.1) 05/07/24 22:00 Nucleated RBC % (a uto) 0 % 05/07/24 22:00 Nucleated RBCs # 0.0 /100WBC 05/07/24 22:00 Sodium 138 mmol/L (136-1 45) 05/07/24 22:00 Potassium 3.1 mmol/L (3.5-5 .1) L 05/07/24 22:00 Chloride 101 mmol/L (98-10 7) 05/07/24 22:00 Carbon Dioxide 21 mmol/L (22-29) L 05/07/24 22:00 Anion Gap 19.1 (5-19) H 05/07/24 22:00 BUN 10 mg/dL (6-20) 05/07/24 22:00 Creatinine 0.6 mg/dL (0.5-0. 9) 05/07/24 22:00 GFR Calculation 106.3 mL/min (90- 130) 05/07/24 22:00 Glucose 97 mg/dL (65-115) 05/07/24 22:00 Calculated Osmolal ity 285 mOsm/kg (285- 295) 05/07/24 22:00 Calcium 9.5 mg/dL (8.5-10 .5) 05/07/24 22:00 Total Bilirubin 1.1 mg/dL (0.15-1 .2) 05/07/24 22:00 AST 45 U/L (0-32) H 05/07/24 22:00 ALT 33 U/L (0-33) 05/07/24 22:00 Alkaline Phosphata se 85 U/L (35-105) 05/07/24 22:00 Total Protein 7.8 g/dL (6.6-8.7 ) 05/07/24 22:00 Albumin 4.2 g/dL (3.5-5.2 ) 05/07/24 22:00 Globulin 3.6 g/dL (1.3-4.6 ) 05/07/24 22:00 Urine Color Yellow (Yellow) 05/07/24 21:56 Urine Appearance Clear (CLEAR) 05/07/24 21:56 Urine pH 5.5 (5-7) 05/07/24 21:56 Ur Specific Gravit y 1.005 (1.005-1.0 30) 05/07/24 21:56 Urine Protein Negative (Negati ve) 05/07/24 21:56 Urine Glucose (UA) Negative (Normal ) 05/07/24 21: Urine Ketones Negative (Negati ve) 05/07/24 21: Urine Blood Negative (Negati ve) 05/07/24 21:56 Urine Nitrate Negative (Negati ve) 05/07/24 21:56 Urine Bilirubin Negative (Negati ve) 05/07/24 21:56 Urine Urobilinogen 1.0 mg/dL (Negati ve) 05/07/24 21:56 Ur Leukocyte Shahnaz ase Trace (Negative) A 05/07/24 21:56 Urine RBC 0-4 /hpf (0-2) H 05/07/24 21:56 Urine WBC 0-4 /hpf (0-5) H 05/07/24 21:56 Ur Squamous Epith Cells 0-4 /hpf (0-5) H 05/07/24 21:56 Amorphous Sediment Not Reportable 05/07/24 21:56 Urine Bacteria Trace /hpf (NONE) 05/07/24 21:56 Salicylates 0.5 mg/dL (3-10) L 05/07/24 22:00 Urine Opiates Scre en Negative ng/mL (N egative) 05/07/24 21:56 Acetaminophen < 5.0 ug/mL (10-3 0) L 05/07/24 22:00 Ur Barbiturates Sc reen Negative ng/mL (N egative) 05/07/24 21:56 Ur Phencyclidine S crn Negative ng/mL (N egative) 05/07/24 21:56 Ur Amphetamines Sc reen Positive ng/mL (N egative) H 05/07/24 21:56 U Benzodiazepines Scrn Negative ng/mL (N egative) 05/07/24 21:56 Urine Cocaine Scre en Negative ng/mL (N egative) 05/07/24 21:56 U Marijuana (THC) Screen Positive ng/mL (N egative) H 05/07/24 21:56 Ethyl Alcohol < 10 mg/dL (0-10) 05/07/24 22:00 Vitals: Last Vital Signs Temp 98.5 F 05/14/24 06:00 Pulse 75 05/14/24 06:00 Resp 17 05/14/24 06:00 BP 113/76 05/14/24 06:00 Pulse Ox 99 05/14/24 06:00 O2 Del Method Room Air 05/14/24 06:00 Discharge Plan Discharge Patient Disposition: Home Condition: Stable Prescriptions: New clindamycin HCl 150 mg Capsule 300 mg PO BID 6 Days Qty: 24 0RF Rx Instructions: Take for 6 days then discontinue quetiapine [Seroquel] 200 mg tablet 200 mg PO 2100 Qty: 30 1RF Continued multivitamin Tablet 1 tab PO DAILY albuterol sulfate [Ventolin HFA] 90 mcg/actuation HFA aerosol inhaler 2 inh inhalation Q4-5H PRN (Reason: shortness of breath or wheezing) citalopram 40 mg tablet 40 mg PO DAILY 30 Days Qty: 30 1RF bupropion HCl 300 mg tablet extended release 24 hr 300 mg PO DAILY 30 Days Qty: 30 1RF buprenorphine-naloxone [Suboxone] 8-2 mg film 1 film sublingual DAILY 30 Days Qty: 30 0RF Discontinued quetiapine 100 mg tablet 100 mg PO BEDTIME Discharge Orders: Discharge Order (Routine); Ordered 05/14/24 Ordered By: Philip Sood Referrals: Malini Pickens [Other] - 05/14/24 [facility] [Other] - 7-10 days (Walk in assessment from 7:00 am to 6:00 pm Sunday- and 7:30 am to 4:00 pm on Sunday. ) Talita Leon MD [Primary Care Provider] - Tim Guajardo MD [Physician] - 05/20/24 11:45 am (Follow up) Discharge Diet: Usual diet Discharge Activity: Resume usual activity Patient Instructions: Clindamycin (By mouth), Quetiapine (By mouth), Depression (DC), Methamphetamine Use Disorder (DC), Anxiety (DC), Suicide Prevention (DC), Opioid Safety Discharge Attestations NPU Time Spent in Discharge Care*: less than 30 min Specific Discharge Activities: Specific discharge activities: educating patient, discussing with case folder/social workers/dc planners and doc umenting/other paperwork Status at Discharge: Cognitive status at discharge: cognitively intact , Behavioral status at discharge: cooperative , Coding Level of Care Code Acute Code for Chg Fwd Diagnoses Unspecified psychosis F29 Depression, unspecified F32.A Borderline personality disorder F60.3 Adjustment disorder with mixed disturbance of emotions and conduct F43.25 Suicidal ideation R45.851 Methamphetamine use disorder, severe F15.20 Alcohol use disorder, severe, dependence F10.20 Opioid use disorder, severe, dependence F11.20
[2024-05-14 10:57] VITALS: BP 113/76; PULSE 75; RESP 17; TEMP 36.9; O2SAT 99
== END 2024-05-14 11:52 | disposition home or self-care (01) | DRG 883 ==
LOC: ER 05-08 00:24 → ER IP 05-08 01:20 → NP 05-08 03:56
PROVIDERS: Admitting Provider Psychiatry & Neurology Psychiatry; Emergency Provider Emergency Medicine; PCP Family Medicine; Visit Provider Psychiatry & Neurology Psychiatry
DX: F60.3 Borderline personality disorder (principal); R45.851 Suicidal ideations; F15.20 Other stimulant dependence, uncomplicated; F11.20 Opioid dependence, uncomplicated; Z59.00 Homelessness unspecified; F43.25 Adjustment disorder with mixed disturbance of emotions and conduct; F10.20 Alcohol dependence, uncomplicated; F32.A Depression, unspecified; F41.9 Anxiety disorder, unspecified; F17.210 Nicotine dependence, cigarettes, uncomplicated
CPT/HCPCS: 36415; 80053; 80306; 80307; 81001; 85025; 97150; 97165; 99285; J0573; J9999; Q0163